=== PATIENT | female | born 1940 | race Caucasian/White ===

== ENCOUNTER 2017-01-02 13:00 | Inpatient (IN) | payer MEDICARE, OTHER ==
[2017-01-09] MEDS ORDERED: Promethazine HCl 25 MG/ML VIAL IM PRN ×2 (08:54→13:03)
[2017-01-09] MEDS ORDERED: Fentanyl 100 MCG/2 ML VIAL SLOW IVP PRN (08:54)
[2017-01-09] MEDS ORDERED: Zolpidem Tartrate 5 MG TAB PO PRN ×2 (08:54→08:57)
[2017-01-09] MEDS ORDERED: Acetaminophen 325 MG TAB PO PRN (08:54)
[2017-01-09] MEDS ORDERED: Ondansetron HCl/PF 4 MG/2 ML Vial IVP PRN ×2 (08:54→13:03)
[2017-01-09] MEDS ORDERED: diphenhydrAMINE 25 MG CAP PO PRN (08:54)
[2017-01-09] MEDS ORDERED: Tranexamic Acid 1,000 MG in Sodium Chloride 0.9% 100 ML IVPB SCH (09:00)
[2017-01-09] MEDS ORDERED: Carvedilol 6.25 MG TAB PO SCH (09:00)
[2017-01-09] MEDS ORDERED: Clindamycin/D5W 900 mg/50 ml Premix Bag ONE (09:40)
[2017-01-09] MEDS ORDERED: Levofloxacin 500 mg/D5W 100 ml Premix Bag ONE (09:40)
[2017-01-09] MEDS ORDERED: Tranexamic Acid 1,000 MG/100 ML BAG ONE ×2 (09:40→13:14)
[2017-01-09] MEDS ORDERED: Fentanyl 100 MCG/2 ML VIAL ONE ×4 (10:03→14:12)
[2017-01-09] MEDS ORDERED: Midazolam HCl 2 mg/2 ml Vial ONE (10:03)
[2017-01-09] MEDS ORDERED: Dexamethasone 4 mg/ml Vial ONE (10:03)
[2017-01-09] MEDS ORDERED: Glycopyrrolate 0.2 MG/ML 5 ML SYRINGE ONE (11:15)
[2017-01-09] MEDS ORDERED: Lidocaine 1% PF 5 ML VIAL ONE (11:15)
[2017-01-09] MEDS ORDERED: Ondansetron HCl/PF 4 MG/2 ML Vial ONE (11:15)
[2017-01-09] MEDS ORDERED: Dexamethasone 20 MG/5 ML VIAL ONE (11:15)
[2017-01-09] MEDS ORDERED: Propofol 200 MG/20 ML VIAL ONE (11:15)
[2017-01-09] MEDS ORDERED: Promethazine HCl 25 MG/ML VIAL SLOW IVP PRN (13:03)
--- NOTE | 2017-01-09 13:21 | OP ---
DATE OF PROCEDURE: 01/09/2017 PREOPERATIVE DIAGNOSIS: End-stage bicompartmental osteoarthritis, left hip. POSTOPERATIVE DIAGNOSIS: End-stage bicompartmental osteoarthritis, left hip. PROCEDURE: Press-fit left total hip arthroplasty. SURGEON: Wilman Walter M.D. RN CLINICAL REVIEW: Kermit Maharaj PA-C. ANESTHESIA: General via endotracheal tube, augmented with a shot fascia iliac block, left side. COMPONENTS USED: [facility] Accolade press fit size 3.5 hip stem with a 36 mm -5 offset me tallic femoral coupled with a size 50 Trident PSL press fit acetabular shell with a 10 degree polyet hylene fixed bearing insert. ESTIMATED BLOOD LOSS: 200 mL. FINDINGS: End-stage severe degenerative bicompartmental disease, bone on bone arthrosis, periarticu lar osteophyte formation, large tear. Serous fusion, hypertrophic synovium and flex contracture of left hip capsule. DRAINS: None. SPECIMENS: None. COMPLICATIONS: None. COUNTS: Correct. INDICATIONS FOR SURGERY: Marilynn is a 76-year-old white female who has had progressive left hip, groi n, and thigh pain for the last 5-7 years. She has failed conservative management and elected to pro ceed with total hip arthroplasty as definitive treatment of her pain. PROCEDURE IN DETAIL: After informed consent was obtained in the preoperative holding area, the jaquelin ent was taken to the operative suite where general anesthesia was induced. The patient was then pos itioned in the lateral decubitus position. The hip was then prepped and draped in usual sterile fas hion. The patient received preoperative antibiotics. Prior to incision, time-out was called and al l members of the surgical team agreed upon site, surgeon, and patient. After this, a longitudinal i ncision was made directly over the trochanter, noted by palpation extending 2 fingerbreadths above a nd below the trochanter. The deeper subcutaneous layer was undermined with Bovie electrocautery. T he iliotibial band was encountered and incised sharply and the plane below this was developed bluntl y. A Charnley retractor was placed to hold this opened. The lateral aspect of the trochanter and t he abductor muscles were encountered and then reflected anteriorly off the trochanter using Bovie el ectrocautery. Once this was completed, the anterior capsule was then encountered and identified and copious capsulotomy was carried out, exposing the femoral neck and head. Dislocation maneuver was t hen performed and an in situ provisional neck cut was then made using the oscillating saw. Attentio n was then turned to acetabular preparation and sequential reaming was carried out up to the appropr iate diameter and a trial was then malleted into place with good firm resistance and no pullout. Th e permanent acetabular shell was then malleted squarely into place, as was the appropriate liner. O nce completed, the wound was copiously irrigated and attention was then turned to femoral preparatio n. Flexion and external rotation was performed of the exposed thigh and femoral elevators were then placed at the proximal aspect of the wound. Canal finder was used to establish the length of the ca nal and sequential reaming was carried out, followed by broaching. Once the appropriate stability w as established with the trial broaches with both flexion, extension and rotational stability, we did trial with neutral and 2 mm offset incremental necks. Once the appropriate size was decided upon, with good stability noted with flexion, extension, internal and external rotation and shuck being ne gative, we removed the femoral trial broach and malletted into place the permanent prosthesis with g ood firm fit, which was also stable to rotation. Again, the hip felt very stable to flexion, extens ion, internal and external rotation. Leg lengths appeared near anatomic clinically and we were quit e happy with prosthesis placement. Copious irrigation was then carried out through the entirety of the wound. Primary closure of the abductors was accomplished with interrupted #2 Vicryl figure-of-e ight stitches and the IT band was then closed with interrupted #2 Vicryl, oversewn with a #2 running barbed Quill stitch. Subcutaneous fascia was closed with running barbed Quill stitch and a subcuti cular Monocryl barbed Quill stitch was used for skin closure and augmented with skin cement. A ster ile dressing was applied. The procedure was terminated without any complication. All counts were co rrect. The patient was awakened in the operative suite and taken to the recovery room in stable con dition.
[2017-01-09] MEDS ORDERED: Bupivacaine HCl 0.5%/Epinephrine 1:200,000/PF 30 ml Vial ONE (14:47)
[2017-01-09] MEDS: Aripiprazole 2 MG TAB PO SCH (14:54)
[2017-01-09] MEDS: Aspirin 325 MG TAB PO SCH ×2 (14:54→21:10)
[2017-01-09] MEDS: Amlodipine 5 MG TAB PO SCH (14:54)
[2017-01-09] MEDS: Lisinopril/Hydrochlorothiazide 20 mg/12.5 mg Tablet PO SCH (14:55)
[2017-01-09] MEDS: hydrALAZINE 25 MG TAB PO SCH ×3 (14:55→21:13)
[2017-01-09] MEDS: Sodium Chloride 0.9% 1,000 ML IV SCH ×2 (14:56→15:56)
--- NOTE | 2017-01-09 14:56 | RAD ---
LEFT HIP: Date: 01-09-17 History: Evaluate hip following total hip arthroplasty. FINDINGS: There is post-operative gas adjacent to the left greater trochanter. There is a left total hip arthr oplasty present demonstrating no evidence for hardware failure. No acute fracture is evident. IMPRESSION: Status post total hip arthroplasty on the left. POS: [facility]
[2017-01-09] MEDS ORDERED: cloNIDine 0.1 MG TAB PO PRN (15:16)
[2017-01-09] MEDS: traMADol HCl 50 MG TAB PO PRN (15:54)
--- NOTE | 2017-01-09 16:32 | CON ---
DATE OF CONSULTATION: 01/09/2017 PRIMARY CARE PHYSICIAN: AMERICO Calle CONSULTING PHYSICIAN: Dr. Wilman Walter. HISTORY OF PRESENTING ILLNESS: Ms. Betancourt is a very pleasant 76-year-old female with past medical his tory of hypertension; chronic kidney disease, stage 3; and dyslipidemia, who underwent left hip tota l arthroplasty today at [facility] for advanced osteoarthritis. She is status post surg familia and internal medicine team has been consulted for medical management. Chart and labs reviewed f rom most recent work done. The patient was seen and examined in the room 3316. At this time, the patient reports some pain in the surgical area. She is about one hour post-surger y. Family is present in the room. No other complaints at this time. She denies any recent illness es. No fever, chills, nausea, vomiting, diarrhea. No hematochezia or melena. No chest pain, short ness of breath, orthopnea, PND, or edema. She denies any dysuria, frequency or urgency. PAST MEDICAL HISTORY: 1. Hypertension. 2. Dyslipidemia. 3. GERD. 4. Chronic kidney disease, stage 3. PAST SURGICAL HISTORY: 1. Back surgery x3. 2. Stimulator implantation. 3. Hysterectomy. ALLERGIES: TORADOL, BUTORPHANOL, ROCEPHIN, and VANCOMYCIN. SOCIAL HISTORY: She is and lives alone. She moves around with the help of a walker. She h as no history of tobacco or alcohol abuse. FAMILY HISTORY: Significant for lung cancer in her brother. CURRENT MEDICATIONS: Listed in the [facility] as follows, lisinopril/hydrochlorothiazide 20/12.5 mg d aily, Cymbalta 1 tablet p.o. daily, Abilify 1 tab p.o. in the morning, Coreg 12.5 mg p.o. b.i.d., as pirin 81 mg daily, Norvasc 5 mg in the morning, Voca as needed, Ambien 10 mg at bedtime as needed, pravastatin 40 mg at night, Protonix 40 mg p.o. b.i.d., hydralazine 50 mg p.o. t.i.d., and vitamin D 3 of 2000 units daily. REVIEW OF SYSTEMS: The following complete review of systems was negative, except for those mentione d in the history and physical: Constitutional: Weight loss or gain, ability to conduct usual activities. Skin: Rash, itching. Eyes: Double vision, pain. ENT/Mouth: Nose bleeding, neck stiffness, pain, tenderness. Cardiovascular: Palpitations, dyspnea on exertion, orthopnea. Respiratory: Shortness of breath, wheezing, cough, hemoptysis, fever, or night sweats. Gastrointestinal: Poor appetite, abdominal pain, heartburn, nausea, vomiting, constipation, or diar malcom. Genitourinary: Urgency, frequency, dysuria, nocturia. Musculoskeletal: Pain, swelling. Neurologic/Psychiatric: Anxiety, depression. Allergy/Immunologic: Skin rash, bleeding tendency. LABORATORY EXAMINATION: PT, PTT, and INR drawn today and are within normal limits. Labs are review ed from 01/02/2017. CBC shows WBCs at 7.7, hemoglobin 11, platelet count of 290, 80% neutrophils. Serum chemistries show sodium 138, potassium 4.5, chloride 108, bicarbonate 16, BUN 33, creatinine 1 .66, calcium 9.0. Her urinalysis on 01/02/2017 showed small leukocyte esterase, 21-50 wbc's, +4 edgardo teria, and +1 yeast. PHYSICAL EXAMINATION: VITAL SIGNS: Include temperature 97.3, pulse of 72, respirations 18, saturating 93% on room air, bl ood pressure 105/85. GENERAL: No acute distress, awake, alert, oriented x3. She is somewhat somnolent as an after effec t of anesthetic and pain medications most likely, but easily woken up. HEENT: Mucous membrane is slightly dry. No oropharyngeal exudate or erythema. Head is normocephal ic, atraumatic. Pupils equal, reactive to light and accommodation. Extraocular movements intact. NECK: Supple without any lymphadenopathy, JVD, or bruit. CHEST: Clear to auscultation without any wheezing, rales, or rhonchi. Rate and rhythm is regular w ithout any murmur, rubs, or gallops. ABDOMEN: Soft, nontender, nondistended with positive bowel sounds. EXTREMITIES: Free of any cyanosis, clubbing, or edema. NEUROLOGIC: Nonfocal. SKIN: Free of any rashes or bruises. Feels warm and dry to touch. VASCULAR: +2 pedal pulses felt bilaterally. PSYCHIATRIC: Normal affect. IMPRESSION AND PLAN: 1. History of hypertension. The patient was last admitted to our facility in 07/2016 with complain ts of hypotension and nearly passing out. At this time, we will be carefully restarting her home me dications with parameters of holding for systolic blood pressure less than 120. 2. Status post left total hip arthroplasty. Deep venous thrombosis prophylaxis and pain control as per the primary team. The patient is on aspirin twice a day. 3. Possible urinary tract infection. The patient has been started on levofloxacin at this time. W e will continue that. Her last urine culture was done in 01/2016, which showed Escherichia coli, wh ich was resistant to ciprofloxacin, Bactrim, and ampicillin. At this time, she is also receiving cl indamycin as the postoperative antibiotics. We will repeat her urinalysis and culture at this time. Given her resistant species in the past, we would recommend changing her from levofloxacin to poss ibly cephalosporin, but unfortunately the patient is allergic to it. The only choice left would be to start her on meropenem at this time. We will add probiotics. 4. History of dyslipidemia. Continue with atorvastatin for now. 5. Chronic kidney disease. It appears to be at baseline. Continue for IV fluids as per orders fro Orthopedics for now. Repeat CBC and BMP in the morning. 6. Add p.r.n. medication orders. DISPOSITION: Thank you for letting us participate in the care of this pleasant patient. Internal medicine team will follow along.
[2017-01-09] MEDS: MEROPENEM 1 GM/50 ML 1 GM in Premix Bag 1 BAG IVPB SCH (17:15)
[2017-01-09] MEDS: Clindamycin/D5W 600 MG in Premix Bag 1 BAG IVPB SCH (17:22)
[2017-01-09] MEDS: HYDROcodone/Acetaminophen 10/325 mg Tablet PO PRN ×2 (17:32→21:36)
[2017-01-09 19:36] LABS: Bilirubin Negative (Negative); Blood, Urine Negative (Negative); Glucose, Urine (Dipstick) 100 mg/dL (Negative); Ketone, Urine Negative (Negative); Nitrite Negative (Negative); Protein, Urine (Dipstick) 100 mg/dL (Neg-Trace); Urobilinogen 0.2 mg/dL (0.2-1.0)
[2017-01-09 19:38] LABS: Bacteria/HPF None Seen HPF (None Seen); Hyaline Casts/LPF 0-3 HYALINE CAST LPF (0-3 Hyaline); RBC/HPF 0-3 HPF (0-3); Squamous Epithelial 0-3 HPF (0-3); WBC/HPF 0-3 HPF (0-3)
[2017-01-09] MEDS: Carvedilol 6.25 MG TAB PO SCH (21:11)
[2017-01-09] MEDS: Atorvastatin Calcium 10 MG TAB PO SCH (21:14)
[2017-01-09] MEDS: Oxybutynin 5 MG TAB PO SCH (21:14)
[2017-01-09] MEDS ORDERED: Vancomycin HCl 1.5 GM in Sodium Chloride 0.9% 250 ML 300 ML IVPB SCH (22:00)
[2017-01-09] MEDS ORDERED: Meropenem 1 GM in Sodium Chloride 0.9% 100 ML IVPB SCH (22:00)
[2017-01-10] MEDS: traMADol HCl 50 MG TAB PO PRN ×2 (00:38→19:51)
[2017-01-10] MEDS: MEROPENEM 1 GM/50 ML 1 GM in Premix Bag 1 BAG IVPB SCH ×3 (00:54→15:32)
[2017-01-10] MEDS: Sodium Chloride 0.9% 1,000 ML IV SCH ×2 (02:38→15:33)
[2017-01-10] MEDS: Clindamycin/D5W 600 MG in Premix Bag 1 BAG IVPB SCH ×2 (02:39→08:54)
[2017-01-10] MEDS: HYDROcodone/Acetaminophen 10/325 mg Tablet PO PRN ×3 (02:46→15:47)
[2017-01-10] MEDS: Fentanyl 100 MCG/2 ML VIAL SLOW IVP PRN ×2 (04:19→22:16)
[2017-01-10 05:17] LABS: #Monocytes 0.7 thou/uL (0.11-0.59); #Neutrophils 9.5 thou/uL (1.40-6.50); %Basophils 0.1 % (0.0-1.0); %Eosinophils 0.3 % (0.0-10.0); %Lymphocytes 9.1 % (21.0-51.0); %Monocytes 5.8 % (0.0-10.0); Hematocrit 29.3 % (36.0-47.0); Mean Platelet Volume 6.3 fL (7.4-10.4); Red Blood Cell (RBC) Count 3.08 mill/uL (4.20-5.40); White Blood Cell (WBC) Count 11.2 thou/uL (4.8-10.8)
[2017-01-10 05:31] LABS: Anion Gap 12 mmol/L (10-20); BUN (Urea Nitrogen) 40 mg/dL (9.8-20.1); Calc. Creatinine Clearance 34 mL/min (70-130); Calcium 8.6 mg/dL (7.8-10.44); Carbon Dioxide 20 mmol/L (23-31); Chloride 106 mmol/L (98-107); Estimated GFR-MDRD 25
--- NOTE | 2017-01-10 07:51 | PDOC.PN ---
- Subjective Encounter Start Date: 01/10/17 Encounter Start Time: 07:49 -: old records requested/rev Patient seen and examined. No new complaints. No overnight events - Objective Resuscitation Status: Resuscitation Status FULL:Full Resuscitation MAR Reviewed: Yes Vital Signs & Weight: Vital Signs (12 hours) Temp Pulse Resp BP BP Pulse Ox 01/10/17 04:15 98.5 F 77 15 104/65 92 L 01/10/17 00:34 98 F 75 16 120/75 92 L 01/09/17 21:13 87 136/78 01/09/17 21:11 136/78 01/09/17 20:18 97.9 F 86 15 136/78 96 Weight Weight 194 lb 0.003 oz I&O: 01/09/17 01/10/17 01/11/17 06:59 06:59 06:59 Intake Total 200 Output Total 700 Balance -500 Result Diagrams: 01/10/17 04:32 01/10/17 04:32 Radiology Reviewed by me: Yes Phys Exam - Physical Examination Constitutional: NAD HEENT: PERRLA, moist MMs, sclera anicteric Neck: no JVD, supple Respiratory: no wheezing, no rales, no rhonchi Cardiovascular: RRR, no significant murmur, no rub Gastrointestinal: soft, non-tender, no distention, positive bowel sounds Musculoskeletal: no edema, pulses present left hip surgical site with dressing Neurological: non-focal, normal sensation Psychiatric: normal affect, A&O x 3 Skin: no rash, normal turgor Dx/Plan (1) Status post left hip replacement Code(s): Z96.642 - PRESENCE OF LEFT ARTIFICIAL HIP JOINT Status: Acute (2) Obesity (BMI 30.0-34.9) Code(s): E66.9 - OBESITY, UNSPECIFIED Status: Chronic (3) Anxiety and depression Code(s): F41.9 - ANXIETY DISORDER, UNSPECIFIED; F32.9 - MAJOR DEPRESSIVE DISORDER, SINGLE EPISODE, UNSPECIFIED Status: Chronic (4) Chronic pain disorder Code(s): G89.4 - CHRONIC PAIN SYNDROME Status: Chronic Comment: (5) Dyslipidemia Code(s): E78.5 - HYPERLIPIDEMIA, UNSPECIFIED Status: Chronic (6) Hypertension Code(s): I10 - ESSENTIAL (PRIMARY) HYPERTENSION Status: Chronic Qualifiers: (7) CKD (chronic kidney disease) stage 4, GFR 15-29 ml/min Code(s): N18.4 - CHRONIC KIDNEY DISEASE, STAGE 4 (SEVERE) Status: Chronic (8) Anemia of renal disease Code(s): D63.1 - ANEMIA IN CHRONIC KIDNEY DISEASE Status: Chronic (9) GERD (gastroesophageal reflux disease) Code(s): K21.9 - GASTRO-ESOPHAGEAL REFLUX DISEASE WITHOUT ESOPHAGITIS Status: Chronic Qualifiers: Esophagitis presence: with esophagitis Qualified Code(s): K21.0 - Gastro- esophageal reflux disease with esophagitis - Plan cont current plan of care, PT/OT, nephrology social worker * continue aspirin for DVT prophylaxis * continue protonix for GI prophylaxis * continue iron * pain controlled with current pain meds * home medication reconciled * medication reviewed as below * symptomatic treatment * PT/OT as per [facility] protocol * code status- Full code... Review of Systems - Review of Systems ENT: negative: Ear Pain, Ear Discharge, Nose Pain, Nose Discharge, Nose Congestion, Mouth Pain, Mouth Swelling, Throat Pain, Throat Swelling, Other Respiratory: negative: Cough, Dry, Shortness of Breath, Hemoptysis, SOB with Excertion, Pleuritic Pain, Sputum, Wheezing Cardiovascular: negative: Chest Pain, Palpitations, Orthopnea, Paroxysmal Noc. Dyspnea, Edema, Light Headedness, Other Gastrointestinal: negative: Nausea, Vomiting, Abdominal Pain, Diarrhea, Constipation, Melena, Hematochezia, Other Genitourinary: negative: Dysuria, Frequency, Incontinence, Hematuria, Retention , Other Musculoskeletal: negative: Neck Pain, Shoulder Pain, Arm Pain, Back Pain, Hand Pain, Leg Pain, Foot Pain, Other - Medications/Allergies Allergies/Adverse Reactions: Allergies Allergy/AdvReac Type Severity Reaction Status Date / Time ketorolac [From Toradol] Allergy Verified 01/02/17 12:39 butorphanol tartrate AdvReac Verified 01/02/17 12:39 [From Stadol] ceftriaxone sodium AdvReac Verified 01/02/17 12:39 [From Rocephin] vancomycin AdvReac Verified 01/02/17 12:39 Medications: Current Medications Acetaminophen (Tylenol) 650 mg PO Q4H PRN PRN Reason: RUSS/ T > 101F; Mild Pain (1-3) Hydrocodone Bitart/Acetaminophen ([place] 10/325) 1 tab PO Q4H PRN PRN Reason: Moderate Pain (4-6) Last Admin: 01/09/17 17:32 Dose: 1 tab Hydrocodone Bitart/Acetaminophen ([place] 10/325) 2 tab PO Q4H PRN PRN Reason: Severe Pain (7-10) Last Admin: 01/10/17 02:46 Dose: 2 tab Amlodipine Bes[facility]) [facility] [place] Last Admin: 01/09/17 14:54 Dose: Not Given Aripiprazole (Abilify) [facility] [place] Last Admin: 01/09/17 14:54 Dose: Not Given Aspirin (Aspirin) 325 mg PO BID [facility] Last Admin: 01/09/17 21:10 Dose: 325 mg Atorvastatin Calcium (Lipitor) 10 mg PO QPM [facility] Last Admin: 01/09/17 21:14 Dose: 10 mg Carvedilol (Coreg) 12.5 mg PO BID [facility] Last Admin: 01/09/17 21:11 Dose: 12.5 mg Cholecalciferol (Vitamin D3) 2,000 units PO DAILY [facility] Last Admin: 01/09/17 14:54 Dose: Not Given Clonidine (Catapres) 0.1 mg PO Q4H PRN PRN Reason: SBP>160 Diphenhydramine HCl (Benadryl) 25 mg PO Q6H PRN PRN Reason: Itching Duloxetine HCl (Cymbalta) [facility] [place] Last Admin: 01/09/17 14:54 Dose: Not Given Fentanyl (Sublimaze) 50 mcg SLOW IVP Q30MIN PRN PRN Reason: Moderate Pain (4-6) Last Admin: 01/10/17 04:19 Dose: 50 mcg Fentanyl (Sublimaze) 100 mcg SLOW IVP Q1H PRN PRN Reason: Severe Pain (7-10) Ferrous Gluconate (Fergon) 324 mg PO BID-[facility] Lisinopril/HCTZ (Prinizide 20-12.5) 1 tab PO QAM [facility] Last Admin: 01/09/17 14:55 Dose: Not Given Hydralazine HCl (Apresoline) 50 mg PO TID [facility] Last Admin: 01/09/17 21:13 Dose: 50 mg Sodium Chloride (Normal Saline 0.9%) 1,000 mls @ 100 mls/hr IV .Q10H [facility] Last Admin: 01/10/17 02:38 Dose: 1,000 mls Levofloxacin 500 mg/ Device 100 mls @ 100 mls/hr IVPB Q24HR [facility] Stop: 01/10/17 23:59 Clindamycin Phosphate/Dextrose (600 mg/ Device) 50 mls @ 100 mls/hr IVPB 0200, 1000,1800 [facility] Stop: 01/10/17 10:29 Last Admin: 01/10/17 02:39 Dose: 50 mls Meropenem 1 gm/ Device 50 mls @ 100 mls/hr IVPB 0800,1600,2359 [facility] Last Admin: 01/10/17 00:54 Dose: 50 mls Iron/Minerals/Multivitamins (Theragran M) 1 tab PO DAILY [facility] Ondansetron HCl (Zofran) 4 mg IVP Q6H PRN PRN Reason: Nausea/Vomiting Oxybutynin Chloride (Ditropan) 5 mg PO BID [facility] Last Admin: 01/09/17 21:14 Dose: 5 mg Pantoprazole Sodium (Protonix) 40 mg PO BID [facility] Last Admin: 01/09/17 21:14 Dose: 40 mg Promethazine HCl (Phenergan) 12.5 mg IM Q4H PRN PRN Reason: Nausea/Vomiting Saccharomyces Boulardii (Florastor) 250 mg PO DAILY [facility] Senna/Docusate Sodium (Senokot S) 2 tab PO BID [facility] Sodium Chloride (Flush - Normal Saline) 10 ml IVF PRN PRN PRN Reason: Saline Flush Tramadol HCl (Ultram) 100 mg PO Q6H PRN PRN Reason: Mild Pain (1-3) Last Admin: 01/10/17 00:38 Dose: 100 mg Zolpidem Tartrate (Ambien) 5 mg PO HSPRN PRN PRN Reason: Insomnia Last Admin: 01/09/17 21:37 Dose: 5 mg
[2017-01-10] MEDS: Lisinopril/Hydrochlorothiazide 20 mg/12.5 mg Tablet PO SCH (08:55)
[2017-01-10] MEDS: hydrALAZINE 25 MG TAB PO SCH ×3 (08:55→22:06)
[2017-01-10] MEDS: Aspirin 325 MG TAB PO SCH ×2 (08:55→22:04)
[2017-01-10] MEDS: Amlodipine 5 MG TAB PO SCH (08:55)
[2017-01-10] MEDS: Multivitamin W/ Minerals 1 TAB PO SCH (08:56)
[2017-01-10] MEDS: Saccharomyces boulardii 250 MG CAP PO SCH (08:56)
[2017-01-10] MEDS: Senokot S 8.6-50 MG TAB PO SCH ×2 (08:56→22:08)
[2017-01-10] MEDS: Oxybutynin 5 MG TAB PO SCH ×2 (08:56→22:07)
[2017-01-10] MEDS: Ferrous Gluconate 324 MG TAB PO SCH ×2 (08:57→18:01)
[2017-01-10] MEDS: Carvedilol 6.25 MG TAB PO SCH ×2 (08:57→22:07)
[2017-01-10] MEDS: Aripiprazole 2 MG TAB PO SCH (08:58)
[2017-01-10] MEDS: Atorvastatin Calcium 10 MG TAB PO SCH (22:07)
[2017-01-11] MEDS: MEROPENEM 1 GM/50 ML 1 GM in Premix Bag 1 BAG IVPB SCH ×3 (00:28→17:57)
[2017-01-11] MEDS: Sodium Chloride 0.9% 1,000 ML IV SCH ×2 (01:24→14:35)
[2017-01-11] MEDS: HYDROcodone/Acetaminophen 10/325 mg Tablet PO PRN ×3 (01:32→17:55)
[2017-01-11 04:25] LABS: Hematocrit 26.7 % (36.0-47.0); Mean Platelet Volume 5.9 fL (7.4-10.4); Red Blood Cell (RBC) Count 2.77 mill/uL (4.20-5.40); White Blood Cell (WBC) Count 10.2 thou/uL (4.8-10.8)
[2017-01-11] MEDS: Ferrous Gluconate 324 MG TAB PO SCH ×2 (09:02→17:51)
[2017-01-11] MEDS: Senokot S 8.6-50 MG TAB PO SCH (09:04)
[2017-01-11] MEDS: Multivitamin W/ Minerals 1 TAB PO SCH (09:05)
[2017-01-11] MEDS: Saccharomyces boulardii 250 MG CAP PO SCH (09:06)
[2017-01-11] MEDS: Lisinopril/Hydrochlorothiazide 20 mg/12.5 mg Tablet PO SCH (09:06)
[2017-01-11] MEDS: Amlodipine 5 MG TAB PO SCH (09:07)
[2017-01-11] MEDS: Aspirin 325 MG TAB PO SCH (09:07)
[2017-01-11] MEDS: Carvedilol 6.25 MG TAB PO SCH (09:10)
[2017-01-11] MEDS: Oxybutynin 5 MG TAB PO SCH (09:12)
[2017-01-11] MEDS: hydrALAZINE 25 MG TAB PO SCH ×2 (09:15→17:51)
[2017-01-11] MEDS: Aripiprazole 2 MG TAB PO SCH (10:04)
--- NOTE | 2017-01-11 11:22 | PDOC.PN ---
- Subjective Encounter Start Date: 01/11/17 Encounter Start Time: 11:18 Ms. Betancourt was seen in follow-up of Hypertension, and chronic kidney disease. She is a bit drowsy this morning, but otherwise does not have any complaints. - Objective Resuscitation Status: Resuscitation Status FULL:Full Resuscitation MAR Reviewed: Yes Vital Signs & Weight: Vital Signs (12 hours) Temp Pulse Resp BP BP Pulse Ox 01/11/17 09:15 90 111/72 01/11/17 09:10 111/72 01/11/17 09:07 90 01/11/17 09:06 90 01/11/17 07:55 99.2 F 90 14 111/72 93 L 01/11/17 05:24 98.7 F 84 18 103/63 92 L 01/11/17 01:05 98.7 F 81 18 107/69 93 L Weight Admit Weight 194 lb Weight 194 lb I&O: 01/10/17 01/11/17 01/12/17 06:59 06:59 06:59 Intake Total 200 Output Total 700 600 300 Balance -500 -600 -300 Result Diagrams: 01/11/17 04:15 01/10/17 04:32 Phys Exam - Physical Examination HEENT: PERRLA Respiratory: no wheezing, no rales, no rhonchi, clear to auscultation bilateral Cardiovascular: RRR, no significant murmur, no rub Gastrointestinal: soft, non-tender, positive bowel sounds Musculoskeletal: no edema Dx/Plan (1) Hypertension Code(s): I10 - ESSENTIAL (PRIMARY) HYPERTENSION Status: Chronic Qualifiers: (2) Status post left hip replacement Code(s): Z96.642 - PRESENCE OF LEFT ARTIFICIAL HIP JOINT Status: Acute (3) CKD (chronic kidney disease) stage 4, GFR 15-29 ml/min Code(s): N18.4 - CHRONIC KIDNEY DISEASE, STAGE 4 (SEVERE) Status: Chronic (4) GERD (gastroesophageal reflux disease) Code(s): K21.9 - GASTRO-ESOPHAGEAL REFLUX DISEASE WITHOUT ESOPHAGITIS Status: Chronic Qualifiers: Esophagitis presence: with esophagitis Qualified Code(s): K21.0 - Gastro- esophageal reflux disease with esophagitis (5) Obesity (BMI 30.0-34.9) Code(s): E66.9 - OBESITY, UNSPECIFIED Status: Chronic - Plan * HTN- blood pressure has been on the lower side, and her blood pressure medications were held this morning. Will continue to hold * Hyperkalemia- She tends to run on the higher side, even on past admissions, hopefully by holding Lisinopril this will help * Chronic kidney disease- she is at her baseline level of creatinine * .
[2017-01-11 20:24] VITALS: BMI 31.1
[2017-01-11 20:32] VITALS: BP 116/73; TEMP 98.7
--- NOTE | 2017-01-12 06:13 | DIS ---
DATE OF ADMISSION: 01/09/2017 PRIMARY CARE PHYSICIAN: 01/11/2017 DISCHARGE DISPOSITION: Inpatient rehabilitation. DISCHARGE DIAGNOSES: 1. Status post left hip arthroplasty. 2. Hypertension. 3. Chronic kidney disease stage 3. 4. Hyperkalemia. 5. Hyperlipidemia. 6. Probable volume depletion. DISCHARGE MEDICATIONS: Please note that the patient's lisinopril/hydrochlorothiazide is currently on hold. This is due to elevated potassium level as well as low blood pressure that she experienced du ring her hospital stay. It is to be restarted after a BMP has been ordered and will be restarted at the discretion of the attending physician. Other medications include Pravastatin 40 mg at bedtime, pantoprazole 40 mg twice a day, oxybutynin 5 mg twice a day, [place] 10/325 one half tablet as needed, Cymbalta 60 mg daily, hydralazine 50 mg 3 maribell es a day, vitamin D3, cholecalciferol 2000 units daily, Coreg 12.5 mg twice a day, aspirin 81 mg douglas y, Aripiprazole 1 tablet daily, and amlodipine 5 mg daily. CODE STATUS: Full code. ALLERGIES: TORADOL, BUTORPHANOL, CEFTRIAXONE and VANCOMYCIN. HOSPITAL COURSE: Ms. Betancourt is a pleasant 76-year-old female who was admitted for an elective left tot al hip replacement. The Hospitalist Service was consulted for the management of hypertension as well as chronic kidney disease. The patient had a fairly uneventful postoperative course; however, she d id experience some hypotension postoperatively. This required her antihypertensive medications to be held. Her blood pressure had been recorded as low as 90 systolic. She also was noted to have stabl e chronic kidney disease. Her creatinine of 1.94 with very close to her baseline; however, her potas sium was slightly elevated. Given these indices we will go ahead and hold her lisinopril/hydrochloro thiazide which was also on hold due to her low blood pressure. Once she is in rehab her BMP should b e checked in about 2 days. Continue to hold the lisinopril during this time and then restart after t he BMP results are available to the attending physician and then he can restart the lisinopril/hydroc hlorothiazide if it is felt indicated. Amlodipine will also be held for systolic blood pressure less than 110. At the time of discharge she was stable with no additional complaints.
== END 2017-01-11 19:24 | DRG 470 ==
LOC: SJJU 01-09 08:06
PROVIDERS: ADMIT Orthopaedic Surgery; ATTEND Orthopaedic Surgery
PROC: 0SRB02A Replacement of Left Hip Joint with Metal on Polyethylene Synthetic Substitute, Uncemented, Open Approach (ICD-10-PCS; principal; 2017-01-09)
PROC: 3E0T3BZ Introduction of Anesthetic Agent into Peripheral Nerves and Plexi, Percutaneous Approach (ICD-10-PCS; 2017-01-09)
DX: M16.12 Unilateral primary osteoarthritis, left hip (principal); E87.5 Hyperkalemia; N39.0 Urinary tract infection, site not specified; M87.052 Idiopathic aseptic necrosis of left femur; N18.3 Chronic kidney disease, stage 3 (moderate); E78.5 Hyperlipidemia, unspecified; I12.9 Hypertensive chronic kidney disease with stage 1 through stage 4 chronic kidney disease, or unspecified chronic kidney disease; I95.81 Postprocedural hypotension; K21.9 Gastro-esophageal reflux disease without esophagitis; E66.9 Obesity, unspecified; Z68.30 Body mass index [BMI] 30.0-30.9, adult; F41.9 Anxiety disorder, unspecified; F32.9 Major depressive disorder, single episode, unspecified; G89.4 Chronic pain syndrome; D63.1 Anemia in chronic kidney disease
CPT/HCPCS: 36415; 80048; 81003; 81015; 85027; 85610; 85730; 87086; C1776; G8978-GP-CM; G8979-GP-CI; G8987-GO-CJ; J0670; J1100; J1956; J2001; J2250; J2405; J2704; J3010; J3490

== ENCOUNTER 2017-08-22 10:10 | Outpatient (CLI) | payer MEDICARE, OTHER | END 2017-08-22 10:11 | disposition home or self-care (01) | LOC: BICCT 10:10 | PROVIDERS: ATTEND Internal Medicine Nephrology | DX: N28.89 Other specified disorders of kidney and ureter (principal); E27.9 Disorder of adrenal gland, unspecified; R91.8 Other nonspecific abnormal finding of lung field; N28.1 Cyst of kidney, acquired; N26.1 Atrophy of kidney (terminal); I70.90 Unspecified atherosclerosis; K44.9 Diaphragmatic hernia without obstruction or gangrene | CPT/HCPCS: 71250; 74150 ==

== ENCOUNTER 2017-09-14 12:17 | Emergency (ER) | payer MEDICARE, OTHER ==
[2017-09-14] MEDS ORDERED: Lidocaine 1% w/Epinephrine 1:100K 20 ML VIAL ONE (12:35)
[2017-09-14] MEDS ORDERED: Adacel (T-DAP) 0.5 ML VIAL ONE (12:35)
--- NOTE | 2017-09-14 13:06 | RAD ---
THREE VIEWS OF THE LEFT FORELEG: HISTORY: Left leg pain and laceration status post fall from bed 2-3 hours prior to arrival. FINDINGS: There is a laceration involving the anterior aspect of the mid left foreleg without evidence of radio paque debris. No acute fracture is evident. There is an intraarticular body measuring 1.8 cm overly ing the posterolateral aspect of the left knee joint. IMPRESSION: Soft tissue laceration of the anterior left foreleg. No acute fracture demonstrated. POS: [facility]
[2017-09-14] MEDS ORDERED: Bacitracin Zinc 1 Packet ONE ×2 (13:28→13:29)
== END 2017-09-14 13:54 | disposition home or self-care (01) ==
LOC: SCSER 12:17
DX: S81.812A Laceration without foreign body, left lower leg, initial encounter (principal); E78.5 Hyperlipidemia, unspecified; I10 Essential (primary) hypertension; F32.9 Major depressive disorder, single episode, unspecified; Z79.82 Long term (current) use of aspirin; Z79.899 Other long term (current) drug therapy; W06.XXXA Fall from bed, initial encounter
CPT/HCPCS: 12004; 90471; 90715; J2001

== ENCOUNTER 2018-02-27 09:53 | Outpatient (CLI) | payer MEDICARE, OTHER ==
--- NOTE | 2018-02-27 11:39 | ULT ---
RENAL ULTRASOUND: History: N18.3, hypertension. Evaluate for renal artery stenosis. Technique: Multiple longitudinal and transverse images of the kidneys obtained using a multihertz cur vilinear transducer. Real-time, color flow, and spectral waveform doppler analysis used to evaluate t he kidneys. FINDINGS: Both kidneys are atrophied and hyperechoic. Right kidney measures 8.2 and left kidney 9.4 cm from kym e to pole. Multiple bilateral renal cysts are seen. The largest in the right kidney measures 2.9 x 2.7 x 2.6 cm while the largest on the left measures 1.9 x 1.7 x 1.9 cm. Aortic flow velocities maximum 57 cm/sec. Right renal artery measures 37 cm/sec and left renal artery 50 cm/sec. This gives a right arterial aortic ratio of 0.64 in the right renal artery and 0.88 in th e left renal artery. Findings may represent left renal artery stenosis. IMPRESSION: Atrophy of right kidney and findings concerning for left renal artery stenosis. No evidence of hydron ephrosis seen. POS: [facility]
== END 2018-02-27 09:54 | disposition home or self-care (01) ==
LOC: BICULT 09:53
PROVIDERS: ATTEND Internal Medicine Nephrology
DX: N18.3 Chronic kidney disease, stage 3 (moderate) (principal); N26.1 Atrophy of kidney (terminal)
CPT/HCPCS: 36415; 76700; 76770; 80069

== ENCOUNTER 2018-03-25 16:24 | Outpatient (CLI) | payer MEDICARE, OTHER ==
--- NOTE | 2018-03-25 18:12 | RAD ---
RIGHT SHOULDER THREE VIEWS: INDICATIONS: Pain. COMPARISON: None. FINDINGS: There is enthesopathic change of the greater and less tuberosity. No definite acute fracture or subl uxation is grossly evident. There is mild osteoarthritic change suggested involving the glenohumeral joint. The visualized right lung is clear. IMPRESSION: 1. Mild glenohumeral osteoarthrosis. 2. Mild enthesopathic change of the tuberosities of the right proximal humerus. 3. No definite acute fracture or subluxation. POS: [facility]
== END 2018-03-25 16:25 | disposition home or self-care (01) ==
LOC: RAD-FRANK 16:24
PROVIDERS: ATTEND Nurse Practitioner Family
DX: M25.511 Pain in right shoulder (principal); M19.011 Primary osteoarthritis, right shoulder

== ENCOUNTER 2018-07-02 16:11 | Emergency (ER) | payer MEDICARE, OTHER ==
--- NOTE | 2018-07-02 19:03 | CT ---
CT HEAD NONCONTRAST: 07/02/18 HISTORY: Altered mental status. Vision abnormalities. FINDINGS: There is no evidence of acute intracranial hemorrhage or infarct. Mild chronic ischemic small vessel disease throughout the periventricular white matter. Along the lateral wall of the right posterior fossa, an oval focus of dystrophic calcification is 1.6 cm length x 1.1 cm depth. IMPRESSION: Small mass-like cluster of dystrophic calcification along the lateral aspect of the right posterior f abby. While this could be related to the dural sinus, an underlying mass must be considered. It is no t clear if it is intra-axial or extra-axial. It does not have an aggressive appearance. For further evaluation, please consider nonemergent MRI br ain, with and without gadolinium contrast, for better characterization. POS: [facility]
[2018-07-02 19:10] LABS: #Basophils 0.1 thou/uL (0.0-0.2); #Eosinphils 0.2 thou/uL (0.0-0.7); #Lymphocytes 2.5 thou/uL (1.20-3.40); #Monocytes 0.6 thou/uL (0.11-0.59); #Neutrophils 3.7 thou/uL (1.40-6.50); %Eosinophils 3.5 % (0.0-10.0); %Lymphocytes 35.7 % (21.0-51.0); %Monocytes 8.1 % (0.0-10.0); %Neutrophils 51.8 % (42.0-75.0); Hemoglobin 10.4 g/dL (12.0-16.0); Mean Corpuscular HGB CONC 31.8 g/dL (32.0-36.0); Mean Corpuscular Hemoglobin 30.3 pg (27.0-31.0); Mean Corpuscular Volume 95.2 fL (78.0-98.0); Mean Platelet Volume 6.6 fL (7.4-10.4); Platelet Count 293 thou/uL (130-400); RBC Distribution Width 12.6 % (11.5-14.5); Red Blood Cell (RBC) Count 3.42 mill/uL (4.20-5.40); White Blood Cell (WBC) Count 7.1 thou/uL (4.8-10.8)
[2018-07-02 19:31] LABS: Bilirubin Negative (Negative); Blood, Urine Trace (Negative); Clarity CLOUDY (Clear); Glucose, Urine (Dipstick) Negative (Negative); Leukocyte Moderate (Negative); Nitrite Negative (Negative); Protein, Urine (Dipstick) 100 mg/dL (Neg-Trace); Urobilinogen 0.2 mg/dL (0.2-1.0); pH, Urine 5.5 (5.0-9.0)
[2018-07-02 19:32] LABS: ALT (SGPT) 9 U/L (8-55); AST (SGOT) 14 U/L (5-34); Albumin 3.8 g/dL (3.4-4.8); Alkaline Phosphatase 80 U/L (40-150); Anion Gap 13 mmol/L (10-20); BUN (Urea Nitrogen) 50 mg/dL (9.8-20.1); Bilirubin, Total 0.2 mg/dL (0.2-1.2); Calc. Creatinine Clearance 0 mL/min (70-130); Carbon Dioxide 21 mmol/L (23-31); Chloride 111 mmol/L (98-107); Estimated GFR-MDRD 21; Globulin 2.9 g/dL (2.4-3.5); Glucose 90 mg/dL (83-110); Potassium 5.5 mmol/L (3.5-5.1); Protein, Total 6.7 g/dL (6.0-8.3); Sodium 139 mmol/L (136-145)
[2018-07-02 19:33] LABS: Bacteria/HPF 3+ HPF (None Seen); Hyaline Casts/LPF 0-3 HYALINE CAST LPF (0-3 Hyaline); Pathc Cast-AUWi Flag 0.13 (0-2.49); RBC/HPF 0-3 HPF (0-3); Squamous Epithelial None Seen HPF (0-3)
[2018-07-02] MEDS ORDERED: Nitrofurantoin Monohyd/M-Cryst 100 MG CAP PO SCH (21:00)
--- NOTE | 2018-07-06 16:48 | EKG ---
Test Reason : Blood Pressure : / mmHG Vent. Rate : 058 BPM Atrial Rate : 058 BPM P-R Int : 192 ms QRS Dur : 132 ms QT Int : 484 ms P-R-T Axes : 066 010 067 degrees QTc Int : 475 ms Sinus bradycardia Right bundle branch block Inferior infarct , age undetermined Cannot rule out Anterior infarct , age undetermined Abnormal ECG Confirmed by NATHANIEL ALEXIS ([id number]), communications editor CLEMENTE MCFARLAND ([id number]) on 07/06/2018 4:47:08 PM Referred By: Confirmed By:NATHANIEL ALEXIS
== END 2018-07-02 21:33 | disposition home or self-care (01) ==
LOC: ERS 16:11
DX: N39.0 Urinary tract infection, site not specified (principal); I10 Essential (primary) hypertension; Z79.899 Other long term (current) drug therapy
CPT/HCPCS: 70450; 80053; 81003; 81015; 84484; 85025; 87077; 87086; 87186; 93005; J1956

== ENCOUNTER 2019-07-29 14:14 | Outpatient (CLI) | payer MEDICARE, OTHER ==
--- NOTE | 2019-07-29 14:44 | RAD ---
EXAM: CHEST ONE VIEW HISTORY: Generalized weakness COMPARISON: 01/02/2017 FINDINGS: Cardiac silhouette is magnified by projection and stable in size. Pulmonary vasculature is within nor mal limits. The lungs are clear. Postoperative changes related to anterior cervical fusion lower cervical spine are again seen. Degenerative changes are again seen in the thoracic spine. IMPRESSION: No acute cardiopulmonary process.
== END 2019-07-29 14:15 | disposition home or self-care (01) ==
LOC: RAD-FRANK 14:14
PROVIDERS: ATTEND Nurse Practitioner Family
DX: R53.1 Weakness (principal)
CPT/HCPCS: 71045; 71046

== ENCOUNTER 2019-09-11 19:47 | Emergency (ER) | payer MEDICARE, OTHER ==
[2019-09-11 20:38] LABS: #Eosinphils 0.1 thou/uL (0.0-0.7); #Lymphocytes 1.4 thou/uL (1.20-3.40); #Monocytes 0.6 thou/uL (0.11-0.59); #Neutrophils 4.5 thou/uL (1.40-6.50); %Basophils 0.2 % (0.0-1.0); %Lymphocytes 21.4 % (21.0-51.0); %Monocytes 9.1 % (0.0-10.0); %Neutrophils 68.3 % (42.0-75.0); Hemoglobin 9.9 g/dL (12.0-16.0); Mean Corpuscular HGB CONC 32.5 g/dL (32.0-36.0); Mean Corpuscular Hemoglobin 32.1 pg (27.0-31.0); Mean Corpuscular Volume 98.8 fL (78.0-98.0); Mean Platelet Volume 6.6 fL (7.4-10.4); Platelet Count 291 thou/uL (130-400); RBC Distribution Width 11.6 % (11.5-14.5); Red Blood Cell (RBC) Count 3.08 mill/uL (4.20-5.40); White Blood Cell (WBC) Count 6.5 thou/uL (4.8-10.8)
[2019-09-11] MEDS ORDERED: diphenhydrAMINE 50 MG/ML VIAL ONE (20:44)
[2019-09-11] MEDS ORDERED: Ondansetron PF 4 MG/2 ML Vial ONE (20:44)
[2019-09-11] MEDS ORDERED: Metoclopramide HCl 10 MG/2 ML VIAL ONE (20:44)
[2019-09-11 21:03] LABS: ALT (SGPT) 9 U/L (8-55); AST (SGOT) 19 U/L (5-34); Albumin 3.3 g/dL (3.4-4.8); Alkaline Phosphatase 55 U/L (40-110); Anion Gap 15 mmol/L (10-20); BUN (Urea Nitrogen) 35 mg/dL (9.8-20.1); Bilirubin, Total 0.3 mg/dL (0.2-1.2); CK (CPK) 80 U/L (29-168); Calc. Creatinine Clearance 0 mL/min (70-130); Calcium 8.1 mg/dL (7.8-10.44); Carbon Dioxide 15 mmol/L (23-31); Chloride 113 mmol/L (98-107); Estimated GFR-MDRD 15; Globulin 2.1 g/dL (2.4-3.5); Glucose 101 mg/dL (83-110); Potassium 5.2 mmol/L (3.5-5.1); Protein, Total 5.4 g/dL (6.0-8.3); Sodium 138 mmol/L (136-145)
[2019-09-11 21:21] LABS: CKMB 2.1 ng/mL (0-6.6)
--- NOTE | 2019-09-11 21:32 | RAD ---
AP CHEST: 09/11/19 HISTORY: Dyspnea. COMPARISON: 06/27/16. Cardiomegaly again noted. Lungs show no evidence of infiltrate or vascular congestion. No edema or si gnificant effusion. No interval change noted. IMPRESSION: Cardiomegaly. No acute lung process or significant change. POS: [facility]
[2019-09-11 22:53] LABS: Bacteria/HPF 4+ HPF (None Seen); Bilirubin Negative (Negative); Blood, Urine Negative (Negative); Clarity Turbid (Clear); Glucose, Urine (Dipstick) Normal (Negative); Ketone, Urine Negative (Negative); Leukocyte 250 Leu/uL (Negative); Nitrite Negative (Negative); Protein, Urine (Dipstick) 300 mg/dL (Neg-Trace); RBC/HPF 0-3 HPF (0-3); Specific Gravity, Urine 1.015 (1.002-1.036); Squamous Epithelial None Seen HPF (0-3); Urobilinogen Normal mg/dL (Less than 2); WBC/HPF Greater than 50 HPF (0-3)
--- NOTE | 2019-09-11 23:01 | CT ---
CT HEAD WITHOUT CONTRAST: Date: 09/11/2019 INDICATION: Headache. Comparison made to head CT from 07/02/2018. That exam described an area of stippled calcifications pe ripheral right cerebellum which was indeterminate. A MRI was recommended from that study. There is no indication that MRI was performed. FINDINGS: The calcifications along the dural margin of the right cerebellum again seen. There has been no signi ficant interval change. This would indicate a benign process. There is mild cortical volume loss. There are mild to moderate chronic ischemic white matter changes which appear stable. There is no evidence of mass or edema. There is no evidence of hemorrhage. Sinuses and mastoids are c lear. IMPRESSION: No acute process. The previously questioned calcifications along the dural surface of the right cereb ellum appear stable. There are chronic ischemic changes which appear stable. POS: [facility]
== END 2019-09-11 23:24 | disposition home or self-care (01) ==
LOC: ERS 19:47
DX: N39.0 Urinary tract infection, site not specified (principal); E86.0 Dehydration
CPT/HCPCS: 36415; 51701; 70450; 71045; 80053; 81003; 81015; 82550; 82553; 84484; 85025; 87077; 87086; 87186; 93005; 96365; 96366; 96375; J1200; J2405; J2765

== ENCOUNTER 2019-09-18 08:38 | Inpatient (IN) | payer MEDICARE, OTHER ==
[2019-09-18] MEDS ORDERED: Acetaminophen 500 MG TAB ONE (09:03)
[2019-09-18 09:16] LABS: #Eosinphils 0.1 thou/uL (0.0-0.7); #Lymphocytes 1.4 thou/uL (1.20-3.40); #Monocytes 0.8 thou/uL (0.11-0.59); #Neutrophils 4.3 thou/uL (1.40-6.50); %Basophils 0.5 % (0.0-1.0); %Eosinophils 1.7 % (0.0-10.0); %Lymphocytes 20.6 % (21.0-51.0); %Monocytes 12.1 % (0.0-10.0); %Neutrophils 65.1 % (42.0-75.0); Hemoglobin 9.1 g/dL (12.0-16.0); Mean Corpuscular HGB CONC 31.8 g/dL (32.0-36.0); Mean Corpuscular Hemoglobin 30.7 pg (27.0-31.0); Mean Corpuscular Volume 96.7 fL (78.0-98.0); Mean Platelet Volume 6.3 fL (7.4-10.4); Platelet Count 290 thou/uL (130-400); RBC Distribution Width 11.7 % (11.5-14.5); Red Blood Cell (RBC) Count 2.96 mill/uL (4.20-5.40); White Blood Cell (WBC) Count 6.6 thou/uL (4.8-10.8)
--- NOTE | 2019-09-18 09:19 | RAD ---
XR Chest 1 View Portable HISTORY: Weakness COMPARISON: 09/11/2019 FINDINGS: Cardiomegaly is again seen. No lobar consolidation, pneumothoraces, cyn pulmonary edema l arge effusions are seen. There are postop changes in the lower cervical spine
[2019-09-18 09:45] LABS: ALT (SGPT) 7 U/L (8-55); AST (SGOT) 16 U/L (5-34); Albumin 3.2 g/dL (3.4-4.8); Alkaline Phosphatase 59 U/L (40-110); Anion Gap 12 mmol/L (10-20); BUN (Urea Nitrogen) 25 mg/dL (9.8-20.1); Bilirubin, Total 0.3 mg/dL (0.2-1.2); CK (CPK) 73 U/L (29-168); Calc. Creatinine Clearance 0 mL/min (70-130); Calcium 8.1 mg/dL (7.8-10.44); Carbon Dioxide 18 mmol/L (23-31); Chloride 105 mmol/L (98-107); Estimated GFR-MDRD 17; Globulin 2.5 g/dL (2.4-3.5); Glucose 89 mg/dL (83-110); Magnesium 2.6 mg/dL (1.6-2.6); Potassium 5.4 mmol/L (3.5-5.1); Protein, Total 5.7 g/dL (6.0-8.3); Sodium 130 mmol/L (136-145)
[2019-09-18 10:33] LABS: Bilirubin Negative (Negative); Blood, Urine Negative (Negative); Clarity Clear (Clear); Glucose, Urine (Dipstick) Normal (Negative); Ketone, Urine Negative (Negative); Leukocyte 75 Leu/uL (Negative); Nitrite Negative (Negative); Protein, Urine (Dipstick) 100 mg/dL (Neg-Trace); RBC/HPF 0-3 HPF (0-3); Specific Gravity, Urine 1.007 (1.002-1.036); Squamous Epithelial 0-3 HPF (0-3); Urobilinogen Normal mg/dL (Less than 2); WBC/HPF 21-50 HPF (0-3)
[2019-09-18 10:36] LABS: Bacteria/HPF Rare-Few HPF (None Seen)
[2019-09-18] MEDS ORDERED: MEROPENEM 1 GM/50 ML 1 GM in Premix Bag 1 BAG IVPB SCH (13:45)
--- NOTE | 2019-09-18 15:02 | PDOC.HHP ---
Hospitalist HPI - History of Present Illness Generalized weakness, lightheadedness, and blurry vision for the past week History of Present Illness: Marilynn Betancourt is a 79 yo female with a PMHx of dyslipidemia, HTN, and anemia of chronic kidney disease that presents to the ED with complaints of lightheadedness and blurry vision, as well as generalized weakness that has been present for the past month. Her weakness primarily in her lower extremities , but also in her upper extremities. She has used a walker for years, but over the last 4-5 days her lower extremity weakness has continued to get worse to the point where she can no longer walk around even with the assistance of her walker. This morning she fell on her buttocks in the bathroom, but did not hit her head or lose consciousness. She had difficulty getting up from her fall. She reports parasthesias/numbness in both lower extremities worst on her big toes that has been there after multiple back surgeries. She reports severe cramping pain in her legs that's worst at night and worsening back pain as well. SHe denies associated fevers, chills, cough, diarrhea. She denies tinnitus, ear fullness, hearing loss, dysphagia, dysarthria. Two weeks ago, she saw Dr. Baez who increased her hydralazine dose from 50 mg TID to 100mg TID. She also states her coreg was discontinued due to a low heart rate and she was taken off pravastatin. Her blood pressure prior to this was 200 systolic, but over the last few days her blood pressure has been 150 systolic. Previously she was experiencing severe headaches and nausea, but now she has been having persistent lightheadedness while ambulating, blurry vision and still has constant nausea not related to eating. She denies palpitations, SOB, abdominal pain, blood in her stools. Last week she presented to the ER with nausea and headache and was found to have a BP Of 170 systolic. She was diagnosed with E coli UTi, and has been taking augmentin and reports her last dose is tonight. She denies urinary frequency/urgency/dysuria. ED Course: She presented with normal vitals except for BP of 170 systolic. She was found to have sodium of 130, potassium 5.4, creatinine of 2.73. Chest X ray is normal. UA was unremakable, however patient was given meropenem based off her Klebsiella UTI on 09/10. The patient was administered IV fluids Hospitalist ROS - Review of Systems Constitutional: reports: weakness, malaise. denies: fever, chills, sweats, other Eyes: reports: vision change (blurry vision for the last month that has gotten worse). denies: pain, conjunctivae inflammation, eyelid inflammation, redness, other ENT: denies: ear pain, ear discharge, nose pain, nose discharge, nose congestion , mouth pain, mouth swelling, throat pain, throat swelling, other Respiratory: reports: shortness of breath (mild). denies: cough, dry, hemoptysis, SOB with excertion, pleuritic pain, sputum, wheezing, other Cardiovascular: reports: light headedness. denies: chest pain, palpitations, orthopnea, paroxysmal noc. dyspnea, edema, other Gastrointestinal: reports: nausea. denies: vomiting, abdominal pain, diarrhea, constipation, melena, hematochezia, other Genitourinary: reports: incontinence. denies: dysuria (she recently had a UTI, but reported no symptoms), frequency, hematuria, retention, other Musculoskeletal: reports: leg pain (bilateral leg pain with edematous skin), other. denies: neck pain, shoulder pain, arm pain, back pain, hand pain, foot pain (the only pain she reported was in her legs, generalized weakness over her entire body that was worse in her LE) Skin: reports: bruising. denies: rash, lesions, manuel, other Neurological: reports: weakness, numbness (medial aspect of both feet and medial 3 toes), change in speech (sometimes she has trouble getting out what she is trying to say). 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 Gastrointestinal: reports: no pertinent history Heme/Onc: reports: Other (anemia of chronic kidney disease, Hb = 9.1) Hepatobiliary: reports: no pertinent history Psych: reports: Anxiety, Depression Musculoskeletal: reports: Chronic low back pain, Osteoarthritis Rheumatologic: reports: no pertinent history Infectious Disease: reports: Other (recent UTI that was treated with augmentin) ENT: reports: no pertinent history Renal/: reports: Chronic renal failure Endocrine: reports: no pertinent history Dermatology: reports: no pertinent history - Past Surgical History Past Surgical History: reports: Appendectomy, Cholecystectomy, Hysterectomy ( partial), Total Hip Replacement (left side), Other (two back surgeries [id number] ) - Family History Family History: reports: cancer (lung cancer brother) - Social History Smoking Status: Never smoker Alcohol: reports: None Drugs: reports: none Living Situation: Alone Activity level: uses cane/walker - Exam General Appearance: awake alert (patient was in obvious distress) Eye: PERRL, anicteric sclera ENT: normocephalic atraumatic, no oropharyngeal lesions, moist mucosa ENT - other findings: significant wax bilateral easr Neck: supple, symmetric, no thyromegaly, no lymphadenopathy, no carotid bruit, JVD Heart: RRR, no murmur, no gallops, no rubs, normal peripheral pulses Respiratory: CTAB, no wheezes, no rales, no ronchi, normal chest expansion, no tachypnea, normal percussion Gastrointestinal: soft, non-tender, non-distended, normal bowel sounds, no palpable masses, no hepatomegaly, no splenomegaly, no bruit, no guarding, no rigidity Extremities: no clubbing, no edema Extremities - other findings: unable to relax left foot from dorsiflexed position Skin: normal turgor Skin - other findings: venous stasis changes in bilateral lower extremities Neurological: cranial nerve grossly intact. negative: facial droop, speech deficit, vision deficit Neurological - other findings: rigidity on right arm/right leg on passive ROm. Dec sens bilateral toes Musculoskeletal: generalized weakness Musculoskeletal - other findings: normal ROM of arms and legs. Tenderness palpations bilatera lshins Psychiatric: normal affect, normal behavior, A&O x 3 Hospitalist Results - Labs Result Diagrams: 09/18/19 09:01 09/18/19 09:01 Lab results: WBC 6.6 thou/uL (4.8-10.8) 09/18/19 09:01 Hgb 9.1 g/dL (12.0-16.0) L 09/18/19 09:01 Hct 28.7 % (36.0-47.0) L 09/18/19 09:01 MCV 96.7 fL (78.0-98.0) 09/18/19 09:01 Plt Count 290 thou/uL (130-400) 09/18/19 09:01 Neutrophils % 65.1 % (42.0-75.0) 09/18/19 09:01 Sodium 130 mmol/L (136-145) L 09/18/19 09:01 Potassium 5.4 mmol/L (3.5-5.1) H 09/18/19 09:01 Chloride 105 mmol/L (98-107) 09/18/19 09:01 Carbon Dioxide 18 mmol/L (23-31) L 09/18/19 09:01 BUN 25 mg/dL (9.8-20.1) H 09/18/19 09:01 Creatinine 2.73 mg/dL (0.6-1.1) H 09/18/19 09:01 Glucose 89 mg/dL (83-110) 09/18/19 09:01 Calcium 8.1 mg/dL (7.8-10.44) 09/18/19 09:01 Total Bilirubin 0.3 mg/dL (0.2-1.2) 09/18/19 09:01 AST 16 U/L (5-34) 09/18/19 09:01 ALT 7 U/L (8-55) L 09/18/19 09:01 Alkaline Phosphatase 59 U/L (40-110) 09/18/19 09:01 Creatine Kinase 73 U/L (29-168) 09/18/19 09:01 Troponin I 0.026 ng/mL (< 0.028) 09/18/19 09:01 Serum Total Protein 5.7 g/dL (6.0-8.3) L 09/18/19 09:01 Albumin 3.2 g/dL (3.4-4.8) L 09/18/19 09:01 Urine Ketones Negative mg/dL (Negative) 09/18/19 10:14 Urine Blood Negative (Negative) 09/18/19 10:14 Urine Nitrite Negative (Negative) 09/18/19 10:14 Ur Leukocyte Esterase 75 Sandra/uL (Negative) A 09/18/19 10:14 Urine RBC 0-3 HPF (0-3) 09/18/19 10:14 Urine WBC 21-50 HPF (0-3) A 09/18/19 10:14 Ur Squamous Epith Cells 0-3 HPF (0-3) 09/18/19 10:14 Urine Bacteria Rare-Few HPF (None Seen) 09/18/19 10:14 - Radiology Interpretation Chest x-ray Status: report reviewed by me Hospitalist H&P A/P - Problem (1) Weakness Code(s): R53.1 - WEAKNESS Status: Acute (2) Anemia of renal disease Code(s): D63.1 - ANEMIA IN CHRONIC KIDNEY DISEASE Status: Chronic (3) CKD (chronic kidney disease) stage 4, GFR 15-29 ml/min Code(s): N18.4 - CHRONIC KIDNEY DISEASE, STAGE 4 (SEVERE) Status: Chronic (4) Hypertension Code(s): I10 - ESSENTIAL (PRIMARY) HYPERTENSION Status: Chronic Qualifiers: (5) Lightheadedness Code(s): R42 - DIZZINESS AND GIDDINESS Status: Acute - Plan Plan: This is a 79 year old female with history of hypertension who presented with worsening weakness after recently increasing her hydralazine two weeks ago, with associated nausea/lightheadedness and blurry vision. She was found to have hyponatremia/hyperkalemia and NICKY and was admitted 1. Weakness and lightheadedness - possibly secondary to orthostatic hypotension versus dehydration/hyperkalemia vs neurologic etiology * check orthostatics * creatinine is increased to 2.73, so will start the patient on fluids * MRI of her lumbar spine to assess for possible anatomic causes of her LE weakness, MRI brain to rule out [employer]ERSON[employer]ELOPMENT M[employer]OR etiology * will consider discussing with Dr Mills regarding recent medication changes * consider neurology consult if weakness doesn't improve with hydration * check CK level/TSH/aldolase 2. NICKY on CKD * start fluids, creatinine 2.73 * trend BMP in the am * * 3. HTN - BP currently 160. - will hold antihypertensives for now 4. BLurry vision - possibly from dehydration - visual acuity was intact, will reassess in am 5. Hyperkalemia - potassium 5.4, will hydrate with fluids and repeat BMP - EKG unremarkable - repeat in the am 6. Anemia - Hb 9, check B12/folate/ TSH DVT prophylaxis: COde status: full code
[2019-09-18] MEDS ORDERED: Sodium Chloride 0.9% 1,000 ML IV SCH (15:30)
[2019-09-18] MEDS ORDERED: Acetaminophen 325 MG TAB PO PRN (15:41)
[2019-09-18 16:58] VITALS: BMI 33.4
[2019-09-18] MEDS ORDERED: Zolpidem Tartrate 5 MG TAB PO PRN (18:26)
[2019-09-18] MEDS: Gabapentin 100 MG CAP PO PRN (19:34)
[2019-09-18] MEDS ORDERED: Morphine 2 MG/ML VIAL SLOW IVP PRN (19:41)
[2019-09-18] MEDS: Carvedilol 6.25 MG TAB PO SCH (19:55)
[2019-09-18] MEDS: Famotidine/PF 20 mg/2ml Vial SLOW IVP SCH (19:55)
[2019-09-18] MEDS: Amoxicillin/Potassium Clav 875 MG TAB PO SCH (19:55)
[2019-09-18] MEDS: Oxybutynin 5 MG TAB PO SCH (19:55)
[2019-09-18] MEDS: Atorvastatin Calcium 10 MG TAB PO SCH (19:55)
[2019-09-18] MEDS: Bisacodyl 5 MG TAB PO PRN (20:45)
[2019-09-18] MEDS: traMADol HCl 50 MG TAB PO PRN (20:45)
[2019-09-19] MEDS: HYDROcodone/Acetaminophen 10/325 mg Tablet PO PRN (00:52)
[2019-09-19 05:37] LABS: #Eosinphils 0.1 thou/uL (0.0-0.7); #Lymphocytes 1.6 thou/uL (1.20-3.40); #Monocytes 0.8 thou/uL (0.11-0.59); #Neutrophils 3.2 thou/uL (1.40-6.50); %Basophils 0.5 % (0.0-1.0); %Eosinophils 2.2 % (0.0-10.0); %Lymphocytes 27.2 % (21.0-51.0); %Monocytes 13.6 % (0.0-10.0); %Neutrophils 56.6 % (42.0-75.0); Hemoglobin 8.8 g/dL (12.0-16.0); Mean Corpuscular Hemoglobin 31.7 pg (27.0-31.0); Mean Corpuscular Volume 99.3 fL (78.0-98.0); Mean Platelet Volume 6.4 fL (7.4-10.4); Platelet Count 238 thou/uL (130-400); RBC Distribution Width 11.9 % (11.5-14.5); Red Blood Cell (RBC) Count 2.76 mill/uL (4.20-5.40); White Blood Cell (WBC) Count 5.7 thou/uL (4.8-10.8)
[2019-09-19 06:00] LABS: Anion Gap 10 mmol/L (10-20); BUN (Urea Nitrogen) 25 mg/dL (9.8-20.1); CK (CPK) 63 U/L (29-168); Calc. Creatinine Clearance 26 mL/min (70-130); Calcium 7.9 mg/dL (7.8-10.44); Carbon Dioxide 20 mmol/L (23-31); Chloride 108 mmol/L (98-107); Estimated GFR-MDRD 18; Glucose 85 mg/dL (83-110); Potassium 5.7 mmol/L (3.5-5.1); Sodium 132 mmol/L (136-145)
[2019-09-19] MEDS ORDERED: hydrALAZINE 20 MG/ML VIAL SLOW IVP PRN (06:53)
[2019-09-19] MEDS ORDERED: Amlodipine 5 MG TAB PO SCH (09:00)
[2019-09-19] MEDS ORDERED: Carvedilol 6.25 MG TAB PO SCH ×2 (09:25→09:45)
[2019-09-19] MEDS: Aripiprazole 2 MG TAB PO SCH (09:45)
[2019-09-19] MEDS: Amoxicillin/Potassium Clav 875 MG TAB PO SCH (09:47)
[2019-09-19] MEDS: Cholecalciferol 1,000 UNITS (25 MCG) TAB PO SCH (09:47)
[2019-09-19] MEDS: Oxybutynin 5 MG TAB PO SCH ×2 (09:47→20:48)
[2019-09-19] MEDS: DULoxetine 60 MG CAP PO SCH ×2 (09:54→10:11)
[2019-09-19] MEDS: Aspirin Chewable 81 MG TAB PO SCH (09:55)
--- NOTE | 2019-09-19 10:44 | RAD ---
EXAM: 2 views of the right femur HISTORY: Leg pain COMPARISON: None FINDINGS: There is no evidence of acute fracture or dislocation. No soft tissue swelling is seen. No degenerative changes are seen in the hip. Vascular calcic lesions are seen. IMPRESSION: No evidence of acute osseous abnormality.
--- NOTE | 2019-09-19 10:45 | RAD ---
EXAM: 2 views of the right tibia/fibula HISTORY: Leg pain after fall COMPARISON: None FINDINGS: There is no evidence of acute fracture or dislocation. No soft tissue swelling is seen. Mil d medial femorotibial joint space narrowing and osteophyte formation is seen in the knee. No degenerative changes seen in the ankle. IMPRESSION: No evidence of acute osseous abnormality.
--- NOTE | 2019-09-19 10:47 | RAD ---
Exam: XR Hip Rt 2-3 View HISTORY: Pain in right hip after a fall. COMPARISON: 04/28/2015 FINDINGS: Osseous detail is limited involving the superior and inferior pubic rami on the right due to techniqu e of the examination overlying bowel. However, no definite fracture or dislocation is seen involving the right hip. Views of the right hip are unchanged compared to prior study. IMPRESSION: No acute osseous abnormality is identified.
--- NOTE | 2019-09-19 10:47 | RAD ---
EXAM: 2 views of the left tibia/fibula HISTORY: Leg pain after fall COMPARISON: None FINDINGS: There is no evidence of acute fracture or dislocation. Mild diffuse soft tissue swelling is seen. Moderate tricompartment minimal degenerative changes are seen in the knee. There appear to be loose intracapsular osseous bodies within the knee joint. Vascular calcifications are seen. IMPRESSION: No evidence of acute osseous abnormality.
--- NOTE | 2019-09-19 10:56 | PDOC.HOSPP ---
- Subjective Encounter Date: 09/19/19 Encounter Time: 09:00 Subjective: Ms Betancourt states that she is doing better today than she was yesterday. She slept well last night once she was given her pain meds. She reports that her dizziness has decreased, but her blurry vision has remained the same. Her weakness has improved She denies any N/V, loss of hearing or vision, headache, palpitations, or slurring speech. She has not yet gotten out of bed to try and walk around or go to the restroom. She was given kayexelate, has not had a bowel movement yet. Fluids stopped running at 3 am - Objective Vital Signs & Weight: Vital Signs (12 hours) Temp Pulse Resp BP BP BP BP 09/19/19 09:47 65 176/86 H 09/19/19 09:46 176/86 H 09/19/19 08:57 97.6 F 65 20 176/86 H 179/82 H 09/19/19 05:08 97.6 F 57 L 17 170/96 H 09/19/19 00:53 97.8 F 61 18 158/78 H Pulse Ox 09/19/19 09:47 09/19/19 09:46 09/19/19 08:57 95 09/19/19 05:08 94 L 09/19/19 00:53 96 Weight Weight 207 lb 3.752 oz I&O: 09/18/19 09/19/19 09/20/19 06:59 06:59 06:59 Intake Total 1260 Balance 1260 Result Diagrams: 09/19/19 05:13 09/19/19 11:44 Radiology Reviewed by me: Yes (No signs of fracture of either lower extremity/ hips) Hospitalist ROS - Review of Systems Constitutional: reports: weakness. denies: fever, chills, sweats, malaise Eyes: reports: vision change (blurry vision is the same as yesterday) Respiratory: denies: cough, dry, shortness of breath, hemoptysis, SOB with excertion, pleuritic pain, sputum, wheezing Cardiovascular: reports: light headedness. denies: chest pain, palpitations, orthopnea, paroxysmal noc. dyspnea, edema Gastrointestinal: denies: nausea, vomiting, abdominal pain, diarrhea, constipation, melena, hematochezia Musculoskeletal: reports: leg pain, foot pain (stiffness that hurts when manipulated) All other systems reviewed; all pertinent +/- noted in HPI/Subj - Medication Medications: Active Medications Generic Name Dose Route Start Last Admin Trade Name Freq PRN Reason Stop Dose Admin Acetaminophen 650 mg 09/18/19 15:41 09/18/19 19:34 Tylenol PO 650 mg Q4H PRN Administration Headache/Fever/Mild Pain (1-3) Hydrocodone Bitart/Acetaminophen 1 tab 09/18/19 21:41 09/19/19 00:52 [place] 10/325 PO 1 tab Q6H PRN Administration Severe Pain (7-10) Amlodipine Besylate 5 mg 09/19/19 09:00 09/19/19 09:47 Norvasc PO 5 mg QAM FLORI Administration Aripiprazole 2 mg 09/19/19 09:00 09/19/19 09:45 Abilify PO 2 mg QAM FLORI Administration Aspirin 81 mg 09/19/19 09:00 09/19/19 09:55 Aspirin Chewable PO 81 mg DAILY FLORI Administration Atorvastatin Calcium 10 mg 09/18/19 21:00 09/18/19 19:55 Lipitor PO 10 mg QPM FLORI Administration Bisacodyl 10 mg 09/18/19 17:53 09/18/19 20:45 Dulcolax PO 10 mg DAILYPRN PRN Administration Constipation Carvedilol 6.25 mg 09/19/19 09:45 09/19/19 09:46 Coreg PO 09/19/19 12:00 6.25 mg NOW FLORI Administration Cholecalciferol 2,000 units 09/19/19 09:00 09/19/19 09:47 Vitamin D3 PO 2,000 units DAILY FLORI Administration Duloxetine HCl 60 mg 09/19/19 09:00 09/19/19 10:11 Cymbalta PO Not Given QAM FLORI Famotidine 20 mg 09/18/19 21:00 09/18/19 19:55 Pepcid SLOW IVP 20 mg QPM FLORI Administration Gabapentin 100 mg 09/18/19 19:04 09/18/19 19:34 Neurontin PO 100 mg TID PRN Administration Pain Oxybutynin Chloride 5 mg 09/18/19 21:00 09/19/19 09:47 Ditropan PO 5 mg BID FLORI Administration Pantoprazole Sodium 40 mg 09/18/19 21:00 09/19/19 09:54 Protonix PO 40 mg BID FLORI Administration Sodium Chloride 10 ml 09/19/19 09:00 09/19/19 09:55 Flush - Normal Saline IVF 10 ml Q12HR FLORI Administration Tramadol HCl 50 mg 09/18/19 19:41 09/18/19 20:45 Ultram PO 50 mg Q6H PRN Administration Severe Pain (7-10) - Exam General Appearance: NAD, awake alert Eye: PERRL, anicteric sclera ENT: normocephalic atraumatic Neck: supple, symmetric, no thyromegaly, no carotid bruit, JVD Heart: RRR, no murmur, no gallops, no rubs, normal peripheral pulses Respiratory: CTAB, no wheezes, no rales, no ronchi, normal chest expansion, no tachypnea, normal percussion Gastrointestinal: soft, non-tender, non-distended, normal bowel sounds, no palpable masses, no hepatomegaly, no splenomegaly, no bruit Extremities: no cyanosis, no clubbing, no edema Skin: normal turgor, no lesions, no rashes Neurological: cranial nerve grossly intact, normal sensation to touch, no new deficit Neurological - other findings: no rigidity in arms or legs today Musculoskeletal: normal tone, normal strength, no muscle wasting Musculoskeletal - other findings: reports pain in her right thigh upon raising leg. Full ROM of both legs Psychiatric: normal affect, normal behavior, A&O x 3 Hosp A/P (1) Weakness Code(s): R53.1 - WEAKNESS Status: Acute (2) Anemia of renal disease Code(s): D63.1 - ANEMIA IN CHRONIC KIDNEY DISEASE Status: Chronic (3) CKD (chronic kidney disease) stage 4, GFR 15-29 ml/min Code(s): N18.4 - CHRONIC KIDNEY DISEASE, STAGE 4 (SEVERE) Status: Chronic (4) Hypertension Code(s): I10 - ESSENTIAL (PRIMARY) HYPERTENSION Status: Chronic Qualifiers: (5) Lightheadedness Code(s): R42 - DIZZINESS AND GIDDINESS Status: Acute - Plan This is a 79 year old female with history of hypertension who presented with worsening weakness after recently increasing her hydralazine two weeks ago, with associated nausea/lightheadedness and blurry vision. She was found to have hyponatremia/hyperkalemia and NICKY and was admitted 1. Weakness and lightheadedness - possibly metabolic from hyperkalemia/ dehydration vs COVID infection #COVID + * orthostatics unable to be done due to weakness standing up * creatinine improved to 2.6 after starting fluids * weakness has significantly improved. PT evaluation pending. COVID PCR positive * - CK level, B12/TSH normal, aldolase pending * 2. NICKY on CKD * creatinine mildly improved to 1.6 * trend BMP in the am 3. Hyponatremia - sodium 132, check serum and urine osmolarity 4. Hyperkalemia - potassium 5.4, given kayexelate. Repeat BMP after bowel movement 5. Blurry vision - visual acuity seems intact. POssibly metabolic 6. HTN - BP currently 170. Dr. Baez has resumed her blood pressure medicines 7. BLurry vision - possibly from dehydration - visual acuity was intact, will reassess in am 8. Macrocytic anemia - Hb 9, B12/folate/TSH normal
[2019-09-19] MEDS: Carvedilol 6.25 MG TAB PO SCH ×2 (11:55→20:48)
[2019-09-19 12:02] LABS: SARS-CoV-2 MS2 Positive; SARS-CoV-2 N Gene Positive; SARS-CoV-2 S Gene Positive; SARS-CoV-2 orf1ab Positive
[2019-09-19 12:03] LABS: SARS-CoV-2 by NAA DETECTED (NotDetected)
[2019-09-19 12:17] LABS: Anion Gap 10 mmol/L (10-20); BUN (Urea Nitrogen) 25 mg/dL (9.8-20.1); Calc. Creatinine Clearance 26 mL/min (70-130); Calcium 7.7 mg/dL (7.8-10.44); Carbon Dioxide 19 mmol/L (23-31); Chloride 108 mmol/L (98-107); Estimated GFR-MDRD 18; Glucose 84 mg/dL (83-110); Potassium 5.4 mmol/L (3.5-5.1); Sodium 132 mmol/L (136-145)
[2019-09-19] MEDS ORDERED: NIFEdipine XL 30 MG TAB PO SCH (14:45)
[2019-09-19] MEDS: hydrALAZINE 25 MG TAB PO SCH ×2 (14:55→20:48)
[2019-09-19] MEDS ORDERED: Polyethylene Glycol 3350 17 GM Packet PO SCH (16:00)
[2019-09-19 16:46] LABS: Anion Gap 11 mmol/L (10-20); BUN (Urea Nitrogen) 24 mg/dL (9.8-20.1); Calc. Creatinine Clearance 27 mL/min (70-130); Calcium 7.9 mg/dL (7.8-10.44); Carbon Dioxide 18 mmol/L (23-31); Chloride 107 mmol/L (98-107); Estimated GFR-MDRD 18; Glucose 91 mg/dL (83-110); Potassium 5.3 mmol/L (3.5-5.1); Sodium 131 mmol/L (136-145)
--- NOTE | 2019-09-19 18:58 | CON ---
DATE OF CONSULTATION: 09/19/2019 REASON FOR CONSULTATION: 1. [id number] hypertension, history of diastolic congestive heart failure, history of hypercholesterolemia, and history of renal insufficiency. 2. Hyperkalemia. 3. Positive for COVID infection. 4. History of edema. HISTORY OF PRESENT ILLNESS: Ms. Betancourt is a 79-year-old woman, who came to the hospital yesterday complaining of lack of energy, just generally not feeling well. No chest pain or pressure. She does felt weak and lightheaded and had blurred vision. The patient states that it is just a lack of energy. We have seen her in the office recently, we increased her hydralazine dose, cut the carvedilol dose due to relatively low heart rate. No chest pain. In the emergency room, it was found that her creatinine is up to 2.7, potassium is 5.4, sodium was 130. Her COVID nasal swab came back positive today. REVIEW OF SYSTEMS: Please see the review of systems documented in the chart by Dr. Agrawal. MEDICATIONS: Prior to admission, she was on; 1. Hydralazine, the dose had been increased to 50 mg three times a day. 2. Lasix 40 mg a day. 3. Losartan 100 mg a day. 4. Carvedilol 6.25 mg twice a day. 5. Gabapentin. PHYSICAL EXAMINATION: Documented in the chart. With current COVID outbreak, desire to reduce contact with COVID patient's and also preserve PPE. I did not repeat the physical examination, but I did review the findings in the chart, which indicated that the patient was mildly short of breath. Otherwise unremarkable. The patient's blood pressure has been very high 180/84 and pulse 59 and 62. LABORATORY DATA: EKG, sinus rhythm with a right bundle-branch block as previously noted. Pertinent laboratory, potassium was 5.4 and creatinine 2.6, it was 2.97 yesterday. LDL cholesterol most recently was 61. Chest x-ray, cardiomegaly. No consolidation. No definite infiltrates. ASSESSMENT: 1. Hypertension difficult to control. 2. Positive for COVID infection. 3. Renal failure stage 3, slightly worsened with a creatinine, slightly higher. 4. Hyperkalemia. PLAN: 1. We will go to Coreg 6.25 mg twice a day. 2. Resume hydralazine 50 mg three times a day. 3. Resume losartan 50 mg a day. She is on 100 at home. 4. Add Procardia XL. 5. Check a basic metabolic and BNP tomorrow. Attempted to call the patient's room, but she is unable to reach a phone. The nurse states the patient is doing adequately well. We will recheck with her tomorrow. Job ID: [id number]
[2019-09-19] MEDS: Famotidine/PF 20 mg/2ml Vial SLOW IVP SCH (20:48)
[2019-09-19] MEDS: Atorvastatin Calcium 10 MG TAB PO SCH (20:48)
[2019-09-19] MEDS: traMADol HCl 50 MG TAB PO PRN (20:48)
[2019-09-19] MEDS: Gabapentin 100 MG CAP PO PRN (21:05)
[2019-09-20] MEDS: Bisacodyl 5 MG TAB PO PRN (02:13)
[2019-09-20] MEDS ORDERED: Senokot 8.6 MG TAB PO PRN (02:31)
[2019-09-20] MEDS: HYDROcodone/Acetaminophen 10/325 mg Tablet PO PRN (03:36)
[2019-09-20 07:29] LABS: Anion Gap 11 mmol/L (10-20); BUN (Urea Nitrogen) 25 mg/dL (9.8-20.1); Calc. Creatinine Clearance 28 mL/min (70-130); Calcium 8.1 mg/dL (7.8-10.44); Carbon Dioxide 18 mmol/L (23-31); Chloride 106 mmol/L (98-107); Estimated GFR-MDRD 19; Glucose 93 mg/dL (83-110); Potassium 4.9 mmol/L (3.5-5.1); Sodium 130 mmol/L (136-145)
[2019-09-20] MEDS: Cholecalciferol 1,000 UNITS (25 MCG) TAB PO SCH (08:49)
[2019-09-20] MEDS: hydrALAZINE 25 MG TAB PO SCH ×3 (08:50→20:25)
[2019-09-20] MEDS: Aripiprazole 2 MG TAB PO SCH (08:50)
[2019-09-20] MEDS: Oxybutynin 5 MG TAB PO SCH ×2 (08:50→20:26)
[2019-09-20] MEDS: NIFEdipine XL 30 MG TAB PO SCH (08:50)
[2019-09-20] MEDS: Aspirin Chewable 81 MG TAB PO SCH (08:50)
[2019-09-20] MEDS: DULoxetine 60 MG CAP PO SCH (08:50)
[2019-09-20] MEDS: Carvedilol 6.25 MG TAB PO SCH ×2 (08:51→20:25)
[2019-09-20] MEDS ORDERED: Losartan 25 MG TAB PO SCH ×2 (09:00)
--- NOTE | 2019-09-20 19:01 | PDOC.HOSPP ---
- Subjective Encounter Date: 09/20/19 Encounter Time: 12:00 Subjective: The patient states she feels better today, but is still weak. She had not gotten out of bed yet at the time I had seen her. Discussed persistent rigidity in legs, possibly early Parkinson's disease? But discussed that weakness may be from COVID infection and electrolyte imbalance She denies nausea, states she has mild dizziness but not as bad - Objective Vital Signs & Weight: Vital Signs (12 hours) Temp Pulse Resp BP Pulse Ox 09/20/19 09:00 97.5 F L 75 16 155/75 H 97 Weight Weight 207 lb 3.752 oz I&O: 09/19/19 09/20/19 09/21/19 06:59 06:59 06:59 Intake Total 1260 1520 Output Total 1200 Balance 1260 320 Result Diagrams: 09/19/19 05:13 09/20/19 06:08 Hospitalist ROS - Review of Systems Constitutional: denies: fever, chills - Medication Medications: Active Medications Generic Name Dose Route Start Last Admin Trade Name Freq PRN Reason Stop Dose Admin Acetaminophen 650 mg 09/18/19 15:41 09/18/19 19:34 Tylenol PO 650 mg Q4H PRN Administration Headache/Fever/Mild Pain (1-3) Hydrocodone Bitart/Acetaminophen 1 tab 09/18/19 21:41 09/20/19 03:36 [place] 10/325 PO 1 tab Q6H PRN Administration Severe Pain (7-10) Aripiprazole 2 mg 09/19/19 09:00 09/20/19 08:50 Abilify PO 2 mg QAM FLORI Administration Aspirin 81 mg 09/19/19 09:00 09/20/19 08:50 Aspirin Chewable PO 81 mg DAILY FLORI Administration Atorvastatin Calcium 10 mg 09/18/19 21:00 09/19/19 20:48 Lipitor PO 10 mg QPM FLORI Administration Bisacodyl 10 mg 09/18/19 17:53 09/20/19 02:13 Dulcolax PO 10 mg DAILYPRN PRN Administration Constipation Carvedilol 6.25 mg 09/19/19 21:00 09/20/19 08:51 Coreg PO 6.25 mg BID FLORI Administration Cholecalciferol 2,000 units 09/19/19 09:00 09/20/19 08:49 Vitamin D3 PO 2,000 units DAILY FLORI Administration Duloxetine HCl 60 mg 09/19/19 09:00 09/20/19 08:50 Cymbalta PO 60 mg QAM FLORI Administration Famotidine 20 mg 09/18/19 21:00 09/19/19 20:48 Pepcid SLOW IVP 20 mg QPM FLORI Administration Gabapentin 100 mg 09/18/19 19:04 09/19/19 21:05 Neurontin PO 100 mg TID PRN Administration Pain Hydralazine HCl 10 mg 09/19/19 06:53 09/19/19 12:08 Apresoline SLOW IVP 10 mg Q4H PRN Administration SBP > 170 Hydralazine HCl 50 mg 09/19/19 15:00 09/20/19 08:50 Apresoline PO 50 mg TID FLORI Administration Nifedipine 30 mg 09/20/19 09:00 09/20/19 08:50 Procardia Xl PO 30 mg DAILY FLOIR Administration Oxybutynin Chloride 5 mg 09/18/19 21:00 09/20/19 08:50 Ditropan PO 5 mg BID FLORI Administration Pantoprazole Sodium 40 mg 09/18/19 21:00 09/20/19 08:50 Protonix PO 40 mg BID FLORI Administration Sodium Chloride 10 ml 09/19/19 09:00 09/20/19 08:52 Flush - Normal Saline IVF 10 ml Q12HR FLORI Administration Tramadol HCl 50 mg 09/18/19 19:41 09/19/19 20:48 Ultram PO 50 mg Q6H PRN Administration Severe Pain (7-10) - Exam General Appearance: NAD, awake alert Eye: PERRL, anicteric sclera ENT: normocephalic atraumatic, no oropharyngeal lesions Neck: no JVD Heart: RRR, no murmur, no gallops, no rubs Respiratory: CTAB, no wheezes, no rales, no ronchi Gastrointestinal: soft, non-tender, non-distended, normal bowel sounds Extremities: no cyanosis, no clubbing, no edema Skin: normal turgor, no lesions, no rashes Neurological: cranial nerve grossly intact, normal sensation to touch, no new deficit Neurological - other findings: 3/5 strength in lower extremities, 5/5 in upper extremities Musculoskeletal - other findings: right arms and bilateral legs noted to be rigid and painful with rotating Hosp A/P (1) Weakness Code(s): R53.1 - WEAKNESS Status: Acute (2) Anemia of renal disease Code(s): D63.1 - ANEMIA IN CHRONIC KIDNEY DISEASE Status: Chronic (3) CKD (chronic kidney disease) stage 4, GFR 15-29 ml/min Code(s): N18.4 - CHRONIC KIDNEY DISEASE, STAGE 4 (SEVERE) Status: Chronic (4) Hypertension Code(s): I10 - ESSENTIAL (PRIMARY) HYPERTENSION Status: Chronic Qualifiers: (5) Lightheadedness Code(s): R42 - DIZZINESS AND GIDDINESS Status: Acute - Plan This is a 79 year old female with history of hypertension who presented with worsening weakness after recently increasing her hydralazine two weeks ago, with associated nausea/lightheadedness and blurry vision. She was found to have hyponatremia/hyperkalemia and NICKY and was admitted 1. Weakness and lightheadedness - possibly metabolic from hyperkalemia/ dehydration vs COVID infection #COVID + * orthostatics unable to be done due to weakness standing up * creatinine improved to 2.6 after starting fluids. Held further fluids due to hypertension * weakness has significantly improved. PT recommended rehab. * - COVID PCR positive, not started on steroids since no respiratory symptoms * CK level, B12/TSH normal, aldolase pending * 2. NICKY on CKD * creatinine mildly improved to 2.45, will continue to monito * trend BMP in the am 3. Hyponatremia - serum osmolarity was normal, urine osmolarity normal but possibly could have been confounded by IV fluid admin - will trial of fluid restriction 1l 4. HTN - BP currently 170. Dr. aBez has resumed her blood pressure medicines. BP is 130-150 5. Hyperkalemia- resolved 6. Blurry vision - resolved 7 Macrocytic anemia - Hb 9, B12/folate/TSH normal Dispo: monitor BMP, if stable, can send to rehab
[2019-09-20] MEDS: Famotidine/PF 20 mg/2ml Vial SLOW IVP SCH (20:25)
[2019-09-20] MEDS: Atorvastatin Calcium 10 MG TAB PO SCH (20:26)
[2019-09-21] MEDS: traMADol HCl 50 MG TAB PO PRN ×2 (01:05→17:25)
[2019-09-21] MEDS: HYDROcodone/Acetaminophen 10/325 mg Tablet PO PRN (03:44)
[2019-09-21] MEDS: Aripiprazole 2 MG TAB PO SCH (08:15)
[2019-09-21] MEDS: Carvedilol 6.25 MG TAB PO SCH ×2 (08:15→21:07)
[2019-09-21] MEDS: Aspirin Chewable 81 MG TAB PO SCH (08:15)
[2019-09-21] MEDS: Oxybutynin 5 MG TAB PO SCH ×2 (08:15→21:07)
[2019-09-21] MEDS: hydrALAZINE 25 MG TAB PO SCH ×3 (08:15→21:07)
[2019-09-21] MEDS: Cholecalciferol 1,000 UNITS (25 MCG) TAB PO SCH (08:15)
[2019-09-21] MEDS: DULoxetine 60 MG CAP PO SCH (08:15)
[2019-09-21] MEDS: NIFEdipine XL 30 MG TAB PO SCH (08:16)
--- NOTE | 2019-09-21 12:07 | PDOC.HOSPP ---
- Subjective Encounter Date: 09/21/19 Encounter Time: 12:05 Subjective: various aches/pains - Objective Vital Signs & Weight: Vital Signs (12 hours) Temp Pulse Resp BP Pulse Ox 09/21/19 09:00 97.4 F L 70 20 155/78 H 94 L 09/21/19 05:00 97.5 F L 76 19 155/78 H 95 09/21/19 01:00 98.6 F 78 19 158/62 H 96 Weight Weight 207 lb I&O: 09/20/19 09/21/19 09/22/19 06:59 06:59 06:59 Intake Total 1520 Output Total 1200 Balance 320 Result Diagrams: 09/19/19 05:13 09/20/19 06:08 Hospitalist ROS - Medication Medications: Active Medications Generic Name Dose Route Start Last Admin Trade Name Freq PRN Reason Stop Dose Admin Acetaminophen 650 mg 09/18/19 15:41 09/18/19 19:34 Tylenol PO 650 mg Q4H PRN Administration Headache/Fever/Mild Pain (1-3) Hydrocodone Bitart/Acetaminophen 1 tab 09/18/19 21:41 09/21/19 03:44 [place] 10/325 PO 1 tab Q6H PRN Administration Severe Pain (7-10) Aripiprazole 2 mg 09/19/19 09:00 09/21/19 08:15 Abilify PO 2 mg QAM FLORI Administration Aspirin 81 mg 09/19/19 09:00 09/21/19 08:15 Aspirin Chewable PO 81 mg DAILY FLORI Administration Atorvastatin Calcium 10 mg 09/18/19 21:00 09/20/19 20:26 Lipitor PO 10 mg QPM FLORI Administration Bisacodyl 10 mg 09/18/19 17:53 09/20/19 02:13 Dulcolax PO 10 mg DAILYPRN PRN Administration Constipation Carvedilol 6.25 mg 09/19/19 21:00 09/21/19 08:15 Coreg PO 6.25 mg BID FLORI Administration Cholecalciferol 2,000 units 09/19/19 09:00 09/21/19 08:15 Vitamin D3 PO 2,000 units DAILY FLORI Administration Duloxetine HCl 60 mg 09/19/19 09:00 09/21/19 08:15 Cymbalta PO 60 mg QAM FLORI Administration Famotidine 20 mg 09/18/19 21:00 09/20/19 20:25 Pepcid SLOW IVP 20 mg QPM FLORI Administration Gabapentin 100 mg 09/18/19 19:04 09/19/19 21:05 Neurontin PO 100 mg TID PRN Administration Pain Hydralazine HCl 10 mg 09/19/19 06:53 09/19/19 12:08 Apresoline SLOW IVP 10 mg Q4H PRN Administration SBP > 170 Hydralazine HCl 50 mg 09/19/19 15:00 09/21/19 08:15 Apresoline PO 50 mg TID FLORI Administration Nifedipine 30 mg 09/20/19 09:00 09/21/19 08:16 Procardia Xl PO 30 mg DAILY FLORI Administration Oxybutynin Chloride 5 mg 09/18/19 21:00 09/21/19 08:15 Ditropan PO 5 mg BID FLORI Administration Pantoprazole Sodium 40 mg 09/18/19 21:00 09/21/19 08:15 Protonix PO 40 mg BID FLORI Administration Sodium Chloride 10 ml 09/19/19 09:00 09/21/19 08:16 Flush - Normal Saline IVF 10 ml Q12HR FLORI Administration Tramadol HCl 50 mg 09/18/19 19:41 09/21/19 01:05 Ultram PO 50 mg Q6H PRN Administration Severe Pain (7-10) - Exam General Appearance: awake alert Neck: no JVD Heart: RRR, no murmur Respiratory: CTAB Gastrointestinal: soft, normal bowel sounds Extremities: no edema Hosp A/P (1) COVID-19 Code(s): U07.1 - COVID-19 Status: Acute (2) Anemia of renal disease Code(s): D63.1 - ANEMIA IN CHRONIC KIDNEY DISEASE Status: Chronic (3) Back pain Code(s): M54.9 - DORSALGIA, UNSPECIFIED Status: Chronic Qualifiers: Back pain location: back pain in unspecified location Back pain laterality : unspecified (4) CKD (chronic kidney disease) stage 4, GFR 15-29 ml/min Code(s): N18.4 - CHRONIC KIDNEY DISEASE, STAGE 4 (SEVERE) Status: Chronic (5) Chronic pain disorder Code(s): G89.4 - CHRONIC PAIN SYNDROME Status: Chronic (6) Dyslipidemia Code(s): E78.5 - HYPERLIPIDEMIA, UNSPECIFIED Status: Chronic (7) Hypertension Code(s): I10 - ESSENTIAL (PRIMARY) HYPERTENSION Status: Chronic Qualifiers: Hypertension type: essential hypertension - Plan cont current care placement pending
[2019-09-21] MEDS: Famotidine/PF 20 mg/2ml Vial SLOW IVP SCH (21:06)
[2019-09-21] MEDS: Atorvastatin Calcium 10 MG TAB PO SCH (21:07)
[2019-09-22] MEDS: Cholecalciferol 1,000 UNITS (25 MCG) TAB PO SCH (07:47)
[2019-09-22] MEDS: Oxybutynin 5 MG TAB PO SCH (07:47)
[2019-09-22] MEDS: Carvedilol 6.25 MG TAB PO SCH (07:48)
[2019-09-22] MEDS: DULoxetine 60 MG CAP PO SCH (07:48)
[2019-09-22] MEDS: hydrALAZINE 25 MG TAB PO SCH ×2 (07:48→15:47)
[2019-09-22] MEDS: traMADol HCl 50 MG TAB PO PRN (07:48)
[2019-09-22] MEDS: Aspirin Chewable 81 MG TAB PO SCH (07:48)
[2019-09-22] MEDS: Aripiprazole 2 MG TAB PO SCH (07:48)
[2019-09-22] MEDS: NIFEdipine XL 30 MG TAB PO SCH (07:48)
--- NOTE | 2019-09-22 09:46 | PDOC.HOSPP ---
- Subjective Encounter Date: 09/22/19 Encounter Time: 09:35 Subjective: f/u for COVID-19 viral infection awaiting swing bed placement. c/o pain from hips down, hurts to move. Working with PT minimally. - Objective Vital Signs & Weight: Vital Signs (12 hours) Temp Pulse Resp BP Pulse Ox 09/22/19 08:12 97 09/22/19 07:45 98.2 F 65 20 170/72 H 97 09/22/19 04:23 98.3 F 88 19 170/77 H 97 09/22/19 01:00 98.3 F 70 19 162/76 H 96 Weight Weight 207 lb Result Diagrams: 09/19/19 05:13 09/20/19 06:08 Additional Labs: Laboratory Tests 09/18/19 09/18/19 09/19/19 09:01 13:40 05:13 Hgb 9.1 L D-Dimer Sodium 132 L Potassium 5.7 H BUN 25 H Creatinine 2.60 H Vitamin B12 Folate TSH 3rd Generation COVID-19 PCR DETECTED A* 09/19/19 09/19/19 09/19/19 05:13 05:13 05:13 Hgb D-Dimer Sodium Potassium BUN Creatinine Vitamin B12 829 Folate 8.20 TSH 3rd Generation [id number] COVID-19 PCR 09/21/19 12:56 Hgb D-Dimer 1.28 H Sodium Potassium BUN Creatinine Vitamin B12 Folate TSH 3rd Generation COVID-19 PCR Hospitalist ROS - Medication Medications: Active Medications Generic Name Dose Route Start Last Admin Trade Name Freq PRN Reason Stop Dose Admin Acetaminophen 650 mg 09/18/19 15:41 09/18/19 19:34 Tylenol PO 650 mg Q4H PRN Administration Headache/Fever/Mild Pain (1-3) Hydrocodone Bitart/Acetaminophen 1 tab 09/18/19 21:41 09/21/19 03:44 [place] 10/325 PO 1 tab Q6H PRN Administration Severe Pain (7-10) Aripiprazole 2 mg 09/19/19 09:00 09/22/19 07:48 Abilify PO 2 mg QAM FLORI Administration Aspirin 81 mg 09/19/19 09:00 09/22/19 07:48 Aspirin Chewable PO 81 mg DAILY FLORI Administration Atorvastatin Calcium 10 mg 09/18/19 21:00 09/21/19 21:07 Lipitor PO 10 mg QPM FLORI Administration Bisacodyl 10 mg 09/18/19 17:53 09/20/19 02:13 Dulcolax PO 10 mg DAILYPRN PRN Administration Constipation Carvedilol 6.25 mg 09/19/19 21:00 09/22/19 07:48 Coreg PO 6.25 mg BID FLORI Administration Cholecalciferol 2,000 units 09/19/19 09:00 09/22/19 07:47 Vitamin D3 PO 2,000 units DAILY FLORI Administration Duloxetine HCl 60 mg 09/19/19 09:00 09/22/19 07:48 Cymbalta PO 60 mg QAM FLORI Administration Famotidine 20 mg 09/18/19 21:00 09/21/19 21:06 Pepcid SLOW IVP 20 mg QPM FLORI Administration Gabapentin 100 mg 09/18/19 19:04 09/19/19 21:05 Neurontin PO 100 mg TID PRN Administration Pain Hydralazine HCl 10 mg 09/19/19 06:53 09/19/19 12:08 Apresoline SLOW IVP 10 mg Q4H PRN Administration SBP > 170 Hydralazine HCl 50 mg 09/19/19 15:00 09/22/19 07:48 Apresoline PO 50 mg TID FLORI Administration Nifedipine 30 mg 09/20/19 09:00 09/22/19 07:48 Procardia Xl PO 30 mg DAILY FLORI Administration Oxybutynin Chloride 5 mg 09/18/19 21:00 09/22/19 07:47 Ditropan PO 5 mg BID FLORI Administration Pantoprazole Sodium 40 mg 09/18/19 21:00 09/22/19 07:48 Protonix PO 40 mg BID FLORI Administration Sodium Chloride 10 ml 09/19/19 09:00 09/22/19 07:50 Flush - Normal Saline IVF 10 ml Q12HR FLORI Administration Tramadol HCl 50 mg 09/18/19 19:41 09/22/19 07:48 Ultram PO 50 mg Q6H PRN Administration Severe Pain (7-10) - Exam General Appearance: NAD, awake alert Eye: PERRL, anicteric sclera ENT: normocephalic atraumatic, no oropharyngeal lesions Neck: supple, symmetric, no JVD, no thyromegaly, no lymphadenopathy Heart: RRR, no gallops, no rubs, normal peripheral pulses Heart - other findings: S1, S2 Respiratory: CTAB, no wheezes, no rales Respiratory - other findings: occasional rhonchi Gastrointestinal: soft, non-tender, non-distended, normal bowel sounds, no palpable masses Extremities: no cyanosis, no clubbing, no edema Skin: normal turgor, no lesions Neurological: cranial nerve grossly intact, no new deficit Musculoskeletal: normal tone, generalized weakness Psychiatric: normal affect, A&O x 3 Hosp A/P (1) COVID-19 Code(s): U07.1 - COVID-19 Status: Acute Plan: Supportive mgmt, no O2 requirement currently, isolation protocol (2) Weakness Code(s): R53.1 - WEAKNESS Status: Chronic Plan: PT for mobilization, fall risk precautions, Swing bed pending (3) Back pain Code(s): M54.9 - DORSALGIA, UNSPECIFIED Status: Chronic Qualifiers: Back pain location: back pain in unspecified location Back pain laterality : unspecified Plan: Pain control, SSRI, Gabapentin, PT for mobilization (4) CKD (chronic kidney disease) stage 4, GFR 15-29 ml/min Code(s): N18.4 - CHRONIC KIDNEY DISEASE, STAGE 4 (SEVERE) Status: Chronic Plan: Avoid nephrotoxic meds and limit contrast exposure (5) Chronic pain disorder Code(s): G89.4 - CHRONIC PAIN SYNDROME Status: Chronic (6) Hypertension Code(s): I10 - ESSENTIAL (PRIMARY) HYPERTENSION Status: Chronic Qualifiers: Hypertension type: essential hypertension Plan: Labile, continue current BP regimen - Plan PT/OT, social services technician, out of bed/ambulate, DVT proph w/SCDs Stable currently Continue general supportive mgmt Isolation protocol OOB with PT Change Gabapentin 300mg HS Pain control as clinically indicated Await approval for Swing Bed
[2019-09-22] MEDS: HYDROcodone/Acetaminophen 10/325 mg Tablet PO PRN ×2 (09:54→15:59)
[2019-09-22] MEDS: Gabapentin 100 MG CAP PO PRN (09:54)
[2019-09-22 15:48] VITALS: BP 178/83
[2019-09-22 15:59] VITALS: TEMP 98
[2019-09-22] MEDS ORDERED: Gabapentin 300 MG CAP PO SCH (21:00)
[2019-09-22] MEDS ORDERED: Melatonin 3 MG TAB PO SCH (21:00)
[2019-09-23] MEDS ORDERED: Non-Formulary Item 1 EACH (Fluoxetine Hcl [Fluoxetine Hcl] 40 MG) PO SCH (09:00)
[2019-09-23] MEDS ORDERED: Non-Formulary Item 1 EACH (Ferrous Sulfate [Iron] 325 MG) PO SCH (09:00)
[2019-09-23] MEDS ORDERED: Ferrous Sulfate 325 MG TAB PO SCH (09:00)
[2019-09-23] MEDS ORDERED: FLUoxetine HCl 20 MG CAP PO SCH (09:00)
--- NOTE | 2019-09-23 09:04 | DIS ---
DATE OF ADMISSION: 09/21/2019 DATE OF DISCHARGE: 09/22/2019 DISCHARGE DIAGNOSES: 1. COVID-19 PCR positive. 2. Generalized weakness, multifactorial. 3. Chronic back pain. 4. Chronic kidney disease, stage 4. 5. Chronic pain disorder. 6. Hypertension, labile. CONSULTATIONS: Dr. Baez with Cardiology Service. PERTINENT LABORATORY AND X-RAY FINDINGS: Sodium ranged between 130 to 132, potassium ranged between 4.9 to 5.7, creatinine ranged between 2.46 to 2.73. Magnesium level 2.6. BNP 132. CRP 0.88, ferritin 305. Folic acid level 8.20. Vitamin B12 level 829. TSH 1.59. CBC showed hemoglobin ranging between 8.8 to 9.1. D-dimer 1.28. COVID-19 PCR positive on 09/18/2019. Portable chest x-ray dated 09/18/2019, showed no acute infiltrate. Chronic changes noted. Two views of the right hip dated 09/19/2019, showed no acute process. Two views of the left tibia and fibula showed no acute process. Two views of the right tibia and fibula dated 09/19/2019, showed no acute process. Two views of the right femur dated 09/19/2019, negative. HOSPITAL COURSE: The patient was initially admitted after presenting with generalized weakness, dizziness, blurry vision, and lightheadedness. The patient underwent extensive evaluation including multiple imaging modalities showing no acute infiltrate. The patient underwent baseline screening COVID-19 PCR, which was positive at the time of admission. The patient without prominent respiratory symptoms or oxygen requirement at the time of admission. The patient received general supportive management throughout the hospital course including IV fluids and adjustments to her chronic blood pressure regimen including decreased hydralazine dosing. The patient continued on IV fluids with overall improvement in creatinine during the hospital course with additional avoidance of nephrotoxic agents. The patient was also treated for mild hyperkalemia with overall improving potassium levels with IV fluid hydration. The patient was placed on respiratory isolation due to the COVID-19 PCR positivity, however, the patient did not require oxygen during her hospital stay. Due to the patient's overall comorbid conditions, deconditioning, and chronic pain syndrome, the patient was deemed an appropriate candidate for ongoing care at [facility]. The patient has been approved and will transfer on 09/22/2019. I examined the patient at the time of discharge and discussed followup instructions. The patient verbalized understanding and in agreement and ready for discharge on 09/22/2019. DISCHARGE MEDICATIONS: 1. Ferrous sulfate 325 mg p.o. daily. 2. Fluoxetine 40 mg p.o. daily. 3. Gabapentin 300 mg p.o. at bedtime. 4. Lorazepam 1 mg p.o. at bedtime p.r.n. 5. Cozaar 100 mg p.o. daily. 6. Melatonin 3 mg p.o. at bedtime. 7. Nifedipine extended release 30 mg p.o. daily. 8. Trazodone 50 mg p.o. at bedtime. 9. Vitamin D3 2000 units p.o. daily. 10. Hydralazine 50 mg p.o. t.i.d. FOLLOWUP: The patient may follow up with her primary care provider, Lilly Jeffrey, after discharge. CONDITION ON DISCHARGE: Stable. ACTIVITY: Ad-dillan, rolling walker with contact guard assistance with high fall risk precautions. DIET: Heart healthy with 1800 mL per 24-hour fluid restriction. SPECIAL INSTRUCTIONS: Recommend ongoing physical and occupational therapy. CODE STATUS: Full. DISPOSITION: Discharged to [facility] on 09/22/2019. TIME SPENT: Total time preparing and coordinating discharge is 34 minutes. Job ID: [id number]
== END 2019-09-22 18:56 | disposition swing bed (61) | DRG 682 ==
LOC: ERS 08:38 → T4-B 13:22 → OBSVTOIN 09-21 21:13
PROVIDERS: ADMIT Internal Medicine; ATTEND Internal Medicine
PROC: 8E0ZXY6 Isolation (ICD-10-PCS; principal; 2019-09-21)
DX: N17.9 Acute kidney failure, unspecified (principal); U07.1 COVID-19; E87.1 Hypo-osmolality and hyponatremia; I13.0 Hypertensive heart and chronic kidney disease with heart failure and stage 1 through stage 4 chronic kidney disease, or unspecified chronic kidney disease; I50.32 Chronic diastolic (congestive) heart failure; E78.5 Hyperlipidemia, unspecified; N18.4 Chronic kidney disease, stage 4 (severe); D63.1 Anemia in chronic kidney disease; Z96.642 Presence of left artificial hip joint; G89.4 Chronic pain syndrome; E87.5 Hyperkalemia; E78.00 Pure hypercholesterolemia, unspecified; Z79.899 Other long term (current) drug therapy; Z79.82 Long term (current) use of aspirin; Z90.49 Acquired absence of other specified parts of digestive tract; Z90.710 Acquired absence of both cervix and uterus; Z88.1 Allergy status to other antibiotic agents; Z88.8 Allergy status to other drugs, medicaments and biological substances; Z88.5 Allergy status to narcotic agent
CPT/HCPCS: 36415; 36600; 71045; 80048; 80053; 81003; 81015; 82085; 82550; 82607; 82728; 82746; 83735; 83880; 83930; 83935; 84443; 84484; 85025; 86140; 87635; 93005; 96361; 96374; 96375; 96376; G0378; J0360; J2185; S0028; U0003

== ENCOUNTER 2020-03-22 15:35 | Inpatient (IN) | payer MEDICARE, OTHER ==
[2020-03-22 16:07] LABS: #Basophils 0.1 thou/uL (0.0-0.2); #Eosinphils 0.5 thou/uL (0.0-0.7); #Monocytes 0.6 thou/uL (0.11-0.59); #Neutrophils 3.1 thou/uL (1.40-6.50); %Basophils 1.6 % (0.0-1.0); %Eosinophils 8.6 % (0.0-10.0); %Lymphocytes 31.8 % (21.0-51.0); Hemoglobin 11.8 g/dL (12.0-16.0); Mean Corpuscular HGB CONC 32.1 g/dL (32.0-36.0); Mean Corpuscular Hemoglobin 30.3 pg (27.0-31.0); Mean Corpuscular Volume 94.4 fL (78.0-98.0); Mean Platelet Volume 6.5 fL (7.4-10.4); Platelet Count 248 thou/uL (130-400); RBC Distribution Width 14.7 % (11.5-14.5); Red Blood Cell (RBC) Count 3.88 mill/uL (4.20-5.40); White Blood Cell (WBC) Count 6.3 thou/uL (4.8-10.8)
[2020-03-22 16:27] LABS: ALT (SGPT) 7 U/L (8-55); AST (SGOT) 16 U/L (5-34); Albumin 3.3 g/dL (3.4-4.8); Alkaline Phosphatase 72 U/L (40-110); Anion Gap 17 mmol/L (10-20); BUN (Urea Nitrogen) 56 mg/dL (9.8-20.1); Bilirubin, Total 0.2 mg/dL (0.2-1.2); Calc. Creatinine Clearance 0 mL/min (70-130); Calcium 8.7 mg/dL (7.8-10.44); Carbon Dioxide 16 mmol/L (23-31); Chloride 111 mmol/L (98-107); Globulin 3.1 g/dL (2.4-3.5); Glucose 103 mg/dL (83-110); Potassium 4.7 mmol/L (3.5-5.1); Protein, Total 6.4 g/dL (5.8-8.1); Sodium 139 mmol/L (136-145)
[2020-03-22 16:49] LABS: CKMB 2.6 ng/mL (0-6.6)
[2020-03-22] MEDS ORDERED: Labetalol HCl 100 MG/20 ML VIAL ONE (17:46)
[2020-03-22 20:28] LABS: Troponin I 0.039 ng/mL (< 0.028)
[2020-03-22] MEDS ORDERED: Labetalol HCl 100 MG/20 ML VIAL SLOW IVP SCH (22:00)
[2020-03-22] MEDS: Labetalol HCl 100 MG/20 ML VIAL SLOW IVP SCH (23:00)
[2020-03-22] MEDS: Acetaminophen 325 MG TAB PO PRN (23:18)
[2020-03-22] MEDS: traZODone HCl 50 MG TAB PO PRN (23:19)
[2020-03-22] MEDS: Melatonin 3 MG TAB PO PRN (23:19)
[2020-03-22 23:43] LABS: Troponin I 0.034 ng/mL (< 0.028)
[2020-03-23] MEDS ORDERED: Labetalol HCl 100 MG/20 ML VIAL SLOW IVP PRN ×2 (02:16→04:38)
[2020-03-23] MEDS ORDERED: Acetaminophen 325 MG TAB PO PRN (02:16)
[2020-03-23] MEDS ORDERED: Promethazine HCl 12.5 MG in Sodium Chloride 0.9% 50 ML IVPB PRN (02:16)
[2020-03-23] MEDS ORDERED: Ondansetron PF 4 MG/2 ML Vial IVP PRN (02:16)
[2020-03-23] MEDS: Labetalol HCl 100 MG/20 ML VIAL SLOW IVP SCH (04:10)
[2020-03-23 05:04] LABS: #Basophils 0.1 thou/uL (0.0-0.2); #Eosinphils 0.5 thou/uL (0.0-0.7); #Lymphocytes 2.1 thou/uL (1.20-3.40); #Monocytes 0.4 thou/uL (0.11-0.59); #Neutrophils 2.6 thou/uL (1.40-6.50); %Eosinophils 8.7 % (0.0-10.0); %Lymphocytes 36.8 % (21.0-51.0); %Monocytes 7.8 % (0.0-10.0); %Neutrophils 45.7 % (42.0-75.0); Mean Corpuscular HGB CONC 32.2 g/dL (32.0-36.0); Mean Corpuscular Hemoglobin 30.6 pg (27.0-31.0); Mean Corpuscular Volume 95.1 fL (78.0-98.0); Mean Platelet Volume 6.6 fL (7.4-10.4); Platelet Count 241 thou/uL (130-400); RBC Distribution Width 14.5 % (11.5-14.5); Red Blood Cell (RBC) Count 3.58 mill/uL (4.20-5.40); White Blood Cell (WBC) Count 5.6 thou/uL (4.8-10.8)
[2020-03-23 05:37] LABS: Anion Gap 15 mmol/L (10-20); BUN (Urea Nitrogen) 55 mg/dL (9.8-20.1); Calc. Creatinine Clearance 12 mL/min (70-130); Calcium 8.6 mg/dL (7.8-10.44); Carbon Dioxide 15 mmol/L (23-31); Chloride 111 mmol/L (98-107); Glucose 97 mg/dL (83-110); Magnesium 2.5 mg/dL (1.6-2.6); Potassium 4.8 mmol/L (3.5-5.1); Sodium 136 mmol/L (136-145)
[2020-03-23 05:51] LABS: Hep C IgG Ab Non-Reactive (NonReactive)
[2020-03-23 07:19] LABS: SARS-CoV-2 PCR by NAA Not Detected (NotDetected)
--- NOTE | 2020-03-23 08:34 | PDOC.HHP ---
Hospitalist HPI sent by checker loader History of Present Illness: Caseof an 79y/o female with a pmhx of htn, ckd, hld and chronic back pain who comes to hospital sent by neurologist due to worsening renal function. patient states she had some f/u labs done, which showed worsen renal function and her dr sent her to hospital due to renal failure, for possible H/D. she complains of general malaise and general weakness but denies any chest pain palpitation sob fever chills cough or dysuria. patient refers she has noted increased b/l leg swelling for the last couple of weeks Allergies/Adverse Reactions: Allergy/AdvReac Type Severity Reaction Status Date / Time ketorolac [From Toradol] Allergy Unknown Anaphylaxis Verified 03/22/20 23:44 butorphanol tartrate AdvReac Unknown Swelling Verified 03/22/20 23:44 [From Stadol] ceftriaxone sodium AdvReac Unknown Verified 03/22/20 23:44 [From Rocephin] vancomycin AdvReac Verified 03/22/20 23:44 Home Medications: Medication Instructions Recorded Confirmed Type Melatonin 3 mg PO HS PRN 09/19/19 03/22/20 History hydrALAZINE [Apresoline] 50 mg PO TID tab 09/22/19 03/22/20 Rx FLUoxetine HCl [Fluoxetine HCl] 40 mg PO DAILY #30 capsule 11/29/19 03/22/20 Rx Ferrous Sulfate [Iron] 325 mg PO DAILY #90 tablet 11/29/19 03/22/20 Rx Gabapentin 300 mg PO HS #30 capsule 11/29/19 03/22/20 Rx NIFEdipine [Procardia XL] 60 mg PO DAILY #30 tab 11/29/19 03/22/20 Rx Pantoprazole [Protonix] 40 mg PO DAILY #30 tab 11/29/19 03/22/20 Rx cloNIDine [Catapres] 0.1 mg PO BIDPRN PRN #60 tab 11/29/19 03/22/20 Rx Acetaminophen [Tylenol Regular 650 mg PO Q6H PRN 03/22/20 03/22/20 History Strength] Cholecalciferol (Vitamin D3) 2,000 unit PO DAILY 03/22/20 03/22/20 History [Vitamin D3] Furosemide [Lasix] 20 mg PO ASDIR 03/22/20 03/22/20 History Lorazepam [Ativan] 1 mg PO HS PRN 03/22/20 03/22/20 History 21/Iron Fu/Folic Acid 1 tablet PO DAILY 03/22/20 03/22/20 History [ Complete Caplet] traZODone HCl [Trazodone HCl] 50 mg PO HS PRN 03/22/20 03/22/20 History Hospitalist ROS - Review of Systems All other systems reviewed; all pertinent +/- noted in HPI/Subj - Medication Medications: Active Medications Generic Name Dose Route Start Last Admin Trade Name Freq PRN Reason Stop Dose Admin Acetaminophen 650 mg 03/22/20 22:31 03/22/20 23:18 Acetaminophen 325 Mg Tab PO 650 mg Q6H PRN Administration Pain Melatonin 3 mg 03/22/20 22:31 03/22/20 23:19 Melatonin 3 Mg Tab PO 3 mg HS PRN Administration Insomnia Trazodone HCl 50 mg 03/22/20 22:32 03/22/20 23:19 Trazodone Hcl 50 Mg Tab PO 50 mg HS PRN Administration Pain Hospitalist History - Past Medical History Heme/Onc: reports: Other (anemia of chronic kidney disease, Hb = 9.1) Hepatobiliary: reports: no pertinent history Psych: reports: Anxiety, Depression Musculoskeletal: reports: Chronic low back pain, Osteoarthritis Rheumatologic: reports: no pertinent history Renal/: reports: Chronic renal failure Endocrine: reports: no pertinent history Dermatology: reports: no pertinent history - Past Surgical History Past Surgical History: reports: Appendectomy, Cholecystectomy, Hysterectomy (partial), Total Hip Replacement (left side), Other (two back surgeries 2004- 2005) - Social History Alcohol: reports: None Drugs: reports: none Hospitalist Exam Vitals: Vital Signs (12 hours) Temp Pulse Resp BP Pulse Ox 03/23/20 04:11 98.5 F 71 18 172/74 H 96 03/22/20 23:00 66 147/70 H 03/22/20 20:45 97.5 F L 68 18 168/72 H 97 Weight Weight 176 lb 5.917 oz General Appearance: NAD, awake alert Eye: PERRL, anicteric sclera ENT: normocephalic atraumatic, no oropharyngeal lesions, moist mucosa Neck: supple, symmetric, no JVD, no thyromegaly Heart: RRR, no murmur, no gallops, no rubs Respiratory: CTAB, no wheezes, no rales, no ronchi Gastrointestinal: soft, non-tender, non-distended, normal bowel sounds Extremities: no cyanosis, no clubbing, 2+ LE edema Skin: normal turgor, no lesions, no rashes Neurological: cranial nerve grossly intact, normal sensation to touch Musculoskeletal: normal tone, normal strength, no muscle wasting Psychiatric: normal affect, normal behavior, A&O x 3 Hospitalist Results Result Diagrams: 03/23/20 04:08 03/23/20 04:08 Lab results: WBC 5.6 thou/uL (4.8-10.8) 03/23/20 04:08 Hgb 11.0 g/dL (12.0-16.0) L 03/23/20 04:08 Hct 34.0 % (36.0-47.0) L 03/23/20 04:08 MCV 95.1 fL (78.0-98.0) 03/23/20 04:08 Plt Count 241 thou/uL (130-400) 03/23/20 04:08 Neutrophils % 45.7 % (42.0-75.0) 03/23/20 04:08 Sodium 136 mmol/L (136-145) 03/23/20 04:08 Potassium 4.8 mmol/L (3.5-5.1) 03/23/20 04:08 Chloride 111 mmol/L (98-107) H 03/23/20 04:08 Carbon Dioxide 15 mmol/L (23-31) L 03/23/20 04:08 BUN 55 mg/dL (9.8-20.1) H 03/23/20 04:08 Creatinine 4.87 mg/dL (0.6-1.1) H 03/23/20 04:08 Glucose 97 mg/dL (83-110) 03/23/20 04:08 Calcium 8.6 mg/dL (7.8-10.44) 03/23/20 04:08 Total Bilirubin 0.2 mg/dL (0.2-1.2) 03/22/20 15:58 AST 16 U/L (5-34) 03/22/20 15:58 ALT 7 U/L (8-55) L 03/22/20 15:58 Alkaline Phosphatase 72 U/L (40-110) 03/22/20 15:58 CK-MB (CK-2) 2.6 ng/mL (0-6.6) 03/22/20 15:58 Troponin I 0.034 ng/mL (< 0.028) H 03/22/20 23:08 Serum Total Protein 6.4 g/dL (5.8-8.1) 03/22/20 15:58 Albumin 3.3 g/dL (3.4-4.8) L 03/22/20 15:58 Hospitalist H&P A/P - Problem (1) Renal failure (ARF), acute on chronic Code(s): N17.9 - ACUTE KIDNEY FAILURE, UNSPECIFIED; N18.9 - CHRONIC KIDNEY DISEASE, UNSPECIFIED Status: Acute (2) Chronic pain disorder Code(s): G89.4 - CHRONIC PAIN SYNDROME Status: Chronic (3) Dyslipidemia Code(s): E78.5 - HYPERLIPIDEMIA, UNSPECIFIED Status: Acute (4) Hypertension Code(s): I10 - ESSENTIAL (PRIMARY) HYPERTENSION Status: Chronic Qualifiers: Hypertension type: essential hypertension (5) Obesity (BMI 30.0-34.9) Code(s): E66.9 - OBESITY, UNSPECIFIED Status: Chronic (6) Weakness Code(s): R53.1 - WEAKNESS Status: Chronic - Plan Plan: 79y/o female with the stated pmhx who presents with renal failure acute on chronic renal failure - [facility] to [facility] - will require h/d - avoid nephrotoxic medication - gen surg consulted - nephro consulted htn / hld - continue home meds - adjust as necessary
[2020-03-23] MEDS ORDERED: Tuberculin PPD 0.1 ML VIAL I-DERMAL SCH (09:00)
[2020-03-23] MEDS ORDERED: PROPOFOL 200 MG/20 ML VIAL ONE (09:05)
[2020-03-23] MEDS: NIFEdipine XL 60 MG TAB PO SCH (09:46)
[2020-03-23] MEDS: hydrALAZINE 25 MG TAB PO SCH ×3 (09:46→20:28)
[2020-03-23] MEDS: FLUoxetine HCl 20 MG CAP PO SCH (09:46)
[2020-03-23] MEDS: Heparin 5,000 UNITS/ML VIAL SC SCH ×2 (09:47→20:28)
[2020-03-23] MEDS: Famotidine 20 MG TAB PO SCH (09:47)
--- NOTE | 2020-03-23 10:02 | CON ---
DATE OF CONSULTATION: Marilynn Betancourt is a 79-year-old female, who lives alone in [place]. She is ambulatory with a walker. She has longstanding hypertension and chronic kidney disease. I have been asked by Dr. Car Stanton to place dialysis access. White count is 5, hemoglobin 11, potassium 4.8, BUN and creatinine 55 and 4.87, carbon dioxide 15. She is COVID negative, 03/22/2020. ALLERGIES: KETORALAC, BUTORPHANOL, CEFTRIAXONE, VANCOMYCIN. SOCIAL HISTORY: Tobacco, none. Alcohol, none. MEDICATIONS: At home she takes: 1. vitamins. 2. Vitamin D3. 3. Ativan. 4. Tylenol. 5. Ferrous sulfate. 6. Fluoxetine. 7. Furosemide. 8. Melatonin. 9. Gabapentin. 10. Clonidine p.r.n. 11. Protonix daily. 12. Nifedipine. 13. Procardia XL 60 mg a day. 14. Trazodone 50 mg at bedtime. 15. Hydralazine 50 mg t.i.d. PAST SURGICAL HISTORY: Three lumbar surgeries, laparoscopic cholecystectomy, laparoscopic appendectomy many years ago, she had a colonoscopy. Echocardiogram 06/28/2016, normal ejection fraction. No significant valvular disease. July 2015, Dr. Jang performed T10-11 laminectomy, facetectomy, foraminotomy. Dr. Neal Omer on 04/11/2016 performed upper endoscopy, balloon dilatation and biopsy for esophagitis, mild esophageal stricture, 2 cm hiatal hernia. On 05/11/2006, Dr. Jang removed intrathecal opioid pump due to malfunction. On 01/09/2007, FELIPE Hardy, orthopedic team press fit left total hip arthroplasty, Dr. Walter. PAST MEDICAL HISTORY: Hypertension, chronic kidney disease, chronic back pain, sent by her neurologist for worsening renal function. She has an IV in her left hand. REVIEW OF SYSTEMS: Noncontributory. No cardiac history. No MIs. No cardiac evaluation. FAMILY HISTORY: Noncontributory. PHYSICAL EXAMINATION: VITAL SIGNS: Height 5 feet 6 inches, 176 pounds, 28 BMI. Temperature 98.5, pulse 71, blood pressure 172/74. LUNGS: Clear to auscultation. CARDIAC: Regular rate and rhythm without murmur or gallop. ABDOMEN: Soft, nontender. EXTREMITIES: Palpable radial pulses. Mild ankle edema. LABORATORY DATA: COVID negative. Sodium 136, potassium 4.8, chloride 111, carbon dioxide 15, BUN 55, creatinine 4.87. White count 5, hemoglobin 11. ASSESSMENT AND PLAN: 1. Chronic kidney disease with deterioration, now end-stage renal disease, needs dialysis access. We will plan on placement of a cuffed tunneled hemodialysis catheter and central line today, allow for dialysis, and return to the operating room in the near future. This hospitalization apprised of having a fistula. Obtain ultrasound vein mapping both arms to plan future more definitive access. 2. Hypertension. 3. Ambulatory with a walker, chronic back pain. Job ID: [id number]
[2020-03-23] MEDS: Acetaminophen 325 MG TAB PO PRN (10:12)
--- NOTE | 2020-03-23 11:34 | ULT ---
Exam: Vein mapping for dialysis access HISTORY: End-stage renal disease. TECHNIQUE: Multiplanar grayscale and color Doppler images were obtained in a bilateral upper extremit y venous ultrasound. Spectral analysis of the Doppler waveforms of the vessels were performed. FINDINGS: The bilateral internal jugular, subclavian, and axillary veins are patent without evidence of thrombus. Right brachial artery 4.8 mm Right radial artery 2.2 mm Right ulnar artery 1.6 mm Left brachial artery 4.2 mm Left radial artery 2.5 mm Left ulnar artery 2.2 mm RIGHT CEPHALIC VEIN in millimeters 1.6 -- Shoulder 1.6 -- Upper arm 1.6 -- Mid upper arm 1.2-- Just proximal to the elbow 1.1 -- Just distal to the elbow 1.1 -- Forearm 0.9 -- Wrist RIGHT BASILIC VEIN in millimeters 4.6 -- Shoulder 4.8 -- Upper arm 4.1 -- Mid upper arm 3.7 -- Just proximal to the elbow 1.4 -- Just distal to the elbow 1.0 -- Forearm 0.4 -- Wrist LEFT CEPHALIC VEIN in millimeters 1.6 -- Shoulder 2.0 -- Upper arm 2.2 -- Mid upper arm 2.3 -- Just proximal to the elbow 1.2 -- Just distal to the elbow 0.8 -- Forearm 0.8 -- Wrist LEFT BASILIC VEIN in millimeters 6.2 -- Shoulder 4.9 -- Upper arm 4.8 -- Mid upper arm 3.9 -- Just proximal to the elbow 2.8 -- Just distal to the elbow 2.9 -- Forearm 2.8 -- Wrist IMPRESSION: Vein mapping for dialysis access as above
--- NOTE | 2020-03-23 12:16 | EKG ---
Test Reason : Blood Pressure : / mmHG Vent. Rate : 071 BPM Atrial Rate : 071 BPM P-R Int : 190 ms QRS Dur : 150 ms QT Int : 458 ms P-R-T Axes : 000 001 075 degrees QTc Int : 497 ms Normal sinus rhythm Right bundle branch block Inferior infarct possibly acute Cannot rule out Anterior infarct (cited on or before 18-SEP-2019) Abnormal ECG When compared with ECG of 18-SEP-2019 08:46, No significant change was found Confirmed by DR. Pamela DRUMMOND ([id number]) on 03/23/2020 12:15:55 PM Referred By: NI Confirmed By:DR. Pamela DRUMMOND
[2020-03-23] MEDS ORDERED: XYLOCAINE 2%-EPI 1:100,000 20 ML VIAL ONE (15:40)
[2020-03-23] MEDS ORDERED: Bupivacaine PF 0.5% 30 ML VIAL ONE (15:40)
[2020-03-23] MEDS ORDERED: Sodium Chloride 0.9% 20 ML ONE (15:40)
[2020-03-23] MEDS ORDERED: Heparin 10,000 UNITS/ 10 ML VIAL ONE (15:40)
[2020-03-23] MEDS ORDERED: Levofloxacin 500 mg/D5W 100 ml Premix Bag ONE (15:55)
[2020-03-23] MEDS ORDERED: Midazolam HCl 2 mg/2 ml Vial ONE (16:02)
[2020-03-23] MEDS ORDERED: Fentanyl 100 MCG/2 ML VIAL ONE (16:02)
[2020-03-23] MEDS ORDERED: Promethazine HCl 25 MG/ML VIAL SLOW IVP PRN (17:33)
[2020-03-23] MEDS ORDERED: Ondansetron HCl/PF 4 MG/2 ML Vial IVP PRN (17:33)
[2020-03-23] MEDS ORDERED: Promethazine HCl 25 MG/ML VIAL IM PRN (17:33)
--- NOTE | 2020-03-23 17:43 | RAD ---
PORTABLE CHEST: 03/23/20 HISTORY: Central line. COMPARISON: 10/13/19. There is a dual lumen central line which has been placed. The line overlies the SVC. A second line vi a the left jugular is also in place and it overlies the SVC as well. The lungs are aerated and clear. No pneumothorax or acute lung process. Mild cardiomegaly. IMPRESSION: No acute finding. POS: AGW
[2020-03-23] MEDS: HYDROcodone/Acetaminophen 5/325 mg Tablet PO PRN (18:13)
[2020-03-23 19:25] LABS: HBSAg Index 0.17 S/CO (0-0.99); Hep B Core Total Ab Non-Reactive (NonReactive); Hep B Core Total Index 0.08 S/CO (0-0.79); Hep B Surf Ag Non-Reactive S/CO (NonReactive); Hep C IgG Ab Non-Reactive (NonReactive); Hep C Index 0.09 S/CO (0-0.79)
[2020-03-23] MEDS: Gabapentin 300 MG CAP PO SCH (20:28)
[2020-03-23] MEDS: Morphine 2 MG/ML VIAL SLOW IVP PRN (20:36)
[2020-03-23] MEDS: Melatonin 3 MG TAB PO PRN (20:36)
--- NOTE | 2020-03-23 23:27 | OP ---
DATE OF PROCEDURE: 03/23/2020 PREOPERATIVE DIAGNOSIS: End-stage renal disease, acidosis, initiating dialysis. POSTOPERATIVE DIAGNOSIS: End-stage renal disease, acidosis, initiating dialysis. PROCEDURE PERFORMED: Right IJ cuffed tunneled hemodialysis catheter, left IJ central line. ANESTHESIA: Intravenous sedation local, 0.5% Marcaine 30 mL mixed with 1% Xylocaine with epinephrine 20 mL. DESCRIPTION OF PROCEDURE: The patient was taken to the operating room where under intravenous sedation, neck and chest were prepared with ChloraPrep and draped in routine fashion. Local anesthetic infiltrated in the skin and subcutaneous tissue about the operative sites. Using an ultrasound guidance, the right and left internal jugular veins were cannulated with trocar catheter. J-wire was threaded. Trocar catheter was removed. Skin incision site enlarged sharply with an 11 blade and stab incision made over the right chest. Seldinger technique used to place triple-lumen catheter on the left and secured with 3-0 nylon suture, and aspirated each port flushed with saline solution. Sterile dressing applied. On the right side, a cuffed tunneled hemodialysis catheter tunneled between the 2 incisions, placing the fabric cuff beneath the skin exit site over the right chest and securing the catheter with interrupted sutures of 3-0 nylon and sterile dressing applied. Small and medium-sized dilators were placed over the J-wire into the superior vena cava and dilator and J-wire were removed. Catheter placed with Peel-Away sheath. Peel-Away sheath removed. Platysma was approximated with 4-0 Monocryl, skin with subdermal 4-0 Monocryl. Trainer glue applied. Fluoroscopic images revealed good line placements. Each port aspirated blood flushed with saline solution and heparinized saline solution. The patient tolerated the procedure well. Job ID: [id number]
[2020-03-24 03:57] LABS: #Basophils 0.1 thou/uL (0.0-0.2); #Eosinphils 0.3 thou/uL (0.0-0.7); #Lymphocytes 1.8 thou/uL (1.20-3.40); #Monocytes 0.4 thou/uL (0.11-0.59); #Neutrophils 3.2 thou/uL (1.40-6.50); %Basophils 1.1 % (0.0-1.0); %Eosinophils 5.5 % (0.0-10.0); %Lymphocytes 31.1 % (21.0-51.0); %Monocytes 7.4 % (0.0-10.0); Hemoglobin 10.2 g/dL (12.0-16.0); Mean Corpuscular HGB CONC 31.6 g/dL (32.0-36.0); Mean Corpuscular Hemoglobin 30.3 pg (27.0-31.0); Mean Corpuscular Volume 95.8 fL (78.0-98.0); Mean Platelet Volume 6.7 fL (7.4-10.4); Platelet Count 231 thou/uL (130-400); RBC Distribution Width 14.7 % (11.5-14.5); Red Blood Cell (RBC) Count 3.38 mill/uL (4.20-5.40); White Blood Cell (WBC) Count 5.8 thou/uL (4.8-10.8)
[2020-03-24] MEDS: hydrALAZINE 20 MG/ML VIAL SLOW IVP PRN (03:59)
[2020-03-24 04:32] LABS: Anion Gap 14 mmol/L (10-20); BUN (Urea Nitrogen) 54 mg/dL (9.8-20.1); Calc. Creatinine Clearance 12 mL/min (70-130); Calcium 8.1 mg/dL (7.8-10.44); Carbon Dioxide 17 mmol/L (23-31); Chloride 111 mmol/L (98-107); Glucose 86 mg/dL (83-110); Magnesium 2.4 mg/dL (1.6-2.6); Potassium 5.3 mmol/L (3.5-5.1); Sodium 137 mmol/L (136-145)
[2020-03-24] MEDS: Morphine 2 MG/ML VIAL SLOW IVP PRN (05:21)
[2020-03-24] MEDS: cloNIDine 0.1 MG TAB PO PRN (05:22)
[2020-03-24] MEDS: NIFEdipine XL 60 MG TAB PO SCH (09:05)
[2020-03-24] MEDS: FLUoxetine HCl 20 MG CAP PO SCH (09:06)
[2020-03-24] MEDS: hydrALAZINE 25 MG TAB PO SCH ×3 (09:06→20:07)
[2020-03-24] MEDS: Famotidine 20 MG TAB PO SCH (09:06)
[2020-03-24] MEDS: Heparin 5,000 UNITS/ML VIAL SC SCH ×2 (09:06→20:07)
--- NOTE | 2020-03-24 11:39 | PDOC.HOSPP ---
- Subjective Encounter Date: 03/24/20 Encounter Time: 11:35 Subjective: patient seen on f/u for acute over chronic kidney disease. patient refers feeling fine denies an fever chills chest pain or sob. does refer some soreness on the cath site that improves with tylenol - Objective Vital Signs & Weight: Vital Signs (12 hours) Temp Pulse Resp BP BP Pulse Ox 03/24/20 11:00 97.8 F 60 12 140/65 96 03/24/20 08:02 97.7 F 71 12 173/76 H 94 L 03/24/20 06:18 68 151/67 H 03/24/20 05:22 192/84 H 03/24/20 03:35 97.9 F 79 18 199/87 H 97 03/24/20 00:00 65 Weight Admit Weight 176 lb 5.917 oz Weight 177 lb 1.6 oz I&O: 03/23/20 03/24/20 03/25/20 06:59 06:59 06:59 Intake Total 1320 Output Total 850 Balance 470 Result Diagrams: 03/24/20 03:32 03/24/20 03:32 Hospitalist ROS - Review of Systems All other systems reviewed; all pertinent +/- noted in HPI/Subj - Medication Medications: Active Medications Generic Name Dose Route Start Last Admin Trade Name Freq PRN Reason Stop Dose Admin Hydrocodone Bitart/Acetaminophen 1 tab 03/23/20 02:16 03/23/20 18:13 Hydrocodone/Acetaminophen 5/325 Mg Tablet PO 1 tab Q4H PRN Administration Moderate Pain (4-6) Clonidine 0.1 mg 03/23/20 02:16 03/24/20 05:22 Clonidine 0.1 Mg Tab PO 0.1 mg BID PRN Administration SBP > 160 use second Famotidine 20 mg 03/23/20 09:00 03/24/20 09:06 Famotidine 20 Mg Tab PO 20 mg QAM FLORI Administration Fluoxetine HCl 40 mg 03/23/20 09:00 03/24/20 09:06 Fluoxetine Hcl 20 Mg Cap PO 40 mg DAILY FLORI Administration Gabapentin 300 mg 03/23/20 21:00 03/23/20 20:28 Gabapentin 300 Mg Cap PO 300 mg HS FLORI Administration Heparin Sodium (Porcine) 5,000 units 03/23/20 09:00 03/24/20 09:06 Heparin 5,000 Units/Ml Vial SC 5,000 units BID FLORI Administration Hydralazine HCl 50 mg 03/23/20 09:00 03/24/20 09:06 Hydralazine 25 Mg Tab PO 50 mg TID FLORI Administration Hydralazine HCl 10 mg 03/23/20 02:16 03/24/20 03:59 Hydralazine 20 Mg/Ml Vial SLOW IVP 10 mg Q6H PRN Administration SBP GREATER THAN 160 Melatonin 3 mg 03/22/20 22:31 03/23/20 20:36 Melatonin 3 Mg Tab PO 3 mg HS PRN Administration Insomnia Morphine Sulfate 2 mg 03/23/20 02:16 03/24/20 05:21 Morphine 2 Mg/Ml Vial SLOW IVP 2 mg Q4H PRN Administration severe pain 4-10 Nifedipine 60 mg 03/23/20 09:00 03/24/20 09:05 Nifedipine Xl 60 Mg Tab PO 60 mg DAILY FLORI Administration Pantoprazole Sodium 40 mg 03/23/20 09:00 03/24/20 09:06 Pantoprazole 40 Mg Tab PO 40 mg DAILY FLORI Administration Sodium Chloride 10 ml 03/22/20 20:41 03/24/20 04:02 Flush - Normal Saline 10 Ml Syringe IVF 10 ml PRN PRN Administration Saline Flush Trazodone HCl 50 mg 03/22/20 22:32 03/22/20 23:19 Trazodone Hcl 50 Mg Tab PO 50 mg HS PRN Administration Pain Hospitalist Exam Vitals: Vital Signs (12 hours) Temp Pulse Resp BP BP Pulse Ox 03/24/20 11:00 97.8 F 60 12 140/65 96 03/24/20 08:02 97.7 F 71 12 173/76 H 94 L 03/24/20 06:18 68 151/67 H 03/24/20 05:22 192/84 H 03/24/20 03:35 97.9 F 79 18 199/87 H 97 03/24/20 00:00 65 Weight Admit Weight 176 lb 5.917 oz Weight 177 lb 1.6 oz General Appearance: NAD, awake alert Eye: PERRL, anicteric sclera ENT: normocephalic atraumatic, no oropharyngeal lesions, moist mucosa Neck: supple, symmetric, no JVD, no thyromegaly Heart: RRR, no murmur, no gallops, no rubs Respiratory: CTAB, no wheezes, no rales Gastrointestinal: soft, non-tender, non-distended Extremities: no cyanosis, no clubbing, no edema Skin: normal turgor, no lesions, no rashes Neurological: cranial nerve grossly intact, normal sensation to touch Musculoskeletal: normal tone, normal strength, no muscle wasting Psychiatric: normal affect, normal behavior, A&O x 3 Hosp A/P (1) Renal failure (ARF), acute on chronic Code(s): N17.9 - ACUTE KIDNEY FAILURE, UNSPECIFIED; N18.9 - CHRONIC KIDNEY DISEASE, UNSPECIFIED Status: Acute (2) Chronic pain disorder Code(s): G89.4 - CHRONIC PAIN SYNDROME Status: Chronic (3) Dyslipidemia Code(s): E78.5 - HYPERLIPIDEMIA, UNSPECIFIED Status: Acute (4) Hypertension Code(s): I10 - ESSENTIAL (PRIMARY) HYPERTENSION Status: Chronic Qualifiers: Hypertension type: essential hypertension Qualified Code(s): I10 - Essential (primary) hypertension (5) Obesity (BMI 30.0-34.9) Code(s): E66.9 - OBESITY, UNSPECIFIED Status: Chronic (6) Weakness Code(s): R53.1 - WEAKNESS Status: Chronic - Plan acute on chronic renal failure - sent by [facility] due to renal failure - h/d schedule for today for the 1st time - gen surg consulted, s/p h/d cath placement on 03/23/2019 - nephro on case - case folder on case for oupt h/d seat htn / hld - continue home meds - adjust as necessary
[2020-03-24] MEDS: Gabapentin 300 MG CAP PO SCH (20:06)
[2020-03-24] MEDS: Melatonin 3 MG TAB PO PRN (20:07)
[2020-03-25 04:26] LABS: #Eosinphils 0.5 thou/uL (0.0-0.7); #Lymphocytes 1.7 thou/uL (1.20-3.40); #Monocytes 0.6 thou/uL (0.11-0.59); #Neutrophils 2.6 thou/uL (1.40-6.50); %Basophils 0.4 % (0.0-1.0); %Eosinophils 8.7 % (0.0-10.0); %Monocytes 10.1 % (0.0-10.0); %Neutrophils 48.8 % (42.0-75.0); Hemoglobin 10.2 g/dL (12.0-16.0); Mean Corpuscular Hemoglobin 29.6 pg (27.0-31.0); Mean Corpuscular Volume 95.4 fL (78.0-98.0); Mean Platelet Volume 6.8 fL (7.4-10.4); Platelet Count 224 thou/uL (130-400); RBC Distribution Width 14.6 % (11.5-14.5); Red Blood Cell (RBC) Count 3.46 mill/uL (4.20-5.40); White Blood Cell (WBC) Count 5.4 thou/uL (4.8-10.8)
[2020-03-25 05:16] LABS: Anion Gap 15 mmol/L (10-20); BUN (Urea Nitrogen) 48 mg/dL (9.8-20.1); Calc. Creatinine Clearance 13 mL/min (70-130); Calcium 8.2 mg/dL (7.8-10.44); Carbon Dioxide 19 mmol/L (23-31); Chloride 107 mmol/L (98-107); Glucose 95 mg/dL (83-110); Magnesium 2.3 mg/dL (1.6-2.6); Potassium 4.9 mmol/L (3.5-5.1); Sodium 136 mmol/L (136-145)
[2020-03-25] MEDS: HYDROcodone/Acetaminophen 5/325 mg Tablet PO PRN ×2 (08:43→13:35)
[2020-03-25] MEDS: NIFEdipine XL 60 MG TAB PO SCH (08:46)
[2020-03-25] MEDS: hydrALAZINE 20 MG/ML VIAL SLOW IVP PRN (08:46)
[2020-03-25] MEDS: FLUoxetine HCl 20 MG CAP PO SCH (08:47)
[2020-03-25] MEDS: Heparin 5,000 UNITS/ML VIAL SC SCH ×2 (08:47→20:40)
[2020-03-25] MEDS: Famotidine 20 MG TAB PO SCH (08:47)
[2020-03-25] MEDS: hydrALAZINE 25 MG TAB PO SCH ×3 (08:47→20:40)
[2020-03-25] MEDS: READ PPD TEST SITE PO SCH ×2 (08:48→17:42)
[2020-03-25] MEDS: Morphine 2 MG/ML VIAL SLOW IVP PRN ×2 (10:15→15:42)
[2020-03-25] MEDS: Lidocaine 5% Patch TD SCH (13:34)
[2020-03-25 14:14] LABS: Hep B Surface AG-Rflx Sendout Negative (Negative); Hepatitis B Core Total Negative (Negative); Hepatitis B Surface AB-Sendout Non Reactive (.)
--- NOTE | 2020-03-25 14:54 | PDOC.HOSPP ---
- Subjective Encounter Date: 03/25/20 Encounter Time: 11:45 Subjective: pt up in bed complains of lower back pain. - Objective Vital Signs & Weight: Vital Signs (12 hours) Temp Pulse Resp BP Pulse Ox 03/25/20 11:31 98 F 71 13 135/59 L 90 L 03/25/20 08:05 98.1 F 84 17 191/81 H 94 L 03/25/20 03:34 97.4 F L 65 17 154/68 H 96 Weight Admit Weight 176 lb 5.917 oz Weight 175 lb I&O: 03/24/20 03/25/20 03/26/20 06:59 06:59 06:59 Intake Total 1320 960 Output Total 850 1175 Balance 470 -215 Result Diagrams: 03/25/20 04:00 03/25/20 04:00 Hospitalist ROS - Review of Systems Cardiovascular: denies: chest pain, palpitations, orthopnea, paroxysmal noc. dyspnea, edema, light headedness, other Gastrointestinal: denies: nausea, vomiting, abdominal pain, diarrhea, constipation, melena, hematochezia, other Genitourinary: denies: dysuria, frequency, incontinence, hematuria, retention, other Musculoskeletal: reports: back pain - Medication Medications: Active Medications Generic Name Dose Route Start Last Admin Trade Name Freq PRN Reason Stop Dose Admin Hydrocodone Bitart/Acetaminophen 1 tab 03/23/20 02:16 03/25/20 13:35 Hydrocodone/Acetaminophen 5/325 Mg Tablet PO 1 tab Q4H PRN Administration Moderate Pain (4-6) Clonidine 0.1 mg 03/23/20 02:16 03/24/20 05:22 Clonidine 0.1 Mg Tab PO 0.1 mg BID PRN Administration SBP > 160 use second Famotidine 20 mg 03/23/20 09:00 03/25/20 08:47 Famotidine 20 Mg Tab PO 20 mg QAM FLORI Administration Fluoxetine HCl 40 mg 03/23/20 09:00 03/25/20 08:47 Fluoxetine Hcl 20 Mg Cap PO 40 mg DAILY FLORI Administration Gabapentin 300 mg 03/23/20 21:00 03/24/20 20:06 Gabapentin 300 Mg Cap PO 300 mg HS FLORI Administration Heparin Sodium (Porcine) 5,000 units 03/23/20 09:00 03/25/20 08:47 Heparin 5,000 Units/Ml Vial SC 5,000 units BID FLORI Administration Hydralazine HCl 50 mg 03/23/20 09:00 03/25/20 08:47 Hydralazine 25 Mg Tab PO 50 mg TID FLORI Administration Hydralazine HCl 10 mg 03/23/20 02:16 03/25/20 08:46 Hydralazine 20 Mg/Ml Vial SLOW IVP 10 mg Q6H PRN Administration SBP GREATER THAN 160 Melatonin 3 mg 03/22/20 22:31 03/24/20 20:07 Melatonin 3 Mg Tab PO 3 mg HS PRN Administration Insomnia Morphine Sulfate 2 mg 03/23/20 02:16 03/24/20 05:21 Morphine 2 Mg/Ml Vial SLOW IVP 2 mg Q4H PRN Administration severe pain 4-10 Nifedipine 60 mg 03/23/20 09:00 03/25/20 08:46 Nifedipine Xl 60 Mg Tab PO 60 mg DAILY FLORI Administration Pantoprazole Sodium 40 mg 03/23/20 09:00 03/25/20 08:47 Pantoprazole 40 Mg Tab PO 40 mg DAILY FLORI Administration Sodium Chloride 10 ml 03/22/20 20:41 03/24/20 04:02 Flush - Normal Saline 10 Ml Syringe IVF 10 ml PRN PRN Administration Saline Flush Trazodone HCl 50 mg 03/22/20 22:32 03/22/20 23:19 Trazodone Hcl 50 Mg Tab PO 50 mg HS PRN Administration Pain Hospitalist Exam Vitals: Vital Signs (12 hours) Temp Pulse Resp BP Pulse Ox 03/25/20 11:31 98 F 71 13 135/59 L 90 L 03/25/20 08:05 98.1 F 84 17 191/81 H 94 L 03/25/20 03:34 97.4 F L 65 17 154/68 H 96 Weight Admit Weight 176 lb 5.917 oz Weight 175 lb Neck: supple Heart: RRR Respiratory: no wheezes, no rales Gastrointestinal: soft, normal bowel sounds Extremities: 2+ LE edema Hosp A/P - Plan (1) Renal failure (ARF), acute on chronic Code(s): N17.9 - ACUTE KIDNEY FAILURE, UNSPECIFIED; N18.9 - CHRONIC KIDNEY DISEASE, UNSPECIFIED Status: Acute (2) Chronic pain disorder Code(s): G89.4 - CHRONIC PAIN SYNDROME Status: Chronic (3) Dyslipidemia Code(s): E78.5 - HYPERLIPIDEMIA, UNSPECIFIED Status: Acute (4) Hypertension Code(s): I10 - ESSENTIAL (PRIMARY) HYPERTENSION Status: Chronic Qualifiers: Hypertension type: essential hypertension Qualified Code(s): I10 - Essent ial (primary) hypertension (5) Obesity (BMI 30.0-34.9) Code(s): E66.9 - OBESITY, UNSPECIFIED Status: Chronic (6) Weakness Code(s): R53.1 - WEAKNESS Status: Chronic - Plan acute on chronic renal failure - sent by [facility] due to renal failure - h/d schedule for today for the 1st time - gen surg consulted, s/p h/d cath placement on 03/23/2019 - nephro on case - case folder on case for oupt h/d seat htn / hld - continue home meds - adjust as necessary will get PT to see her
[2020-03-25] MEDS: Gabapentin 300 MG CAP PO SCH (20:41)
[2020-03-26] MEDS: Transdermal Patch Removal TOP SCH (02:17)
[2020-03-26] MEDS: hydrALAZINE 20 MG/ML VIAL SLOW IVP PRN (05:55)
[2020-03-26] MEDS: hydrALAZINE 25 MG TAB PO SCH ×3 (08:18→20:45)
[2020-03-26] MEDS: NIFEdipine XL 60 MG TAB PO SCH (08:18)
[2020-03-26] MEDS: Famotidine 20 MG TAB PO SCH (08:19)
[2020-03-26] MEDS: Heparin 5,000 UNITS/ML VIAL SC SCH ×2 (08:19→20:46)
[2020-03-26] MEDS: FLUoxetine HCl 20 MG CAP PO SCH (08:19)
[2020-03-26] MEDS: Gabapentin 300 MG CAP PO SCH ×2 (09:09→20:46)
[2020-03-26] MEDS ORDERED: Heparin 10,000 UNITS/ 10 ML VIAL ONE (12:03)
--- NOTE | 2020-03-26 13:35 | PDOC.HOSPP ---
- Subjective Encounter Date: 03/26/20 Encounter Time: 10:30 Subjective: Patient up in bed no complaints. - Objective Vital Signs & Weight: Vital Signs (12 hours) Temp Pulse Pulse Pulse Resp BP BP 03/26/20 11:44 97.7 F 74 16 03/26/20 11:06 74 70 145/70 H 151/70 H 03/26/20 08:25 03/26/20 08:00 98.7 F 103 H 16 03/26/20 05:55 78 03/26/20 03:11 98 F 78 20 BP Pulse Ox Pulse Ox 03/26/20 11:44 145/70 H 95 03/26/20 11:06 95 03/26/20 08:25 96 03/26/20 08:00 192/79 H 96 03/26/20 05:55 03/26/20 03:11 183/77 H 94 L Weight Admit Weight 176 lb 5.917 oz Weight 189 lb I&O: 03/25/20 03/26/20 03/27/20 06:59 06:59 06:59 Intake Total 960 1000 Output Total 1175 700 Balance -215 300 Result Diagrams: 03/25/20 04:00 03/25/20 04:00 Hospitalist ROS - Review of Systems Cardiovascular: denies: chest pain, palpitations, orthopnea, paroxysmal noc. dyspnea, edema, light headedness, other Gastrointestinal: denies: nausea, vomiting, abdominal pain, diarrhea, constipation, melena, hematochezia, other Genitourinary: denies: dysuria, frequency, incontinence, hematuria, retention, other - Medication Medications: Active Medications Generic Name Dose Route Start Last Admin Trade Name Freq PRN Reason Stop Dose Admin Hydrocodone Bitart/Acetaminophen 1 tab 03/23/20 02:16 03/25/20 13:35 Hydrocodone/Acetaminophen 5/325 Mg Tablet PO 1 tab Q4H PRN Administration Moderate Pain (4-6) Clonidine 0.1 mg 03/23/20 02:16 03/24/20 05:22 Clonidine 0.1 Mg Tab PO 0.1 mg BID PRN Administration SBP > 160 use second Famotidine 20 mg 03/23/20 09:00 03/26/20 08:19 Famotidine 20 Mg Tab PO 20 mg QAM FLORI Administration Fluoxetine HCl 40 mg 03/23/20 09:00 03/26/20 08:19 Fluoxetine Hcl 20 Mg Cap PO 40 mg DAILY FLORI Administration Gabapentin 300 mg 03/26/20 09:00 03/26/20 09:09 Gabapentin 300 Mg Cap PO 300 mg BID FLORI Administration Heparin Sodium (Porcine) 5,000 units 03/23/20 09:00 03/26/20 08:19 Heparin 5,000 Units/Ml Vial SC 5,000 units BID FLORI Administration Hydralazine HCl 50 mg 03/23/20 09:00 03/26/20 08:18 Hydralazine 25 Mg Tab PO 50 mg TID FLORI Administration Hydralazine HCl 10 mg 03/23/20 02:16 03/26/20 05:55 Hydralazine 20 Mg/Ml Vial SLOW IVP 10 mg Q6H PRN Administration SBP GREATER THAN 160 Lidocaine 1 patch 03/25/20 13:00 03/25/20 13:34 Lidocaine 5% Patch TD 1 patch 1300 FLORI Administration Melatonin 3 mg 03/22/20 22:31 03/24/20 20:07 Melatonin 3 Mg Tab PO 3 mg HS PRN Administration Insomnia Miscellaneous Medication 1 each 03/26/20 01:00 03/26/20 02:17 Lidocaine Patch Removal 1 Each TOP 1 each 0100 FLORI Administration Morphine Sulfate 2 mg 03/23/20 02:16 03/25/20 15:42 Morphine 2 Mg/Ml Vial SLOW IVP 2 mg Q4H PRN Administration severe pain 4-10 Nifedipine 60 mg 03/23/20 09:00 03/26/20 08:18 Nifedipine Xl 60 Mg Tab PO 60 mg DAILY FLORI Administration Pantoprazole Sodium 40 mg 03/23/20 09:00 03/26/20 08:19 Pantoprazole 40 Mg Tab PO 40 mg DAILY FLORI Administration Sodium Chloride 10 ml 03/22/20 20:41 03/24/20 04:02 Flush - Normal Saline 10 Ml Syringe IVF 10 ml PRN PRN Administration Saline Flush Trazodone HCl 50 mg 03/22/20 22:32 03/22/20 23:19 Trazodone Hcl 50 Mg Tab PO 50 mg HS PRN Administration Pain Hospitalist Exam Vitals: Vital Signs (12 hours) Temp Pulse Pulse Pulse Resp BP BP 03/26/20 11:44 97.7 F 74 16 03/26/20 11:06 74 70 145/70 H 151/70 H 01/29/21 08:25 03/26/20 08:00 98.7 F 103 H 16 03/26/20 05:55 78 03/26/20 03:11 98 F 78 20 BP Pulse Ox Pulse Ox 03/26/20 11:44 145/70 H 95 03/26/20 11:06 95 03/26/20 08:25 96 03/26/20 08:00 192/79 H 96 03/26/20 05:55 03/26/20 03:11 183/77 H 94 L Weight Admit Weight 176 lb 5.917 oz Weight 189 lb Neck: supple Heart: RRR Respiratory: no wheezes, no rales, no ronchi Gastrointestinal: soft, normal bowel sounds Hosp A/P - Plan (1) Renal failure (ARF), acute on chronic Code(s): N17.9 - ACUTE KIDNEY FAILURE, UNSPECIFIED; N18.9 - CHRONIC KIDNEY DISEASE, UNSPECIFIED Status: Acute (2) Chronic pain disorder Code(s): G89.4 - CHRONIC PAIN SYNDROME Status: Chronic (3) Dyslipidemia Code(s): E78.5 - HYPERLIPIDEMIA, UNSPECIFIED Status: Acute (4) Hypertension Code(s): I10 - ESSENTIAL (PRIMARY) HYPERTENSION Status: Chronic Qualifiers: Hypertension type: essential hypertension Qualified Code(s): I10 - Essential (primary) hypertension (5) Obesity (BMI 30.0-34.9) Code(s): E66.9 - OBESITY, UNSPECIFIED Status: Chronic (6) Weakness Code(s): R53.1 - WEAKNESS Status: Chronic - Plan acute on chronic renal failure - sent by [facility] due to renal failure - h/d schedule for today for the 1st time - gen surg consulted, s/p h/d cath placement on 03/23/2019 - nephro on case - casework specialist on case for oupt h/d seat htn / hld - continue home meds - adjust as necessary will get PT to see her 03/26 PT recommended detention versus inpatient. We will put an inpatient consult for rehab. Family and patient updated. We will continue to monitor. Patient's lower back pain has improved. Possible will undergo fistula placement on Sunday.
[2020-03-26] MEDS: HYDROcodone/Acetaminophen 5/325 mg Tablet PO PRN (16:32)
[2020-03-26] MEDS: Lidocaine 5% Patch TD SCH (16:32)
[2020-03-26] MEDS: READ PPD TEST SITE PO SCH (17:30)
[2020-03-26] MEDS: traZODone HCl 50 MG TAB PO PRN (20:48)
[2020-03-27] MEDS: Transdermal Patch Removal TOP SCH (00:10)
[2020-03-27] MEDS: hydrALAZINE 20 MG/ML VIAL SLOW IVP PRN (05:23)
[2020-03-27] MEDS: HYDROcodone/Acetaminophen 5/325 mg Tablet PO PRN (05:42)
[2020-03-27 06:28] LABS: Anion Gap 12 mmol/L (10-20); BUN (Urea Nitrogen) 27 mg/dL (9.8-20.1); Calc. Creatinine Clearance 21 mL/min (70-130); Calcium 8.6 mg/dL (7.8-10.44); Carbon Dioxide 26 mmol/L (23-31); Chloride 104 mmol/L (98-107); Glucose 93 mg/dL (83-110); Potassium 4.3 mmol/L (3.5-5.1); Sodium 138 mmol/L (136-145)
[2020-03-27 08:25] LABS: #Basophils 0.1 thou/uL (0.0-0.2); #Eosinphils 0.4 thou/uL (0.0-0.7); #Monocytes 0.5 thou/uL (0.11-0.59); %Basophils 1.5 % (0.0-1.0); %Eosinophils 8.8 % (0.0-10.0); %Lymphocytes 39.6 % (21.0-51.0); %Monocytes 10.5 % (0.0-10.0); %Neutrophils 39.6 % (42.0-75.0); Hemoglobin 10.3 g/dL (12.0-16.0); Mean Corpuscular HGB CONC 31.3 g/dL (32.0-36.0); Mean Corpuscular Hemoglobin 29.7 pg (27.0-31.0); Mean Corpuscular Volume 94.8 fL (78.0-98.0); Mean Platelet Volume 7.3 fL (7.4-10.4); Platelet Count 211 thou/uL (130-400); RBC Distribution Width 14.6 % (11.5-14.5); Red Blood Cell (RBC) Count 3.48 mill/uL (4.20-5.40); White Blood Cell (WBC) Count 5.1 thou/uL (4.8-10.8)
[2020-03-27] MEDS: Heparin 5,000 UNITS/ML VIAL SC SCH ×2 (08:46→20:57)
[2020-03-27] MEDS: FLUoxetine HCl 20 MG CAP PO SCH (08:46)
[2020-03-27] MEDS: NIFEdipine XL 60 MG TAB PO SCH (08:46)
[2020-03-27] MEDS: Famotidine 20 MG TAB PO SCH (08:46)
[2020-03-27] MEDS: hydrALAZINE 25 MG TAB PO SCH ×3 (08:46→20:55)
[2020-03-27] MEDS: Gabapentin 300 MG CAP PO SCH ×2 (08:47→20:55)
[2020-03-27] MEDS: traMADol HCl 50 MG TAB PO PRN ×3 (08:50→19:52)
[2020-03-27] MEDS ORDERED: Lorazepam 1 MG TAB PO PRN (09:54)
[2020-03-27] MEDS: Lidocaine 5% Patch TD SCH (13:51)
--- NOTE | 2020-03-27 14:09 | PDOC.HOSPP ---
- Subjective Encounter Date: 03/27/20 Encounter Time: 11:45 Subjective: Patient up in bed no complaints. - Objective Vital Signs & Weight: Vital Signs (12 hours) Temp Pulse Resp BP Pulse Ox 03/27/20 08:44 98.1 F 77 16 179/78 H 93 L 03/27/20 05:23 68 03/27/20 04:00 97.6 F 68 17 187/84 H 92 L Weight Admit Weight 176 lb 5.917 oz Weight 186 lb 11.2 oz I&O: 03/26/20 03/27/20 03/28/20 06:59 06:59 06:59 Intake Total 1000 1140 Output Total 700 750 Balance 300 390 Result Diagrams: 03/27/20 05:20 03/27/20 05:20 Hospitalist ROS - Review of Systems Cardiovascular: denies: chest pain, palpitations, orthopnea, paroxysmal noc. dyspnea, edema, light headedness, other Gastrointestinal: denies: nausea, vomiting, abdominal pain, diarrhea, constipation, melena, hematochezia, other Genitourinary: denies: dysuria, frequency, incontinence, hematuria, retention, other - Medication Medications: Active Medications Generic Name Dose Route Start Last Admin Trade Name Freq PRN Reason Stop Dose Admin Hydrocodone Bitart/Acetaminophen 1 tab 03/23/20 02:16 03/27/20 05:42 Hydrocodone/Acetaminophen 5/325 Mg Tablet PO 1 tab Q4H PRN Administration Moderate Pain (4-6) Clonidine 0.1 mg 03/23/20 02:16 03/24/20 05:22 Clonidine 0.1 Mg Tab PO 0.1 mg BID PRN Administration SBP > 160 use second Famotidine 20 mg 03/23/20 09:00 03/27/20 08:46 Famotidine 20 Mg Tab PO 20 mg QAM FLORI Administration Fluoxetine HCl 40 mg 03/23/20 09:00 03/27/20 08:46 Fluoxetine Hcl 20 Mg Cap PO 40 mg DAILY FLORI Administration Gabapentin 300 mg 03/26/20 09:00 03/27/20 08:47 Gabapentin 300 Mg Cap PO 300 mg BID FLORI Administration Heparin Sodium (Porcine) 5,000 units 03/23/20 09:00 03/27/20 08:46 Heparin 5,000 Units/Ml Vial SC 5,000 units BID FLORI Administration Hydralazine HCl 50 mg 03/23/20 09:00 03/27/20 08:46 Hydralazine 25 Mg Tab PO 50 mg TID FLORI Administration Hydralazine HCl 10 mg 03/23/20 02:16 03/27/20 05:23 Hydralazine 20 Mg/Ml Vial SLOW IVP 10 mg Q6H PRN Administration SBP GREATER THAN 160 Lidocaine 1 patch 03/25/20 13:00 03/27/20 13:51 Lidocaine 5% Patch TD 1 patch 1300 FLORI Administration Melatonin 3 mg 03/22/20 22:31 03/24/20 20:07 Melatonin 3 Mg Tab PO 3 mg HS PRN Administration Insomnia Miscellaneous Medication 1 each 03/26/20 01:00 03/27/20 00:10 Lidocaine Patch Removal 1 Each TOP 1 each 0100 FLORI Administration Morphine Sulfate 2 mg 03/23/20 02:16 03/25/20 15:42 Morphine 2 Mg/Ml Vial SLOW IVP 2 mg Q4H PRN Administration severe pain 4-10 Pantoprazole Sodium 40 mg 03/23/20 09:00 03/27/20 08:47 Pantoprazole 40 Mg Tab PO 40 mg DAILY FLORI Administration Sodium Chloride 10 ml 03/22/20 20:41 03/24/20 04:02 Flush - Normal Saline 10 Ml Syringe IVF 10 ml PRN PRN Administration Saline Flush Tramadol HCl 50 mg 03/23/20 16:54 03/27/20 08:50 Tramadol Hcl 50 Mg Tab PO 50 mg Q4H PRN Administration Moderate Pain (4-6) Trazodone HCl 50 mg 03/22/20 22:32 03/26/20 20:48 Trazodone Hcl 50 Mg Tab PO 50 mg HS PRN Administration Pain Hospitalist Exam Vitals: Vital Signs (12 hours) Temp Pulse Resp BP Pulse Ox 03/27/20 08:44 98.1 F 77 16 179/78 H 93 L 03/27/20 05:23 68 03/27/20 04:00 97.6 F 68 17 187/84 H 92 L Weight Admit Weight 176 lb 5.917 oz Weight 186 lb 11.2 oz Neck: supple Heart: no murmur, no rubs Respiratory: no wheezes, no rales, no ronchi Gastrointestinal: soft, non-tender, normal bowel sounds Extremities: 1+ LE edema Hosp A/P - Plan (1) Renal failure (ARF), acute on chronic Code(s): N17.9 - ACUTE KIDNEY FAILURE, UNSPECIFIED; N18.9 - CHRONIC KIDNEY DISEASE, UNSPECIFIED Status: Acute (2) Chronic pain disorder Code(s): G89.4 - CHRONIC PAIN SYNDROME Status: Chronic (3) Dyslipidemia Code(s): E78.5 - HYPERLIPIDEMIA, UNSPECIFIED Status: Acute (4) Hypertension Code(s): I10 - ESSENTIAL (PRIMARY) HYPERTENSION Status: Chronic Qualifiers: Hypertension type: essential hypertension Qualified Code(s): I10 - Essential (primary) hypertension (5) Obesity (BMI 30.0-34.9) Code(s): E66.9 - OBESITY, UNSPECIFIED Status: Chronic (6) Weakness Code(s): R53.1 - WEAKNESS Status: Chronic - Plan acute on chronic renal failure - sent by [facility] due to renal failure - h/d schedule for today for the 1st time - gen surg consulted, s/p h/d cath placement on 03/23/2019 - nephro on case - case managers on case for oupt h/d seat htn / hld - continue home meds - adjust as necessary will get PT to see her 03/26 PT recommended alf versus inpatient. We will put an inpatient consult for rehab. Family and patient updated. We will continue to monitor. Patient's lower back pain has improved. Possible will undergo fistula placement on Sunday. 03/27 patient's labs stable will increase Procardia to 90 mg daily. Waiting for placement. Possible surgery on Sunday
[2020-03-27] MEDS ORDERED: Bisacodyl 5 MG TAB PO SCH (14:45)
[2020-03-28] MEDS: Transdermal Patch Removal TOP SCH (00:35)
[2020-03-28] MEDS: traMADol HCl 50 MG TAB PO PRN ×3 (03:33→22:00)
[2020-03-28] MEDS: Famotidine 20 MG TAB PO SCH (08:57)
[2020-03-28] MEDS: FLUoxetine HCl 20 MG CAP PO SCH (08:58)
[2020-03-28] MEDS: Prenatal Vitamin 1 TAB PO SCH (08:59)
[2020-03-28] MEDS: Cholecalciferol 1,000 UNITS (25 MCG) TAB PO SCH (09:02)
[2020-03-28] MEDS: hydrALAZINE 25 MG TAB PO SCH ×3 (09:03→21:00)
[2020-03-28] MEDS: Ferrous Sulfate 325 MG TAB PO SCH (09:04)
[2020-03-28] MEDS: Gabapentin 300 MG CAP PO SCH ×2 (09:05→21:00)
[2020-03-28] MEDS: NIFEdipine XL 90 MG TAB PO SCH (09:06)
[2020-03-28] MEDS: Heparin 5,000 UNITS/ML VIAL SC SCH ×2 (09:07→21:00)
[2020-03-28] MEDS: Polyethylene Glycol 3350 17 GM Packet PO SCH (09:08)
[2020-03-28] MEDS ORDERED: Bisacodyl 5 MG TAB PO PRN (11:00)
--- NOTE | 2020-03-28 11:12 | PDOC.HOSPP ---
- Subjective Encounter Date: 03/28/20 Encounter Time: 10:30 Subjective: pt up in bed states that she is constipated. - Objective Vital Signs & Weight: Vital Signs (12 hours) Temp Pulse Resp BP BP Pulse Ox 03/28/20 09:06 69 152/70 H 03/28/20 09:03 69 152/70 H 03/28/20 08:00 98.4 F 69 18 152/70 H 96 03/28/20 03:11 97.9 F 71 16 134/62 93 L Weight Admit Weight 176 lb 5.917 oz Weight 184 lb 5 oz I&O: 03/27/20 03/28/20 03/29/20 06:59 06:59 06:59 Intake Total 1140 830 240 Output Total 750 800 Balance 390 30 240 Result Diagrams: 03/27/20 05:20 03/27/20 05:20 Hospitalist ROS - Review of Systems Respiratory: denies: cough, dry, shortness of breath, hemoptysis, SOB with excertion, pleuritic pain, sputum, wheezing, other Cardiovascular: denies: chest pain, palpitations, orthopnea, paroxysmal noc. dyspnea, edema, light headedness, other Gastrointestinal: reports: other (constipated) Genitourinary: denies: dysuria, frequency, incontinence, hematuria, retention, other Musculoskeletal: denies: neck pain, shoulder pain, arm pain, back pain, hand pain, leg pain, foot pain, other - Medication Medications: Active Medications Generic Name Dose Route Start Last Admin Trade Name Freq PRN Reason Stop Dose Admin Hydrocodone Bitart/Acetaminophen 1 tab 03/23/20 02:16 03/27/20 05:42 Hydrocodone/Acetaminophen 5/325 Mg Tablet PO 1 tab Q4H PRN Administration Moderate Pain (4-6) Cholecalciferol 2,000 units 03/28/20 09:00 03/28/20 09:02 Cholecalciferol 1,000 Units (25 Mcg) Tab PO 2,000 units DAILY FLORI Administration Clonidine 0.1 mg 03/23/20 02:16 03/24/20 05:22 Clonidine 0.1 Mg Tab PO 0.1 mg BID PRN Administration SBP > 160 use second Famotidine 20 mg 03/23/20 09:00 03/28/20 08:57 Famotidine 20 Mg Tab PO 20 mg QAM FLORI Administration Ferrous Sulfate 325 mg 03/28/20 08:00 03/28/20 09:04 Ferrous Sulfate 325 Mg Tab PO 325 mg QAM-WM FLORI Administration Fluoxetine HCl 40 mg 03/23/20 09:00 03/28/20 08:58 Fluoxetine Hcl 20 Mg Cap PO 40 mg DAILY FLORI Administration Gabapentin 300 mg 03/26/20 09:00 03/28/20 09:05 Gabapentin 300 Mg Cap PO 300 mg BID FLORI Administration Heparin Sodium (Porcine) 5,000 units 03/23/20 09:00 03/28/20 09:07 Heparin 5,000 Units/Ml Vial SC 5,000 units BID FLORI Administration Hydralazine HCl 50 mg 03/23/20 09:00 03/28/20 09:03 Hydralazine 25 Mg Tab PO 50 mg TID FLORI Administration Hydralazine HCl 10 mg 03/23/20 02:16 03/27/20 05:23 Hydralazine 20 Mg/Ml Vial SLOW IVP 10 mg Q6H PRN Administration SBP GREATER THAN 160 Lidocaine 1 patch 03/25/20 13:00 03/27/20 13:51 Lidocaine 5% Patch TD 1 patch 1300 FLORI Administration Melatonin 3 mg 03/22/20 22:31 03/24/20 20:07 Melatonin 3 Mg Tab PO 3 mg HS PRN Administration Insomnia Miscellaneous Medication 1 each 03/26/20 01:00 03/28/20 00:35 Lidocaine Patch Removal 1 Each TOP 1 each 0100 FLORI Administration Morphine Sulfate 2 mg 03/23/20 02:16 03/25/20 15:42 Morphine 2 Mg/Ml Vial SLOW IVP 2 mg Q4H PRN Administration severe pain 4-10 Nifedipine 90 mg 03/28/20 09:00 03/28/20 09:06 Nifedipine Xl 90 Mg Tab PO 90 mg DAILY FLORI Administration Pantoprazole Sodium 40 mg 03/23/20 09:00 03/28/20 08:58 Pantoprazole 40 Mg Tab PO 40 mg DAILY FLORI Administration Polyethylene Glycol 17 gm 03/28/20 09:00 03/28/20 09:08 Polyethylene Glycol 3350 17 Gm Packet PO 17 gm DAILY FLORI Administration Multivit/Folic Acid/Iron 1 tab 03/28/20 09:00 03/28/20 08:59 Vitamin 1 Tab PO 1 tab DAILY FLORI Administration Sodium Chloride 10 ml 03/22/20 20:41 03/24/20 04:02 Flush - Normal Saline 10 Ml Syringe IVF 10 ml PRN PRN Administration Saline Flush Tramadol HCl 50 mg 03/23/20 16:54 03/28/20 08:59 Tramadol Hcl 50 Mg Tab PO 50 mg Q4H PRN Administration Moderate Pain (4-6) Trazodone HCl 50 mg 03/22/20 22:32 03/26/20 20:48 Trazodone Hcl 50 Mg Tab PO 50 mg HS PRN Administration Pain Hospitalist Exam Vitals: Vital Signs (12 hours) Temp Pulse Resp BP BP Pulse Ox 03/28/20 09:06 69 152/70 H 03/28/20 09:03 69 152/70 H 03/28/20 08:00 98.4 F 69 18 152/70 H 96 03/28/20 03:11 97.9 F 71 16 134/62 93 L Weight Admit Weight 176 lb 5.917 oz Weight 184 lb 5 oz Neck: supple Heart: RRR Respiratory: no wheezes, no rales Gastrointestinal: soft, non-tender, normal bowel sounds Extremities: 1+ LE edema Skin: normal turgor Hosp A/P - Plan (1) Renal failure (ARF), acute on chronic Code(s): N17.9 - ACUTE KIDNEY FAILURE, UNSPECIFIED; N18.9 - CHRONIC KIDNEY DISEASE, UNSPECIFIED Status: Acute (2) Chronic pain disorder Code(s): G89.4 - CHRONIC PAIN SYNDROME Status: Chronic (3) Dyslipidemia Code(s): E78.5 - HYPERLIPIDEMIA, UNSPECIFIED Status: Acute (4) Hypertension Code(s): I10 - ESSENTIAL (PRIMARY) HYPERTENSION Status: Chronic Qualifiers: Hypertension type: essential hypertension Qualified Code(s): I10 - Essential (primary) hypertension (5) Obesity (BMI 30.0-34.9) Code(s): E66.9 - OBESITY, UNSPECIFIED Status: Chronic (6) Weakness Code(s): R53.1 - WEAKNESS Status: Chronic - Plan acute on chronic renal failure - sent by [facility] due to renal failure - h/d schedule for today for the 1st time - gen surg consulted, s/p h/d cath placement on 03/23/2019 - nephro on case - case operator on case for oupt h/d seat htn / hld - continue home meds - adjust as necessary will get PT to see her 03/26 PT recommended assisted versus inpatient. We will put an inpatient consult for rehab. Family and patient updated. We will continue to monitor. Patient's lower back pain has improved. Possible will undergo fistula placement on Sunday. 03/27 patient's labs stable will increase Procardia to 90 mg daily. Waiting for placement. Possible surgery on Tuesday 03/28 will add prn meds for constipation. possible fistula placement on sunday.
[2020-03-28] MEDS: hydrALAZINE 20 MG/ML VIAL SLOW IVP PRN (11:36)
[2020-03-28] MEDS: Lidocaine 5% Patch TD SCH (11:42)
[2020-03-28] MEDS ORDERED: Heparin 10,000 UNITS/ 10 ML VIAL ONE (12:00)
[2020-03-28] MEDS: HYDROcodone/Acetaminophen 5/325 mg Tablet PO PRN (12:55)
[2020-03-28] MEDS: traZODone HCl 50 MG TAB PO PRN (21:00)
[2020-03-28] MEDS: Senokot S 8.6-50 MG TAB PO SCH (21:00)
[2020-03-28] MEDS: Melatonin 3 MG TAB PO PRN (21:00)
[2020-03-29] MEDS: Transdermal Patch Removal TOP SCH (03:00)
[2020-03-29 04:33] LABS: #Basophils 0.1 thou/uL (0.0-0.2); #Eosinphils 0.3 thou/uL (0.0-0.7); #Lymphocytes 2.7 thou/uL (1.20-3.40); #Monocytes 0.7 thou/uL (0.11-0.59); #Neutrophils 2.7 thou/uL (1.40-6.50); %Eosinophils 4.9 % (0.0-10.0); %Lymphocytes 41.4 % (21.0-51.0); %Monocytes 10.2 % (0.0-10.0); %Neutrophils 42.4 % (42.0-75.0); Hemoglobin 10.7 g/dL (12.0-16.0); Mean Corpuscular HGB CONC 31.7 g/dL (32.0-36.0); Mean Corpuscular Hemoglobin 29.9 pg (27.0-31.0); Mean Corpuscular Volume 94.1 fL (78.0-98.0); Mean Platelet Volume 6.8 fL (7.4-10.4); Platelet Count 214 thou/uL (130-400); RBC Distribution Width 14.5 % (11.5-14.5); Red Blood Cell (RBC) Count 3.57 mill/uL (4.20-5.40); White Blood Cell (WBC) Count 6.4 thou/uL (4.8-10.8)
[2020-03-29 04:51] LABS: Anion Gap 12 mmol/L (10-20); BUN (Urea Nitrogen) 17 mg/dL (9.8-20.1); Calc. Creatinine Clearance 25 mL/min (70-130); Calcium 8.3 mg/dL (7.8-10.44); Carbon Dioxide 27 mmol/L (23-31); Chloride 102 mmol/L (98-107); Glucose 87 mg/dL (83-110); Magnesium 2.1 mg/dL (1.6-2.6); Potassium 4.7 mmol/L (3.5-5.1); Sodium 136 mmol/L (136-145)
[2020-03-29] MEDS ORDERED: Levofloxacin 500 mg/D5W 100 ml Premix Bag ONE (09:04)
[2020-03-29] MEDS ORDERED: Glycopyrrolate 0.2 MG/ML 5 ML SYRINGE ONE (09:19)
[2020-03-29] MEDS ORDERED: PROPOFOL 200 MG/20 ML VIAL ONE (09:19)
[2020-03-29] MEDS ORDERED: Bupivacaine HCl 0.5%/Epinephrine 1:200,000/PF 30 ml Vial ONE (09:19)
[2020-03-29] MEDS ORDERED: ePHEDrine 50 MG/ML VIAL ONE (09:19)
[2020-03-29] MEDS: Heparin 5,000 UNITS/ML VIAL SC SCH ×2 (09:27→20:30)
[2020-03-29] MEDS ORDERED: Bupivacaine PF 0.5% 30 ML VIAL ONE (10:00)
[2020-03-29] MEDS ORDERED: Protamine Sulfate 50 MG/5 ML VIAL ONE (10:00)
[2020-03-29] MEDS ORDERED: Heparin 5,000 UNITS/ML VIAL ONE (10:00)
[2020-03-29] MEDS ORDERED: EPINEPHrine 1 MG/ML AMP ONE (10:01)
[2020-03-29] MEDS ORDERED: Lidocaine 2% PF 5 ML VIAL ONE (10:01)
[2020-03-29] MEDS ORDERED: EPINEPHrine 1 MG/10 ML Abboject SYRINGE ONE (10:01)
[2020-03-29] MEDS ORDERED: Propofol 1,000 MG/100 ML VIAL IV ONE (10:17)
[2020-03-29] MEDS ORDERED: Fentanyl 100 MCG/2 ML VIAL ONE (10:17)
[2020-03-29] MEDS: Ferrous Sulfate 325 MG TAB PO SCH (13:25)
[2020-03-29] MEDS: NIFEdipine XL 90 MG TAB PO SCH (13:25)
[2020-03-29] MEDS: Gabapentin 300 MG CAP PO SCH ×2 (13:26→20:30)
[2020-03-29] MEDS: hydrALAZINE 25 MG TAB PO SCH ×3 (13:27→20:30)
[2020-03-29] MEDS: Cholecalciferol 1,000 UNITS (25 MCG) TAB PO SCH (13:27)
[2020-03-29] MEDS: Polyethylene Glycol 3350 17 GM Packet PO SCH (13:28)
[2020-03-29] MEDS: FLUoxetine HCl 20 MG CAP PO SCH (13:28)
[2020-03-29] MEDS: Prenatal Vitamin 1 TAB PO SCH (13:28)
[2020-03-29] MEDS: Senokot S 8.6-50 MG TAB PO SCH ×2 (13:28→20:30)
[2020-03-29] MEDS: Famotidine 20 MG TAB PO SCH (13:29)
--- NOTE | 2020-03-29 14:28 | PDOC.HOSPP ---
- Subjective Encounter Date: 03/29/20 Encounter Time: 11:45 Subjective: pt up in bed no complains - Objective Vital Signs & Weight: Vital Signs (12 hours) Temp Pulse Resp BP Pulse Ox 03/29/20 13:10 97.4 F L 67 18 178/79 H 97 03/29/20 07:02 97.6 F 68 14 146/75 H 97 03/29/20 03:50 98.1 F 74 16 181/74 H 94 L Weight Admit Weight 176 lb 5.917 oz Weight 194 lb 9.6 oz I&O: 03/28/20 03/29/20 03/30/20 06:59 06:59 06:59 Intake Total 830 480 Output Total 800 1825 Balance 30 -1345 Result Diagrams: 03/29/20 04:15 03/29/20 04:15 Hospitalist ROS - Review of Systems Respiratory: denies: cough, dry, shortness of breath, hemoptysis, SOB with excertion, pleuritic pain, sputum, wheezing, other Cardiovascular: denies: chest pain, palpitations, orthopnea, paroxysmal noc. dyspnea, edema, light headedness, other Gastrointestinal: denies: nausea, vomiting, abdominal pain, diarrhea, constipation, melena, hematochezia, other - Medication Medications: Active Medications Generic Name Dose Route Start Last Admin Trade Name Freq PRN Reason Stop Dose Admin Hydrocodone Bitart/Acetaminophen 1 tab 03/23/20 02:16 03/28/20 12:55 Hydrocodone/Acetaminophen 5/325 Mg Tablet PO 1 tab Q4H PRN Administration Moderate Pain (4-6) Bisacodyl 10 mg 03/28/20 11:00 03/28/20 11:35 Bisacodyl 5 Mg Tab PO 10 mg DAILYPRN PRN Administration Constipation Cholecalciferol 2,000 units 03/28/20 09:00 03/29/20 13:27 Cholecalciferol 1,000 Units (25 Mcg) Tab PO 2,000 units DAILY FLORI Administration Clonidine 0.1 mg 03/23/20 02:16 03/24/20 05:22 Clonidine 0.1 Mg Tab PO 0.1 mg BID PRN Administration SBP > 160 use second Famotidine 20 mg 03/23/20 09:00 03/29/20 13:29 Famotidine 20 Mg Tab PO 20 mg QAM FLORI Administration Ferrous Sulfate 325 mg 03/28/20 08:00 03/29/20 13:25 Ferrous Sulfate 325 Mg Tab PO 325 mg QAM-WM FLORI Administration Fluoxetine HCl 40 mg 03/23/20 09:00 03/29/20 13:28 Fluoxetine Hcl 20 Mg Cap PO 40 mg DAILY FLORI Administration Gabapentin 300 mg 03/26/20 09:00 03/29/20 13:26 Gabapentin 300 Mg Cap PO 300 mg BID FLORI Administration Heparin Sodium (Porcine) 5,000 units 03/23/20 09:00 03/29/20 09:27 Heparin 5,000 Units/Ml Vial SC Not Given BID FLORI Hydralazine HCl 50 mg 03/23/20 09:00 03/29/20 13:34 Hydralazine 25 Mg Tab PO Not Given TID FLORI Hydralazine HCl 10 mg 03/23/20 02:16 03/28/20 11:36 Hydralazine 20 Mg/Ml Vial SLOW IVP 10 mg Q6H PRN Administration SBP GREATER THAN 160 Lidocaine 1 patch 03/25/20 13:00 03/28/20 11:42 Lidocaine 5% Patch TD 1 patch 1300 FLORI Administration Melatonin 3 mg 03/22/20 22:31 03/28/20 21:00 Melatonin 3 Mg Tab PO 3 mg HS PRN Administration Insomnia Miscellaneous Medication 1 each 03/26/20 01:00 03/29/20 03:00 Lidocaine Patch Removal 1 Each TOP Not Given 0100 FLORI Morphine Sulfate 2 mg 03/23/20 02:16 03/25/20 15:42 Morphine 2 Mg/Ml Vial SLOW IVP 2 mg Q4H PRN Administration severe pain 4-10 Nifedipine 90 mg 03/28/20 09:00 03/29/20 13:25 Nifedipine Xl 90 Mg Tab PO 90 mg DAILY FLORI Administration Pantoprazole Sodium 40 mg 03/23/20 09:00 03/29/20 13:27 Pantoprazole 40 Mg Tab PO 40 mg DAILY FLORI Administration Polyethylene Glycol 17 gm 03/28/20 09:00 03/29/20 13:28 Polyethylene Glycol 3350 17 Gm Packet PO 17 gm DAILY FLORI Administration Multivit/Folic Acid/Iron 1 tab 03/28/20 09:00 03/29/20 13:28 Vitamin 1 Tab PO 1 tab DAILY FLORI Administration Senna/Docusate Sodium 1 tab 03/28/20 21:00 03/29/20 13:28 Senokot S 8.6-50 Mg Tab PO 1 tab BID FLORI Administration Sodium Chloride 10 ml 03/22/20 20:41 03/24/20 04:02 Flush - Normal Saline 10 Ml Syringe IVF 10 ml PRN PRN Administration Saline Flush Tramadol HCl 50 mg 03/23/20 16:54 03/28/20 22:00 Tramadol Hcl 50 Mg Tab PO 50 mg Q4H PRN Administration Moderate Pain (4-6) Trazodone HCl 50 mg 03/22/20 22:32 03/28/20 21:00 Trazodone Hcl 50 Mg Tab PO 50 mg HS PRN Administration Pain Hospitalist Exam Vitals: Vital Signs (12 hours) Temp Pulse Resp BP Pulse Ox 03/29/20 13:10 97.4 F L 67 18 178/79 H 97 03/29/20 07:02 97.6 F 68 14 146/75 H 97 03/29/20 03:50 98.1 F 74 16 181/74 H 94 L Weight Admit Weight 176 lb 5.917 oz Weight 194 lb 9.6 oz ENT: normocephalic atraumatic Neck: supple Heart: RRR Respiratory: no wheezes, no rales Gastrointestinal: soft, non-distended, normal bowel sounds Extremities: 1+ LE edema Hosp A/P - Plan (1) Renal failure (ARF), acute on chronic Code(s): N17.9 - ACUTE KIDNEY FAILURE, UNSPECIFIED; N18.9 - CHRONIC KIDNEY DISEASE, UNSPECIFIED Status: Acute (2) Chronic pain disorder Code(s): G89.4 - CHRONIC PAIN SYNDROME Status: Chronic (3) Dyslipidemia Code(s): E78.5 - HYPERLIPIDEMIA, UNSPECIFIED Status: Acute (4) Hypertension Code(s): I10 - ESSENTIAL (PRIMARY) HYPERTENSION Status: Chronic Qualifiers: Hypertension type: essential hypertension Qualified Code(s): I10 - Essential (primary) hypertension (5) Obesity (BMI 30.0-34.9) Code(s): E66.9 - OBESITY, UNSPECIFIED Status: Chronic (6) Weakness Code(s): R53.1 - WEAKNESS Status: Chronic - Plan acute on chronic renal failure - [facility] - h/d schedule for today for the 1st time - gen surg consulted, s/p h/d cath placement on 03/23/2019 - nephro on case - nurse case management on case for oupt h/d seat htn / hld - continue home meds - adjust as necessary will get PT to see her 03/26 PT recommended senior care versus inpatient. We will put an inpatient consult for rehab. Family and patient updated. We will continue to monitor. Patient's lower back pain has improved. Possible will undergo fistula placement on Sunday. 03/27 patient's labs stable will increase Procardia to 90 mg daily. Waiting for placement. Possible surgery on Tuesday 03/28 will add prn meds for constipation. possible fistula placement on sunday. 03/29 pt up in bed s/p fistula placement. possible discharge when ok with surgery.
--- NOTE | 2020-03-29 15:30 | OP ---
DATE OF PROCEDURE: 03/29/2020 PREOPERATIVE DIAGNOSES: End-stage renal disease, poor veins by ultrasound vein mapping. POSTOPERATIVE DIAGNOSES: End-stage renal disease, poor veins by ultrasound vein mapping. PROCEDURES PERFORMED: Left arm primary AV fistula, perforating branch antecubital vein, outflow was basilic vein. Note, the patient will need a basilic vein transposition fistula, most likely may be needing a fistulogram prior to may need a prosthetic graft if this does not maintain patency. ANESTHESIA: Regional, TIVA. DESCRIPTION OF PROCEDURE: The patient was taken to the operating room, where under regional anesthesia, left upper extremity was prepared with ChloraPrep and draped in routine fashion. Incision made in the proximal volar forearm longitudinally, carried down through skin and subcutaneous tissue, cephalic vein, antecubital vein, proximal radial artery dissected free. The patient was given 6000 units of heparin intravenously. Perforating branch of the cephalic vein dissected free. Branches were divided between 4-0 silk ties and clips and spatulated over branch points, interrogated with coronary dilators, passing coronary dilators from 2 mm to 4 mm coronary dilator out the basilic vein outflow. Cephalic vein outflow was essentially nonexistent. There was a small collateral vein that was left for future anastomosis if able to transpose. The proximal radial artery was clamped proximally and distally. Longitudinal arteriotomy made sharply for 2.5 cm anastomosis to 3 cm anastomosis between the end perforating branch antecubital vein to the proximal radial artery with continuous suture of 6-0 Prolene. Branches were ligated with 4-0 silk ties and vascular clamps released. There was good Doppler signal in the outflow tract. Good hemostasis noted. Subcutaneous tissue was approximated with 3-0 Monocryl, skin with subdermal 4-0 Monocryl and [place] glue applied. The patient had been given protamine 25 mg intravenously. Job ID: [id number]
[2020-03-29] MEDS: traZODone HCl 50 MG TAB PO PRN (16:22)
[2020-03-29] MEDS: Lidocaine 5% Patch TD SCH (16:29)
[2020-03-29] MEDS: traMADol HCl 50 MG TAB PO PRN (17:55)
[2020-03-29] MEDS: Melatonin 3 MG TAB PO PRN (20:30)
[2020-03-29] MEDS: Acetaminophen 500 MG TAB PO PRN (20:30)
[2020-03-29] MEDS: Morphine 2 MG/ML VIAL SLOW IVP PRN (20:30)
[2020-03-30] MEDS: Transdermal Patch Removal TOP SCH (01:07)
[2020-03-30 06:12] LABS: Bilirubin Negative (Negative); Blood, Urine Negative (Negative); Clarity Clear (Clear); Glucose, Urine (Dipstick) 30 mg/dL (Negative); Ketone, Urine Negative (Negative); Leukocyte 25 Leu/uL (Negative); Nitrite Negative (Negative); Protein, Urine (Dipstick) 200 mg/dL (Neg-Trace); RBC/HPF None Seen HPF (0-3); Specific Gravity, Urine 1.006 (1.002-1.036); Squamous Epithelial 0-3 HPF (0-3); Urobilinogen Normal mg/dL (Less than 2); pH, Urine 7.5 (5.0-9.0)
[2020-03-30 06:13] LABS: Bacteria/HPF 1+ HPF (None Seen)
[2020-03-30 06:14] LABS: Urine Culture Reflex Yes Yes
[2020-03-30] MEDS: traMADol HCl 50 MG TAB PO PRN ×2 (09:29→21:41)
[2020-03-30] MEDS: Acetaminophen 500 MG TAB PO PRN ×2 (09:30→21:40)
[2020-03-30] MEDS ORDERED: Heparin 10,000 UNITS/ 10 ML VIAL ONE (11:59)
[2020-03-30] MEDS: Heparin 5,000 UNITS/ML VIAL SC SCH ×2 (12:29→21:42)
[2020-03-30] MEDS: hydrALAZINE 25 MG TAB PO SCH ×3 (12:30→21:41)
[2020-03-30] MEDS: Cholecalciferol 1,000 UNITS (25 MCG) TAB PO SCH (12:45)
[2020-03-30] MEDS ORDERED: CEFAZOLIN 2 GM in Premix Bag 1 BAG IVPB SCH (12:45)
[2020-03-30] MEDS: Ferrous Sulfate 325 MG TAB PO SCH (12:45)
[2020-03-30] MEDS: Gabapentin 300 MG CAP PO SCH ×2 (12:46→21:41)
[2020-03-30] MEDS: Famotidine 20 MG TAB PO SCH (12:46)
[2020-03-30] MEDS: NIFEdipine XL 90 MG TAB PO SCH (12:47)
[2020-03-30] MEDS: Prenatal Vitamin 1 TAB PO SCH (12:48)
[2020-03-30] MEDS: FLUoxetine HCl 20 MG CAP PO SCH (12:49)
[2020-03-30] MEDS: Senokot S 8.6-50 MG TAB PO SCH ×2 (12:49→21:41)
[2020-03-30] MEDS: Lidocaine 5% Patch TD SCH (12:50)
--- NOTE | 2020-03-30 13:30 | PRG ---
DATE OF SERVICE: 03/30/2020 Marilynn Betancourt yesterday had a left arm fistula. The cephalic vein was occluded. Outflow of the basilic vein seemed to be good, was very large, but this morning, she does not have a thrill or bruit in her left arm. She will need a new access she is here to avoid repeat COVID testing. We would plan the left upper arm graft tomorrow. She understands risks and benefits, consents. Job ID: [id number]
[2020-03-30] MEDS: Polyethylene Glycol 3350 17 GM Packet PO SCH (14:49)
[2020-03-31] MEDS: Transdermal Patch Removal TOP SCH (07:49)
[2020-03-31] MEDS ORDERED: Bupivacaine HCl 0.5%/Epinephrine 1:200,000/PF 30 ml Vial ONE (09:00)
[2020-03-31] MEDS ORDERED: Levofloxacin 500 mg/D5W 100 ml Premix Bag ONE (09:43)
[2020-03-31] MEDS ORDERED: Lidocaine 2% PF 5 ML VIAL ONE (12:42)
[2020-03-31] MEDS ORDERED: Protamine Sulfate 50 MG/5 ML VIAL ONE (12:42)
[2020-03-31] MEDS ORDERED: Bupivacaine PF 0.5% 30 ML VIAL ONE (12:42)
[2020-03-31] MEDS ORDERED: EPINEPHrine 1 MG/ML AMP ONE (12:42)
[2020-03-31] MEDS ORDERED: Heparin 5,000 UNITS/ML VIAL ONE (12:42)
[2020-03-31] MEDS ORDERED: Fentanyl 100 MCG/2 ML VIAL ONE (12:44)
[2020-03-31] MEDS ORDERED: Midazolam HCl 2 mg/2 ml Vial ONE (12:47)
[2020-03-31] MEDS ORDERED: Ketamine 50 MG/ML (10ML VIAL) ONE (12:48)
[2020-03-31] MEDS ORDERED: Propofol 500 MG/50 ML VIAL ONE (12:48)
[2020-03-31] MEDS ORDERED: Promethazine HCl 25 MG/ML VIAL IM PRN (14:56)
[2020-03-31] MEDS ORDERED: Ondansetron HCl/PF 4 MG/2 ML Vial IVP PRN (14:56)
[2020-03-31] MEDS ORDERED: Promethazine HCl 25 MG/ML VIAL SLOW IVP PRN (14:56)
--- NOTE | 2020-03-31 15:07 | OP ---
DATE OF PROCEDURE: 03/31/2020 PREOPERATIVE DIAGNOSES: 1. End-stage renal disease. 2. Thrombosed left arm arteriovenous fistula. 3. Inadequate cephalic vein in left arm. 4. Poor veins by ultrasound vein mapping. POSTOPERATIVE DIAGNOSES: 1. End-stage renal disease. 2. Thrombosed left arm arteriovenous fistula. 3. Inadequate cephalic vein in left arm. 4. Poor veins by ultrasound vein mapping. PROCEDURE PERFORMED: Left upper arm tapered PTFE graft, 4T07. ANESTHESIA: Regional and TIVA and local with 0.5% Marcaine 30 mL, mixed with 1% Xylocaine with epinephrine 20 mL, 10 mL mixture used to supplement the block. INDICATIONS: The patient had attempted fistula placement, had what seemed to be a good basilic vein, but it thrombosed. Plan is for left upper arm graft. DESCRIPTION OF PROCEDURE: The patient was taken to the operating room where under regional anesthesia and intravenous sedation, left upper extremity was prepared with ChloraPrep and draped in routine fashion. Incision was made over the brachial artery above the antecubital fossa on the left axilla, carried down to skin and subcutaneous tissue, dissecting the brachial artery and a large axillary vein respectfully, controlled them with silastic vessel loops. A Mickie Wick tunneler was used to tunnel the tapered graft between the 2 incisions, placing the 4 mm end near the brachial artery. Brachial artery was of good quality. The patient given 6000 units of heparin intravenously. After adequate circulation time, the 4-mm end of the prosthetic graft anastomosed to the brachial artery and the 7 mm end anastomosed to the axillary vein. Stay sutures used to keep the vein open. Silastic [place] loops used for venous control. After completing both anastomosis, vascular clamps were released and there was good flow in the fistula. The artery was of good quality. Good hemostasis noted in each site of the anastomosis. Good flow noted in the axillary vein. Axillary vein was of excellent quality. A 3 cm anastomosis was made to the axillary vein and a 2.5 cm to the brachial artery. Good hemostasis noted. The patient was given protamine by intravenous anesthesia. Subcutaneous tissue was approximated with 3-0 Monocryl, skin with subdermal 4-0 Monocryl, and [place] glue applied. The patient tolerated the procedure well. Job ID: [id number]
[2020-03-31] MEDS: Heparin 5,000 UNITS/ML VIAL SC SCH ×2 (16:15→21:01)
[2020-03-31] MEDS: Gabapentin 300 MG CAP PO SCH ×2 (16:15→21:00)
[2020-03-31] MEDS: hydrALAZINE 25 MG TAB PO SCH ×3 (16:15→21:00)
[2020-03-31] MEDS: Senokot S 8.6-50 MG TAB PO SCH ×2 (16:16→21:01)
[2020-03-31] MEDS: Lidocaine 5% Patch TD SCH (16:16)
[2020-03-31] MEDS: Famotidine 20 MG TAB PO SCH (16:18)
[2020-03-31] MEDS: Ferrous Sulfate 325 MG TAB PO SCH (16:18)
[2020-03-31] MEDS: FLUoxetine HCl 20 MG CAP PO SCH (16:18)
[2020-03-31] MEDS: Prenatal Vitamin 1 TAB PO SCH (16:18)
[2020-03-31] MEDS: Cholecalciferol 1,000 UNITS (25 MCG) TAB PO SCH (16:18)
[2020-03-31] MEDS: NIFEdipine XL 90 MG TAB PO SCH (16:19)
[2020-03-31] MEDS: Polyethylene Glycol 3350 17 GM Packet PO SCH (16:20)
--- NOTE | 2020-03-31 17:13 | PDOC.HOSPP ---
- Subjective Encounter Date: 03/30/20 Encounter Time: 09:45 Subjective: Patient up in bed no complaints. - Objective Vital Signs & Weight: Vital Signs (12 hours) Temp Pulse Resp BP Pulse Ox 03/31/20 15:55 97.6 F 66 17 188/86 H 95 03/31/20 07:10 98.3 F 70 16 178/81 H 94 L Weight Admit Weight 176 lb 5.917 oz Weight 187 lb 9.6 oz I&O: 03/30/20 03/31/20 04/01/20 06:59 06:59 06:59 Intake Total 1120 960 Output Total 1000 0 Balance 120 960 Result Diagrams: 03/29/20 04:15 03/29/20 04:15 Hospitalist ROS - Review of Systems Respiratory: denies: cough, dry, shortness of breath, hemoptysis, SOB with excertion, pleuritic pain, sputum, wheezing, other Cardiovascular: denies: chest pain, palpitations, orthopnea, paroxysmal noc. dyspnea, edema, light headedness, other Gastrointestinal: denies: nausea, vomiting, abdominal pain, diarrhea, constipation, melena, hematochezia, other Genitourinary: denies: dysuria, frequency, incontinence, hematuria, retention, other - Medication Medications: Active Medications Generic Name Dose Route Start Last Admin Trade Name Freq PRN Reason Stop Dose Admin Acetaminophen 1,000 mg 03/23/20 16:54 03/30/20 21:40 Acetaminophen 500 Mg Tab PO 1,000 mg Q6H PRN Administration Moderate to Severe Pain (6-10) Hydrocodone Bitart/Acetaminophen 1 tab 03/23/20 02:16 03/28/20 12:55 Hydrocodone/Acetaminophen 5/325 Mg Tablet PO 1 tab Q4H PRN Administration Moderate Pain (4-6) Bisacodyl 10 mg 03/28/20 11:00 03/28/20 11:35 Bisacodyl 5 Mg Tab PO 10 mg DAILYPRN PRN Administration Constipation Cholecalciferol 2,000 units 03/28/20 09:00 03/31/20 16:18 Cholecalciferol 1,000 Units (25 Mcg) Tab PO 2,000 units DAILY FLORI Administration Clonidine 0.1 mg 03/23/20 02:16 03/24/20 05:22 Clonidine 0.1 Mg Tab PO 0.1 mg BID PRN Administration SBP > 160 use second Famotidine 20 mg 03/23/20 09:00 03/31/20 16:18 Famotidine 20 Mg Tab PO 20 mg QAM FLORI Administration Ferrous Sulfate 325 mg 03/28/20 08:00 03/31/20 16:18 Ferrous Sulfate 325 Mg Tab PO 325 mg QAM-WM FLORI Administration Fluoxetine HCl 40 mg 03/23/20 09:00 03/31/20 16:18 Fluoxetine Hcl 20 Mg Cap PO 40 mg DAILY FLORI Administration Gabapentin 300 mg 03/26/20 09:00 03/31/20 16:15 Gabapentin 300 Mg Cap PO Not Given BID [facility] Heparin Sodium (Porcine) 5,000 units 03/23/20 09:00 03/31/20 16:15 Heparin 5,000 Units/Ml Vial SC Not Given BID [facility] Hydralazine HCl 50 mg 03/23/20 09:00 03/31/20 16:18 Hydralazine 25 Mg Tab PO 50 mg TID FLORI Administration Hydralazine HCl 10 mg 03/23/20 02:16 03/28/20 11:36 Hydralazine 20 Mg/Ml Vial SLOW IVP 10 mg Q6H PRN Administration SBP GREATER THAN 160 Lidocaine 1 patch 03/25/20 13:00 03/31/20 16:16 Lidocaine 5% Patch TD Not Given 1300 [facility] Melatonin 3 mg 03/22/20 22:31 03/29/20 20:30 Melatonin 3 Mg Tab PO 3 mg HS PRN Administration Insomnia Miscellaneous Medication 1 each 03/26/20 01:00 03/31/20 07:49 Lidocaine Patch Removal 1 Each TOP Not Given 0100 [facility] Morphine Sulfate 2 mg 03/23/20 02:16 03/29/20 20:30 Morphine 2 Mg/Ml Vial SLOW IVP 2 mg Q4H PRN Administration severe pain 4-10 Nifedipine 90 mg 03/28/20 09:00 03/31/20 16:19 Nifedipine Xl 90 Mg Tab PO 90 mg DAILY [facility] Administration Pantoprazole Sodium 40 mg 03/23/20 09:00 03/31/20 16:19 Pantoprazole 40 Mg Tab PO 40 mg DAILY FLORI Administration Polyethylene Glycol 17 gm 03/28/20 09:00 03/31/20 16:20 Polyethylene Glycol 3350 17 Gm Packet PO Not Given DAILY [facility] Multivit/Folic Acid/Iron 1 tab 03/28/20 09:00 03/31/20 16:18 Vitamin 1 Tab PO 1 tab DAILY FLORI Administration Senna/Docusate Sodium 1 tab 03/28/20 21:00 03/31/20 16:16 Senokot S 8.6-50 Mg Tab PO Not Given BID FLORI Sodium Chloride 10 ml 03/22/20 20:41 03/24/20 04:02 Flush - Normal Saline 10 Ml Syringe IVF 10 ml PRN PRN Administration Saline Flush Tramadol HCl 50 mg 03/23/20 16:54 03/30/20 21:41 Tramadol Hcl 50 Mg Tab PO 50 mg Q4H PRN Administration Moderate Pain (4-6) Trazodone HCl 50 mg 03/22/20 22:32 03/29/20 16:22 Trazodone Hcl 50 Mg Tab PO 50 mg HS PRN Administration Pain Hospitalist Exam Vitals: Vital Signs (12 hours) Temp Pulse Resp BP Pulse Ox 03/31/20 15:55 97.6 F 66 17 188/86 H 95 03/31/20 07:10 98.3 F 70 16 178/81 H 94 L Weight Admit Weight 176 lb 5.917 oz Weight 187 lb 9.6 oz Neck: supple Heart: RRR, no murmur, no gallops Respiratory: no wheezes, no rales Gastrointestinal: soft, non-tender, normal bowel sounds Extremities: 1+ LE edema Hosp A/P - Plan (1) Renal failure (ARF), acute on chronic Code(s): N17.9 - ACUTE KIDNEY FAILURE, UNSPECIFIED; N18.9 - CHRONIC KIDNEY DISEASE, UNSPECIFIED Status: Acute (2) Chronic pain disorder Code(s): G89.4 - CHRONIC PAIN SYNDROME Status: Chronic (3) Dyslipidemia Code(s): E78.5 - HYPERLIPIDEMIA, UNSPECIFIED Status: Acute (4) Hypertension Code(s): I10 - ESSENTIAL (PRIMARY) HYPERTENSION Status: Chronic Qualifiers: Hypertension type: essential hypertension Qualified Code(s): I10 - Essential (primary) hypertension (5) Obesity (BMI 30.0-34.9) Code(s): E66.9 - OBESITY, UNSPECIFIED Status: Chronic (6) Weakness Code(s): R53.1 - WEAKNESS Status: Chronic - Plan acute on chronic renal failure - sent by [facility] due to renal failure - h/d schedule for today for the 1st time - gen surg consulted, s/p h/d cath placement on 03/23/2019 - nephro on case - 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 We will put an inpatient consult for rehab. Family and patient updated. We will continue to monitor. Patient's lower back pain has improved. Possible will undergo fistula placement on Sunday. 03/27 patient's labs stable will increase Procardia to 90 mg daily. Waiting for placement. Possible surgery on Tuesday 03/28 will add prn meds for constipation. possible fistula placement on sunday. 03/29 pt up in bed s/p fistula placement. possible discharge when ok with surgery. 03/30 patient going for another procedure tomorrow for her fistula. We will continue to monitor we will discharge as soon as okay with surgery.
--- NOTE | 2020-03-31 17:17 | PDOC.HOSPP ---
- Subjective Encounter Date: 03/31/20 Encounter Time: 16:00 Subjective: Patient up in bed underwent a procedure for thrombosed left arm AV fistula. - Objective Vital Signs & Weight: Vital Signs (12 hours) Temp Pulse Resp BP Pulse Ox 03/31/20 15:55 97.6 F 66 17 188/86 H 95 03/31/20 07:10 98.3 F 70 16 178/81 H 94 L Weight Admit Weight 176 lb 5.917 oz Weight 187 lb 9.6 oz I&O: 03/30/20 03/31/20 04/01/20 06:59 06:59 06:59 Intake Total 1120 960 Output Total 1000 0 Balance 120 960 Result Diagrams: 03/29/20 04:15 03/29/20 04:15 Hospitalist ROS - Review of Systems Cardiovascular: denies: chest pain, palpitations, orthopnea, paroxysmal noc. dyspnea, edema, light headedness, other Gastrointestinal: denies: nausea, vomiting, abdominal pain, diarrhea, constipation, melena, hematochezia, other Genitourinary: denies: dysuria, frequency, incontinence, hematuria, retention, other - Medication Medications: Active Medications Generic Name Dose Route Start Last Admin Trade Name Freq PRN Reason Stop Dose Admin Acetaminophen 1,000 mg 03/23/20 16:54 03/30/20 21:40 Acetaminophen 500 Mg Tab PO 1,000 mg Q6H PRN Administration Moderate to Severe Pain (6-10) Hydrocodone Bitart/Acetaminophen 1 tab 03/23/20 02:16 03/28/20 12:55 Hydrocodone/Acetaminophen 5/325 Mg Tablet PO 1 tab Q4H PRN Administration Moderate Pain (4-6) Bisacodyl 10 mg 03/28/20 11:00 03/28/20 11:35 Bisacodyl 5 Mg Tab PO 10 mg DAILYPRN PRN Administration Constipation Cholecalciferol 2,000 units 03/28/20 09:00 03/31/20 16:18 Cholecalciferol 1,000 Units (25 Mcg) Tab PO 2,000 units DAILY FLORI Administration Clonidine 0.1 mg 03/23/20 02:16 03/24/20 05:22 Clonidine 0.1 Mg Tab PO 0.1 mg BID PRN Administration SBP > 160 use second Famotidine 20 mg 03/23/20 09:00 03/31/20 16:18 Famotidine 20 Mg Tab PO 20 mg QAM FLORI Administration Ferrous Sulfate 325 mg 03/28/20 08:00 03/31/20 16:18 Ferrous Sulfate 325 Mg Tab PO 325 mg QAM-WM FLORI Administration Fluoxetine HCl 40 mg 03/23/20 09:00 03/31/20 16:18 Fluoxetine Hcl 20 Mg Cap PO 40 mg DAILY FLORI Administration Gabapentin 300 mg 03/26/20 09:00 03/31/20 16:15 Gabapentin 300 Mg Cap PO Not Given BID FLORI Heparin Sodium (Porcine) 5,000 units 03/23/20 09:00 03/31/20 16:15 Heparin 5,000 Units/Ml Vial SC Not Given BID [facility] Hydralazine HCl 50 mg 03/23/20 09:00 03/31/20 16:18 Hydralazine 25 Mg Tab PO 50 mg TID FLORI Administration Hydralazine HCl 10 mg 03/23/20 02:16 03/28/20 11:36 Hydralazine 20 Mg/Ml Vial SLOW IVP 10 mg Q6H PRN Administration SBP GREATER THAN 160 Lidocaine 1 patch 03/25/20 13:00 03/31/20 16:16 Lidocaine 5% Patch TD Not Given 1300 [facility] Melatonin 3 mg 03/22/20 22:31 03/29/20 20:30 Melatonin 3 Mg Tab PO 3 mg HS PRN Administration Insomnia Miscellaneous Medication 1 each 03/26/20 01:00 03/31/20 07:49 Lidocaine Patch Removal 1 Each TOP Not Given 0100 [facility] Morphine Sulfate 2 mg 03/23/20 02:16 03/29/20 20:30 Morphine 2 Mg/Ml Vial SLOW IVP 2 mg Q4H PRN Administration severe pain 4-10 Nifedipine 90 mg 03/28/20 09:00 03/31/20 16:19 Nifedipine Xl 90 Mg Tab PO 90 mg DAILY FLORI Administration Pantoprazole Sodium 40 mg 03/23/20 09:00 03/31/20 16:19 Pantoprazole 40 Mg Tab PO 40 mg DAILY FLORI Administration Polyethylene Glycol 17 gm 03/28/20 09:00 03/31/20 16:20 Polyethylene Glycol 3350 17 Gm Packet PO Not Given DAILY FLORI Multivit/Folic Acid/Iron 1 tab 03/28/20 09:00 03/31/20 16:18 Vitamin 1 Tab PO 1 tab DAILY FLORI Administration Senna/Docusate Sodium 1 tab 03/28/20 21:00 03/31/20 16:16 Senokot S 8.6-50 Mg Tab PO Not Given BID FLORI Sodium Chloride 10 ml 03/22/20 20:41 03/24/20 04:02 Flush - Normal Saline 10 Ml Syringe IVF 10 ml PRN PRN Administration Saline Flush Tramadol HCl 50 mg 03/23/20 16:54 03/30/20 21:41 Tramadol Hcl 50 Mg Tab PO 50 mg Q4H PRN Administration Moderate Pain (4-6) Trazodone HCl 50 mg 03/22/20 22:32 03/29/20 16:22 Trazodone Hcl 50 Mg Tab PO 50 mg HS PRN Administration Pain Hospitalist Exam Vitals: Vital Signs (12 hours) Temp Pulse Resp BP Pulse Ox 03/31/20 15:55 97.6 F 66 17 188/86 H 95 03/31/20 07:10 98.3 F 70 16 178/81 H 94 L Weight Admit Weight 176 lb 5.917 oz Weight 187 lb 9.6 oz Neck: supple Heart: RRR, no murmur, no gallops Respiratory: no wheezes, no rales Gastrointestinal: soft, non-tender, normal bowel sounds Extremities: 1+ LE edema Extremities - other findings: Left arm bruit felt Hosp A/P - Plan (1) Renal failure (ARF), acute on chronic Code(s): N17.9 - ACUTE KIDNEY FAILURE, UNSPECIFIED; N18.9 - CHRONIC KIDNEY DISEASE, UNSPECIFIED Status: Acute (2) Chronic pain disorder Code(s): G89.4 - CHRONIC PAIN SYNDROME Status: Chronic (3) Dyslipidemia Code(s): E78.5 - HYPERLIPIDEMIA, UNSPECIFIED Status: Acute (4) Hypertension Code(s): I10 - ESSENTIAL (PRIMARY) HYPERTENSION Status: Chronic Qualifiers: Hypertension type: essential hypertension Qualified Code(s): I10 - Essential (primary) hypertension (5) Obesity (BMI 30.0-34.9) Code(s): E66.9 - OBESITY, UNSPECIFIED Status: Chronic (6) Weakness Code(s): R53.1 - WEAKNESS Status: Chronic - Plan acute on chronic renal failure - sent by [facility] due to renal failure - h/d schedule for today for the 1st time - gen surg consulted, s/p h/d cath placement on 03/23/2019 - nephro on case - 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 We will put an inpatient consult for rehab. Family and patient updated. We will continue to monitor. Patient's lower back pain has improved. Possible will undergo fistula placement on Sunday. 03/27 patient's labs stable will increase Procardia to 90 mg daily. Waiting for placement. Possible surgery on Tuesday 03/28 will add prn meds for constipation. possible fistula placement on sunday. 03/29 pt up in bed s/p fistula placement. possible discharge when ok with surgery. 2/2 patient going for another procedure tomorrow for her fistula. We will continue to monitor we will discharge as soon as okay with surgery. 2/3 status post left AV fistula thrombosed this was placed in the basilic vein. Status post left upper arm graft placed in the brachial artery and large axillary vein. We will check labs today and will discharge patient in the a.m.
[2020-03-31] MEDS: HYDROcodone/Acetaminophen 5/325 mg Tablet PO PRN ×2 (18:32→22:37)
[2020-03-31 19:21] LABS: #Basophils 0.1 thou/uL (0.0-0.2); #Eosinphils 0.2 thou/uL (0.0-0.7); #Lymphocytes 1.8 thou/uL (1.20-3.40); %Basophils 0.7 % (0.0-1.0); %Eosinophils 2.8 % (0.0-10.0); %Lymphocytes 22.5 % (21.0-51.0); %Monocytes 12.4 % (0.0-10.0); %Neutrophils 61.6 % (42.0-75.0); Hemoglobin 9.8 g/dL (12.0-16.0); Mean Corpuscular HGB CONC 30.9 g/dL (32.0-36.0); Mean Corpuscular Hemoglobin 29.4 pg (27.0-31.0); Platelet Count 218 thou/uL (130-400); RBC Distribution Width 14.3 % (11.5-14.5); Red Blood Cell (RBC) Count 3.34 mill/uL (4.20-5.40); White Blood Cell (WBC) Count 8.1 thou/uL (4.8-10.8)
[2020-03-31] MEDS: Morphine 2 MG/ML VIAL SLOW IVP PRN (19:37)
[2020-03-31 19:40] LABS: Anion Gap 11 mmol/L (10-20); BUN (Urea Nitrogen) 18 mg/dL (9.8-20.1); Calc. Creatinine Clearance 23 mL/min (70-130); Carbon Dioxide 22 mmol/L (23-31); Chloride 111 mmol/L (98-107); Glucose 116 mg/dL (83-110); Potassium 3.8 mmol/L (3.5-5.1); Sodium 140 mmol/L (136-145)
[2020-03-31] MEDS: traMADol HCl 50 MG TAB PO PRN (19:40)
[2020-03-31] MEDS: Melatonin 3 MG TAB PO PRN (21:00)
[2020-03-31] MEDS: traZODone HCl 50 MG TAB PO PRN (21:00)
[2020-04-01] MEDS: Transdermal Patch Removal TOP SCH (00:46)
[2020-04-01] MEDS: Morphine 2 MG/ML VIAL SLOW IVP PRN ×2 (00:49→21:54)
[2020-04-01] MEDS: traMADol HCl 50 MG TAB PO PRN ×3 (00:50→12:08)
[2020-04-01] MEDS: HYDROcodone/Acetaminophen 5/325 mg Tablet PO PRN ×2 (05:04→12:08)
[2020-04-01] MEDS: FLUoxetine HCl 20 MG CAP PO SCH (08:39)
[2020-04-01] MEDS: Ferrous Sulfate 325 MG TAB PO SCH (08:39)
[2020-04-01] MEDS: Cholecalciferol 1,000 UNITS (25 MCG) TAB PO SCH (08:39)
[2020-04-01] MEDS: Famotidine 20 MG TAB PO SCH (08:39)
[2020-04-01] MEDS: Gabapentin 300 MG CAP PO SCH ×2 (08:40→22:05)
[2020-04-01] MEDS: hydrALAZINE 25 MG TAB PO SCH ×3 (08:40→22:06)
[2020-04-01] MEDS: NIFEdipine XL 90 MG TAB PO SCH (08:40)
[2020-04-01] MEDS: Heparin 5,000 UNITS/ML VIAL SC SCH ×2 (08:40→22:05)
[2020-04-01] MEDS: Polyethylene Glycol 3350 17 GM Packet PO SCH (08:41)
[2020-04-01] MEDS: Prenatal Vitamin 1 TAB PO SCH (08:41)
[2020-04-01] MEDS: Senokot S 8.6-50 MG TAB PO SCH ×2 (08:41→22:05)
--- NOTE | 2020-04-01 09:29 | CON ---
DATE OF CONSULTATION: This is a 79-year-old female with end-stage renal disease, who has undergone a couple of access procedures this week by Dr. Marquez. Kidney disease is probably related to hypertension as she has no history of diabetes mellitus. She is nonsmoker. Past surgical history includes cholecystectomy, appendectomy, hysterectomy, hip replacement, and back surgeries. She initially had a primary AV fistula in the left upper forearm and this did not have a good bruit in it the day afterwards, so Dr. Marquez went back and did a brachial artery to axillary vein graft. She has also had a right internal jugular hemodialysis catheter placed, which is being utilized and plans for dialysis today. Last night, she had rather severe pain that she said began after the vascular access procedure and persist today and she is hesitant to use her left hand due to discomfort. On examination, she has a left jugular central line and a right jugular exiting on the chest dialysis catheter with no obvious carotid bruits. She has a soft systolic murmur on cardiac exam with a regular rate and rhythm. Her abdomen has a healed midline scar, it is nontender. She has palpable pedal pulses bilaterally. She has thin skin on her left arm with minimal bruising and mild swelling, and I am unable to palpate a radial artery. Fingernails appear dusky. Plan at this time would be to perform angiography to evaluate the circulation in her left arm to confirm a steal rather than an obstructive lesion and informed consent has been obtained. Job ID: [id number]
[2020-04-01] MEDS ORDERED: Dexamethasone 20 MG/5 ML VIAL ONE (09:55)
[2020-04-01] MEDS ORDERED: Lidocaine 1% PF 5 ML VIAL ONE (09:55)
[2020-04-01] MEDS ORDERED: Ondansetron PF 4 MG/2 ML Vial ONE (09:55)
[2020-04-01] MEDS ORDERED: PROPOFOL 200 MG/20 ML VIAL ONE (09:55)
[2020-04-01] MEDS ORDERED: PHENYLEPHRINE-NS 100 MCG/ML 10 ML SYRINGE ONE (09:55)
--- NOTE | 2020-04-01 10:33 | PRG ---
DATE OF SERVICE: Ms. Betancourt last night complained of extreme left hand pain with decreased motion. The nurse called me, we prescribed analgesics. This morning, patient stated her pain is somewhat better, but she cannot still move her hand. The patient as recalled underwent 03/29/2020 left arm fistula. She had inflow proximal radial artery, outflow basilic vein only upper arm as her cephalic vein upper arm was fibrosed from previous IV access. The next day, on 03/30/2020, it was noted that her fistula was thrombosed. To avoid repeat COVID swabbing and future necessity of outpatient surgery, she underwent this hospitalization, 03/31/2020, placement of left upper arm tapered dialysis graft. As noted previously, her basilic vein fistula was thought to be thrombosed as there is no thrill or bruit. Re-evaluation this morning reveals that she is unable to move her hand or fingers, although her pain is somewhat improved. She has a very faintly Doppler radial and ulnar pulses that become very prominent with occlusion of her graft. 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 I doubt that she has a functioning basilic vein fistula as it was felt this was thrombosed clinically, but with her ischemia, this is a concern. I think this is unlikely since there was no thrill or bruit. Nonetheless, I have consulted Dr. Luis Armando Bergeron to do an arteriogram urgently. Unfortunately, there are no angiographic suites available for Dr. Bergeron to do this morning and therefore the patient was sent to dialysis. As soon as an angiographic suite becomes available, arterial anatomy will be delineated and we will plan most likely DRIL procedure in left arm for her left hand ischemia secondary to an arterial steal syndrome. This has been discussed with the patient and she agrees. Job ID: [id number]
[2020-04-01] MEDS ORDERED: Heparin 10,000 UNITS/ 10 ML VIAL ONE (11:34)
[2020-04-01] MEDS ORDERED: Iopamidol 370 76% 50 ML VIAL FS ONE (11:36)
[2020-04-01] MEDS: Lidocaine 5% Patch TD SCH (13:16)
[2020-04-01] MEDS ORDERED: hydrALAZINE 20 MG/ML VIAL ONE ×2 (13:31→18:28)
[2020-04-01] MEDS ORDERED: Fentanyl 100 MCG/2 ML VIAL ONE ×4 (13:45→18:32)
[2020-04-01] MEDS ORDERED: Labetalol HCl 100 MG/20 ML VIAL ONE ×2 (15:13→18:04)
[2020-04-01] MEDS ORDERED: EPINEPHrine 1 MG/ML AMP ONE ×2 (15:29→15:30)
[2020-04-01] MEDS ORDERED: Bupivacaine PF 0.5% 30 ML VIAL ONE ×2 (15:29→15:30)
[2020-04-01] MEDS ORDERED: Heparin 5,000 UNITS/ML VIAL ONE (15:29)
[2020-04-01] MEDS ORDERED: Phenylephrine 10 MG/ML VIAL ONE (15:45)
[2020-04-01] MEDS ORDERED: Levofloxacin 500 mg/D5W 100 ml Premix Bag ONE (16:14)
[2020-04-01] MEDS ORDERED: Protamine Sulfate 50 MG/5 ML VIAL ONE (17:52)
[2020-04-01] MEDS ORDERED: Promethazine HCl 25 MG/ML VIAL IM PRN (18:09)
[2020-04-01] MEDS ORDERED: Promethazine HCl 25 MG/ML VIAL SLOW IVP PRN (18:09)
[2020-04-01] MEDS ORDERED: Ondansetron HCl/PF 4 MG/2 ML Vial IVP PRN (18:09)
[2020-04-01] MEDS ORDERED: Labetalol HCl 100 MG/20 ML VIAL SLOW IVP SCH (19:30)
[2020-04-02] MEDS: traMADol HCl 50 MG TAB PO PRN ×3 (00:32→14:54)
[2020-04-02] MEDS: Transdermal Patch Removal TOP SCH (00:32)
[2020-04-02] MEDS: hydrALAZINE 20 MG/ML VIAL SLOW IVP PRN ×2 (00:47→06:04)
--- NOTE | 2020-04-02 00:56 | OP ---
DATE OF PROCEDURE: 04/01/2020 PREOPERATIVE DIAGNOSES: End-stage renal disease, recently status post tapered PTFE dialysis graft, left upper arm, developing arterial steal and ischemic hand. Preoperative arteriogram by Dr. Neal Hastings, occluded distal radial artery, thrombosed fistula from earlier in the week. POSTOPERATIVE DIAGNOSES: End-stage renal disease, recently status post tapered PTFE dialysis graft, left upper arm, developing arterial steal and ischemic hand. Preoperative arteriogram by Dr. Neal Hastings, occluded distal radial artery, thrombosed fistula from earlier in the week. PROCEDURE: DRIL procedure (distal revascularization interval ligation), saphenous vein reversed from the left thigh. ANESTHESIA: General, local 0.25% Marcaine with epinephrine 50 mL. DESCRIPTION OF PROCEDURE: The patient was taken to the operating room, where under general anesthesia, left thigh, groin, and upper extremity prepared with ChloraPrep and draped in routine fashion. Incision was made in the left medial upper arm over the brachial artery. Carried through skin and subcutaneous tissue through the old scar from the previous graft brachial artery anastomosis and distally exposing the brachial artery, proximal and distal to the graft artery anastomosis. Brachial artery dissected free surrounding the silastic vessel loops. Saphenous vein harvested from the left thigh short-segment incision made, carried through skin and subcutaneous tissue. Saphenous vein dissected free and saphenofemoral stump ligated with suture ligature of 2-0 silk and stump distally ligated with 2-0 silk, transected, flushed with heparinized saline solution, placed in saline solution. Good hemostasis obtained with cautery. Subcutaneous tissue was approximated with 3-0 Monocryl, skin with subdermal 4-0 Monocryl, local anesthetic totaling skin and subcutaneous tissue for postop pain control. Attention turned to the arm. Vein distended with heparinized saline solution reversed and vascular clamps placed across the brachial artery. Proximal to the graft artery anastomosis, longitudinal arteriotomy made sharply, elongated with [place] scissors and vein spatulated accordingly and end vein to side brachial artery anastomosis completed with continuous suture of 6-0 Prolene completing anastomosis, gained hemostasis with 6-0 Prolene, releasing vascular control. There was excellent flow in the reverse vein graft. It distended nicely and very large. At this point, the brachial artery was ligated just distal to the graft artery anastomosis, ligated with 2-0 silk tie. Artery clamped distally. Of note, this patient had been given 6000 units of heparin intravenously prior to clamping the artery. Adequate circulation time allowed. End brachial artery spatulated and vein trimmed to length, spatulated, end vein to end brachial artery anastomosis was created with continuous suture of 6-0 Prolene, releasing clamps on a good flow into the hand and graft. Excellent Doppler signal noted in the ulnar artery. Good hemostasis noted. Patient given 25 mg of protamine intravenously. Subcutaneous tissue was approximated with 3-0 Monocryl, skin with subdermal 4-0 Monocryl and Sec[place] glue applied. Job ID: [id number]
[2020-04-02] MEDS: cloNIDine 0.1 MG TAB PO PRN (01:53)
[2020-04-02] MEDS: Morphine 2 MG/ML VIAL SLOW IVP PRN (01:57)
--- NOTE | 2020-04-02 06:59 | OP ---
DATE OF PROCEDURE: 04/01/2020 PREOPERATIVE DIAGNOSIS: Ischemic left hand. PROCEDURE PERFORMED: Left arm angiogram. DESCRIPTION OF PROCEDURE: After prepping and draping, ultrasound-guided puncture of the right common femoral artery was carried out. A wire and 5-Slovenian dilator and sheath were placed. An angled [place] catheter was then advanced over a wire and attempts to cannulate the subclavian artery on the left were unsuccessful due to the lack of torsion control in the tip of the catheter. There appeared to be a lot of play in the iliac system with the catheter, and for this reason, the 5-Slovenian short sheath was exchanged for a Destination 45-cm 5-Slovenian sheath. Following this, the subclavian artery could be cannulated, but the wire would not advance without kicking out the catheter. A VARGAS guide catheter was then utilized and this was able to be advanced down the subclavian into the axillary and then brachial artery, where runoff was obtained. The catheter was then withdrawn and the axillary artery was examined and the catheter was then removed and sheath is to be removed. FINDINGS: The patient had no evidence of disease in the axillary or brachial artery. The fistula was intact and there was no distal flow in the brachial artery except with compression of the AV fistula graft, at which point the distal brachial artery filled, giving rise to the origin of the radial artery, which was then occluded at the site of a previous AV fistula and then a small ulnar artery was patent at least to the distal forearm with the hand not being specifically examined. The patient tolerated the procedure well. FLUORO: 13 minutes. CONTRAST: 20 mL. Job ID: [id number]
[2020-04-02] MEDS: Famotidine 20 MG TAB PO SCH (09:42)
[2020-04-02] MEDS: Ferrous Sulfate 325 MG TAB PO SCH (09:42)
[2020-04-02] MEDS: hydrALAZINE 25 MG TAB PO SCH ×3 (09:46→19:46)
[2020-04-02] MEDS: Prenatal Vitamin 1 TAB PO SCH (09:46)
[2020-04-02] MEDS: NIFEdipine XL 90 MG TAB PO SCH (09:47)
[2020-04-02] MEDS: Gabapentin 300 MG CAP PO SCH ×2 (09:48→19:45)
[2020-04-02] MEDS: Senokot S 8.6-50 MG TAB PO SCH ×2 (09:49→19:45)
[2020-04-02] MEDS: FLUoxetine HCl 20 MG CAP PO SCH (09:50)
[2020-04-02] MEDS: Polyethylene Glycol 3350 17 GM Packet PO SCH (09:53)
[2020-04-02] MEDS: Cholecalciferol 1,000 UNITS (25 MCG) TAB PO SCH (09:53)
[2020-04-02] MEDS: Heparin 5,000 UNITS/ML VIAL SC SCH ×2 (09:53→19:45)
[2020-04-02 11:31] VITALS: BMI 29.9
[2020-04-02 11:56] LABS: Anion Gap 17 mmol/L (10-20); BUN (Urea Nitrogen) 24 mg/dL (9.8-20.1); Calc. Creatinine Clearance 21 mL/min (70-130); Calcium 8.3 mg/dL (7.8-10.44); Carbon Dioxide 23 mmol/L (23-31); Chloride 97 mmol/L (98-107); Glucose 112 mg/dL (83-110); Potassium 4.8 mmol/L (3.5-5.1); Sodium 132 mmol/L (136-145)
[2020-04-02] MEDS: Acetaminophen 500 MG TAB PO PRN (13:13)
[2020-04-02] MEDS: Lidocaine 5% Patch TD SCH (13:14)
--- NOTE | 2020-04-02 17:09 | PRG ---
DATE OF SERVICE: 04/02/2020 SUBJECTIVE: Marilynn Betancourt is doing well today. Her hand pain is much improved. Her mobility, however, is little. She has good capillary refill, warm fingers and hand. She has excellent dopplerable pulses. Surgical wounds look good. The harvest vein site in left thigh looks good. 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 The patient has a degree of residual ischemic neuritis. This will take a period of time for her pain to completely resolve and she will need hand therapy. Nothing more surgically can be done. Her dialysis graft is patent with the DRIL procedure . We would recommend that she can be discharged to rehab. She should follow up with me in 2 to 3 weeks. Job ID: [id number]
[2020-04-02 19:47] VITALS: BP 110/58
[2020-04-02 19:51] VITALS: TEMP 98.7
[2020-04-02] MEDS ORDERED: traMADol HCl 50 MG TAB PO PRN (20:15)
--- NOTE | 2020-04-03 18:39 | EKG ---
Test Reason : Blood Pressure : / mmHG Vent. Rate : 079 BPM Atrial Rate : 079 BPM P-R Int : 196 ms QRS Dur : 138 ms QT Int : 440 ms P-R-T Axes : 062 017 050 degrees QTc Int : 504 ms Normal sinus rhythm Right bundle branch block Inferior infarct , age undetermined Cannot rule out Anterior infarct , age undetermined Abnormal ECG Confirmed by CAMI LEVI ([id number]), editor producer TAMEKA BLOCK ([id number]) on 04/03/2020 6:38:44 PM Referred By: Confirmed By:CAMI LEVI
== END 2020-04-02 20:00 | DRG 674 ==
LOC: ERS 15:35 → 2NO 19:37
PROVIDERS: ADMIT Internal Medicine; ATTEND Internal Medicine
PROC: 0JH63XZ Insertion of Tunneled Vascular Access Device into Chest Subcutaneous Tissue and Fascia, Percutaneous Approach (ICD-10-PCS; principal; 2020-03-23)
PROC: 02HV33Z Insertion of Infusion Device into Superior Vena Cava, Percutaneous Approach (ICD-10-PCS; 2020-03-23)
PROC: B548ZZA Ultrasonography of Superior Vena Cava, Guidance (ICD-10-PCS; 2020-03-23)
PROC: 5A1D70Z Performance of Urinary Filtration, Intermittent, Less than 6 Hours Per Day (ICD-10-PCS; 2020-03-24)
PROC: 031C09F Bypass Left Radial Artery to Lower Arm Vein with Autologous Venous Tissue, Open Approach (ICD-10-PCS; 2020-03-29)
PROC: 05BA0ZZ Excision of Left Brachial Vein, Open Approach (ICD-10-PCS; 2020-03-29)
PROC: 3E033XZ Introduction of Vasopressor into Peripheral Vein, Percutaneous Approach (ICD-10-PCS; 2020-03-29)
PROC: 03WY0JZ Revision of Synthetic Substitute in Upper Artery, Open Approach (ICD-10-PCS; 2020-03-31)
PROC: 06BQ0ZZ Excision of Left Saphenous Vein, Open Approach (ICD-10-PCS; 2020-04-01)
PROC: B31J1ZZ Fluoroscopy of Left Upper Extremity Arteries using Low Osmolar Contrast (ICD-10-PCS; 2020-04-01)
DX: N17.9 Acute kidney failure, unspecified (principal); I12.0 Hypertensive chronic kidney disease with stage 5 chronic kidney disease or end stage renal disease; E87.2 Acidosis; I82.612 Acute embolism and thrombosis of superficial veins of left upper extremity; T82.868A Thrombosis due to vascular prosthetic devices, implants and grafts, initial encounter; T82.898A Other specified complication of vascular prosthetic devices, implants and grafts, initial encounter; I75.012 Atheroembolism of left upper extremity; Z20.822 Contact with and (suspected) exposure to COVID-19; E78.5 Hyperlipidemia, unspecified; G89.4 Chronic pain syndrome; E66.9 Obesity, unspecified; D63.1 Anemia in chronic kidney disease; F41.9 Anxiety disorder, unspecified; F32.9 Major depressive disorder, single episode, unspecified; M19.90 Unspecified osteoarthritis, unspecified site; Z96.642 Presence of left artificial hip joint; N18.6 End stage renal disease; K59.00 Constipation, unspecified; Y83.2 Surgical operation with anastomosis, bypass or graft as the cause of abnormal reaction of the patient, or of later complication, without mention of misadventure at the time of the procedure; I73.9 Peripheral vascular disease, unspecified; Z88.1 Allergy status to other antibiotic agents; Z88.8 Allergy status to other drugs, medicaments and biological substances; Z68.29 Body mass index [BMI] 29.0-29.9, adult; Z79.899 Other long term (current) drug therapy; Z90.49 Acquired absence of other specified parts of digestive tract; Z90.710 Acquired absence of both cervix and uterus
CPT/HCPCS: 36012; 36415; 71045; 75710; 76942; 80048; 80053; 81001; 82553; 83735; 84484; 85025; 86580; 86704; 86705; 86706; 86707; 86708; 86803; 87086; 87340; 87350; 87635; 90935; 93005; 93010; 93306; 93970; 96374; C1751; C1752; G0257; J0171; J0360; J1100; J1644; J1956; J2001; J2250; J2270; J2370; J2405; J2704; J2720; J3010; J3490; L8670; Q9967; S0020; U0003; U0005

== ENCOUNTER 2020-05-07 06:03 | Day surgery (SDC) | payer MEDICARE ==
[2020-05-06 09:34] VITALS: BMI 29.0
[2020-05-07] MEDS ORDERED: Lidocaine 1% (PF) 30 ML VIAL ONE (06:39)
[2020-05-07] MEDS ORDERED: hydrALAZINE 20 MG/ML VIAL ONE (07:40)
[2020-05-07] MEDS ORDERED: cloNIDine 0.1 MG TAB ONE (07:42)
[2020-05-07] MEDS ORDERED: Fentanyl 100 MCG/2 ML VIAL ONE ×3 (08:21→14:14)
[2020-05-07] MEDS ORDERED: Lidocaine 1% PF 5 ML VIAL ONE (09:07)
[2020-05-07] MEDS ORDERED: Ondansetron PF 4 MG/2 ML Vial ONE (09:07)
[2020-05-07] MEDS ORDERED: ePHEDrine 50 MG/ML VIAL ONE (09:07)
[2020-05-07] MEDS ORDERED: PHENYLEPHRINE-NS 100 MCG/ML 10 ML SYRINGE ONE (09:07)
[2020-05-07] MEDS ORDERED: PROPOFOL 200 MG/20 ML VIAL ONE (09:07)
[2020-05-07] MEDS ORDERED: Dexamethasone 20 MG/5 ML VIAL ONE (09:07)
[2020-05-07] MEDS ORDERED: Iopamidol 370 76% 50 ML VIAL FS ONE (10:35)
[2020-05-07] MEDS ORDERED: HYDROmorphone 0.5 MG/0.5 ML SYRINGE ONE (10:55)
[2020-05-07] MEDS ORDERED: Bupivacaine 0.25% HCL 30 ML VIAL ONE (10:58)
[2020-05-07] MEDS ORDERED: Lidocaine 1% w/Epinephrine 1:100K 20 ML VIAL ONE (10:58)
[2020-05-07] MEDS ORDERED: HYDROcodone/Acetaminophen 5/325 mg Tablet ONE (15:23)
[2020-05-07] MEDS ORDERED: Heparin 1,000 UNITS/ML VIAL ONE (15:34)
== END 2020-05-07 16:15 ==
LOC: SDC 06:03
PROVIDERS: ATTEND Thoracic Surgery (Cardiothoracic Vascular Surgery)
DX: I70.228 Atherosclerosis of native arteries of extremities with rest pain, other extremity (principal); I12.9 Hypertensive chronic kidney disease with stage 1 through stage 4 chronic kidney disease, or unspecified chronic kidney disease; N18.9 Chronic kidney disease, unspecified; J42 Unspecified chronic bronchitis; F32.9 Major depressive disorder, single episode, unspecified; M81.0 Age-related osteoporosis without current pathological fracture; Z79.899 Other long term (current) drug therapy; Z88.1 Allergy status to other antibiotic agents; Z88.5 Allergy status to narcotic agent; Z88.6 Allergy status to analgesic agent
CPT/HCPCS: 36216; 36217; 75822; 76942; J0360; J0690; J1100; J1170; J1644; J2001; J2405; J2704; J3010; J3490; Q9967; S0020

== ENCOUNTER 2020-05-24 12:09 | Inpatient (IN) | payer MEDICARE ==
[~2020-05-24 12:09] MED LIST: Heparin 10,000 UNITS/ 10 ML VIAL ONE; Iopamidol-370 76% 500 ML 1 ML ONE
[2020-05-24 14:17] LABS: #Basophils 0.1 thou/uL (0.0-0.2); #Eosinphils 0.2 thou/uL (0.0-0.7); #Lymphocytes 2.1 thou/uL (1.20-3.40); #Monocytes 0.7 thou/uL (0.11-0.59); #Neutrophils 5.4 thou/uL (1.40-6.50); %Basophils 0.8 % (0.0-1.0); %Lymphocytes 25.1 % (21.0-51.0); %Monocytes 8.5 % (0.0-10.0); %Neutrophils 63.6 % (42.0-75.0); Hemoglobin 11.5 g/dL (12.0-16.0); Mean Corpuscular HGB CONC 31.2 g/dL (32.0-36.0); Mean Corpuscular Hemoglobin 31.2 pg (27.0-31.0); Mean Platelet Volume 6.3 fL (7.4-10.4); Platelet Count 249 thou/uL (130-400); Red Blood Cell (RBC) Count 3.68 mill/uL (4.20-5.40); White Blood Cell (WBC) Count 8.5 thou/uL (4.8-10.8)
[2020-05-24 14:39] LABS: ALT (SGPT) 9 U/L (8-55); AST (SGOT) 19 U/L (5-34); Albumin 3.2 g/dL (3.4-4.8); Alkaline Phosphatase 73 U/L (40-110); Anion Gap 16 mmol/L (10-20); BUN (Urea Nitrogen) 50 mg/dL (9.8-20.1); Bilirubin, Total 0.4 mg/dL (0.2-1.2); Calc. Creatinine Clearance 0 mL/min (70-130); Calcium 8.6 mg/dL (7.8-10.44); Carbon Dioxide 25 mmol/L (23-31); Chloride 101 mmol/L (98-107); Globulin 2.6 g/dL (2.4-3.5); Glucose 86 mg/dL (83-110); Potassium 4.8 mmol/L (3.5-5.1); Protein, Total 5.8 g/dL (5.8-8.1); Sodium 137 mmol/L (136-145)
[2020-05-24 15:01] LABS: CKMB 2.8 ng/mL (0-6.6)
[2020-05-24 15:10] LABS: Bacteria/HPF 4+ HPF (None Seen); Bilirubin Negative (Negative); Blood, Urine Trace (Negative); Clarity Extra Turbid (Clear); Glucose, Urine (Dipstick) Normal (Negative); Ketone, Urine Negative (Negative); Leukocyte 500 Leu/uL (Negative); Nitrite Negative (Negative); Protein, Urine (Dipstick) 300 mg/dL (Neg-Trace); RBC/HPF 0-3 HPF (0-3); Specific Gravity, Urine 1.012 (1.002-1.036); Transitional Epithelial 0-3 HPF (None Seen); Urobilinogen Normal mg/dL (Less than 2); WBC/HPF Greater than 50 HPF (0-3); pH, Urine 7.5 (5.0-9.0)
[2020-05-24 15:19] LABS: Amphetamine Not Detected (NotDetected); Barbiturates Screen Not Detected (NotDetected); Benzodiazepine Screen Not Detected (NotDetected); Cocaine Metabolite Screen Not Detected (NotDetected); Medtox Control Line Valid? VALID (VALID); Medtox Reader # READER 4; Methadone Not Detected (NotDetected); Methamphetamine Not Detected (NotDetected); Opiate Screen Detected (NotDetected); Oxycodone Screen Not Detected (NotDetected); Phencyclidine (PCP) Not Detected (NotDetected); THC/Cannabinoid Screen Not Detected (NotDetected); Tricyclic Screen Not Detected (NotDetected)
[2020-05-24] MEDS ORDERED: diphenhydrAMINE 50 MG/ML VIAL ONE (16:58)
[2020-05-24 17:10] LABS: HBSAg Index 0.22 S/CO (0-0.99); Hep B Surf Ag Non-Reactive S/CO (NonReactive)
[2020-05-24] MEDS ORDERED: Aspirin 325 MG TAB ONE (19:31)
[2020-05-24 20:06] LABS: CKMB 2.6 ng/mL (0-6.6)
[2020-05-24] MEDS ORDERED: Acetaminophen 325 MG TAB PO PRN (22:08)
[2020-05-24] MEDS ORDERED: levETIRAcetam in NS 500 MG in Premix Bag 1 BAG IVPB SCH (23:15)
[2020-05-24] MEDS ORDERED: Acetaminophen 500 MG TAB PO SCH (23:15)
[2020-05-25] MEDS ORDERED: DAPTOmycin 500 MG VIAL SLOW IVP SCH (04:15)
[2020-05-25 04:52] LABS: SARS-CoV-2 PCR by NAA Not Detected (NotDetected)
[2020-05-25 04:59] LABS: #Eosinphils 0.1 thou/uL (0.0-0.7); #Lymphocytes 2.6 thou/uL (1.20-3.40); #Monocytes 0.6 thou/uL (0.11-0.59); #Neutrophils 3.1 thou/uL (1.40-6.50); %Basophils 0.4 % (0.0-1.0); %Eosinophils 2.2 % (0.0-10.0); %Lymphocytes 40.1 % (21.0-51.0); %Monocytes 9.7 % (0.0-10.0); %Neutrophils 47.7 % (42.0-75.0); Mean Corpuscular HGB CONC 32.6 g/dL (32.0-36.0); Mean Corpuscular Hemoglobin 32.5 pg (27.0-31.0); Mean Corpuscular Volume 99.4 fL (78.0-98.0); Mean Platelet Volume 6.2 fL (7.4-10.4); Platelet Count 244 thou/uL (130-400); RBC Distribution Width 13.9 % (11.5-14.5); Red Blood Cell (RBC) Count 3.71 mill/uL (4.20-5.40); White Blood Cell (WBC) Count 6.5 thou/uL (4.8-10.8)
[2020-05-25 05:19] LABS: Anion Gap 14 mmol/L (10-20); BUN (Urea Nitrogen) 24 mg/dL (9.8-20.1); Calc. Creatinine Clearance 21 mL/min (70-130); Calcium 8.7 mg/dL (7.8-10.44); Carbon Dioxide 26 mmol/L (23-31); Chloride 103 mmol/L (98-107); Glucose 79 mg/dL (83-110); Potassium 4.5 mmol/L (3.5-5.1); Sodium 138 mmol/L (136-145)
[2020-05-25 05:36] LABS: Bilirubin Negative (Negative); Blood, Urine Negative (Negative); Clarity Turbid (Clear); Glucose, Urine (Dipstick) Normal (Negative); Ketone, Urine Negative (Negative); Leukocyte 500 Leu/uL (Negative); Nitrite Negative (Negative); Protein, Urine (Dipstick) 600 mg/dL (Neg-Trace); RBC/HPF 0-3 HPF (0-3); Specific Gravity, Urine 1.018 (1.002-1.036); Squamous Epithelial 0-3 HPF (0-3); Urobilinogen Normal mg/dL (Less than 2); WBC/HPF 21-50 HPF (0-3)
[2020-05-25 05:37] LABS: Bacteria/HPF 1+ HPF (None Seen)
[2020-05-25 05:38] LABS: Urine Culture Reflex Yes Yes
[2020-05-25] MEDS: Piperacillin/Tazobactam 2.25 GM in Sodium Chloride 0.9% 100 ML IVPB SCH ×3 (06:22→21:44)
[2020-05-25] MEDS: Acetaminophen/Codeine 30-300mg Tablet PO PRN ×3 (07:56→20:01)
[2020-05-25] MEDS: Heparin 5,000 UNITS/ML VIAL SC SCH ×2 (08:00→20:02)
[2020-05-25] MEDS: levETIRAcetam in NS 500 MG in Premix Bag 1 BAG IVPB SCH ×2 (08:02→20:02)
[2020-05-25 10:14] VITALS: BMI 27.7
[2020-05-25] MEDS: HYDROcodone/Acetaminophen 5/325 mg Tablet PO PRN (11:19)
[2020-05-25] MEDS: hydrALAZINE 20 MG/ML VIAL SLOW IVP PRN (13:46)
[2020-05-26] MEDS: Acetaminophen/Codeine 30-300mg Tablet PO PRN ×4 (00:38→22:45)
[2020-05-26] MEDS: Piperacillin/Tazobactam 2.25 GM in Sodium Chloride 0.9% 100 ML IVPB SCH ×3 (06:01→22:00)
[2020-05-26] MEDS: Heparin 5,000 UNITS/ML VIAL SC SCH ×2 (12:11→21:45)
[2020-05-26] MEDS: HYDROcodone/Acetaminophen 5/325 mg Tablet PO PRN (12:11)
[2020-05-26] MEDS: levETIRAcetam in NS 500 MG in Premix Bag 1 BAG IVPB SCH ×2 (12:11→21:31)
[2020-05-26] MEDS ORDERED: Morphine 2 MG/ML VIAL SLOW IVP SCH (14:15)
[2020-05-26] MEDS ORDERED: Heparin 10,000 UNITS/ 10 ML VIAL ONE ×2 (14:18→14:19)
[2020-05-27] MEDS: hydrALAZINE 20 MG/ML VIAL SLOW IVP PRN ×2 (04:15→18:12)
[2020-05-27] MEDS: Acetaminophen/Codeine 30-300mg Tablet PO PRN ×4 (04:26→20:49)
[2020-05-27] MEDS ORDERED: Sterile Water 10 ML VIAL FS PRN ×2 (05:30→06:00)
[2020-05-27] MEDS ORDERED: OLANZapine 10 MG VIAL IM SCH (05:45)
[2020-05-27] MEDS ORDERED: Ziprasidone 20 MG VIAL IM SCH (06:00)
[2020-05-27] MEDS: Piperacillin/Tazobactam 2.25 GM in Sodium Chloride 0.9% 100 ML IVPB SCH ×2 (06:48→15:19)
[2020-05-27] MEDS: Heparin 5,000 UNITS/ML VIAL SC SCH ×2 (09:41→20:52)
[2020-05-27] MEDS: levETIRAcetam in NS 500 MG in Premix Bag 1 BAG IVPB SCH ×2 (09:41→20:50)
[2020-05-27] MEDS ORDERED: Lorazepam 0.5 MG TAB PO SCH (11:30)
[2020-05-27] MEDS ORDERED: Magnevist 469MG/ML 20 ML VIAL ONE (14:07)
[2020-05-27 16:52] LABS: Anion Gap 16 mmol/L (10-20); BUN (Urea Nitrogen) 28 mg/dL (9.8-20.1); Calc. Creatinine Clearance 15 mL/min (70-130); Calcium 9.3 mg/dL (7.8-10.44); Carbon Dioxide 23 mmol/L (23-31); Chloride 106 mmol/L (98-107); Glucose 106 mg/dL (83-110); Potassium 3.8 mmol/L (3.5-5.1); Sodium 141 mmol/L (136-145)
[2020-05-27] MEDS: HYDROcodone/Acetaminophen 5/325 mg Tablet PO PRN (18:16)
[2020-05-27] MEDS: Gabapentin 300 MG CAP PO SCH (20:49)
[2020-05-28] MEDS ORDERED: Ferrous Sulfate 325 MG TAB PO SCH (08:00)
[2020-05-28] MEDS: Acetaminophen/Codeine 30-300mg Tablet PO PRN ×3 (09:06→20:35)
[2020-05-28] MEDS: Heparin 5,000 UNITS/ML VIAL SC SCH ×2 (11:30→20:36)
[2020-05-28] MEDS: levETIRAcetam in NS 500 MG in Premix Bag 1 BAG IVPB SCH ×2 (11:33→20:37)
[2020-05-28] MEDS: Cholecalciferol 1,000 UNITS (25 MCG) TAB PO SCH (11:35)
[2020-05-28] MEDS: Multivitamin W/ Minerals 1 TAB PO SCH (11:35)
[2020-05-28] MEDS: FLUoxetine HCl 20 MG CAP PO SCH (11:35)
[2020-05-28] MEDS: Cefdinir 300 MG CAP PO SCH (11:36)
[2020-05-28] MEDS: HYDROcodone/Acetaminophen 5/325 mg Tablet PO PRN (11:36)
[2020-05-28] MEDS: Gabapentin 300 MG CAP PO SCH ×2 (11:37→20:36)
[2020-05-28] MEDS ORDERED: Heparin 10,000 UNITS/ 10 ML VIAL ONE (13:35)
[2020-05-29] MEDS ORDERED: Senokot 8.6 MG TAB PO PRN (01:38)
[2020-05-29] MEDS: Cefdinir 300 MG CAP PO SCH (09:17)
[2020-05-29] MEDS: FLUoxetine HCl 20 MG CAP PO SCH (09:17)
[2020-05-29] MEDS: Multivitamin W/ Minerals 1 TAB PO SCH ×2 (09:17→09:18)
[2020-05-29] MEDS: Gabapentin 300 MG CAP PO SCH (09:17)
[2020-05-29] MEDS: Cholecalciferol 1,000 UNITS (25 MCG) TAB PO SCH (09:18)
[2020-05-29] MEDS: Heparin 5,000 UNITS/ML VIAL SC SCH (09:25)
[2020-05-29] MEDS: levETIRAcetam in NS 500 MG in Premix Bag 1 BAG IVPB SCH (09:25)
[2020-05-29] MEDS: Acetaminophen/Codeine 30-300mg Tablet PO PRN (09:35)
[2020-05-29] MEDS ORDERED: cloNIDine 0.1 MG TAB PO SCH ×2 (10:15→21:00)
[2020-05-29 11:38] VITALS: BP 154/77; TEMP 98.2
[2020-05-29] MEDS ORDERED: levETIRAcetam 500 MG TAB PO SCH (21:00)
== END 2020-05-29 14:00 | DRG 689 ==
LOC: ERS 12:09 → INTOOBSV 19:06 → 2SE 19:06 → OBSVTOIN 05-26 16:34
PROVIDERS: ADMIT Internal Medicine; ATTEND Internal Medicine
PROC: 5A1D70Z Performance of Urinary Filtration, Intermittent, Less than 6 Hours Per Day (ICD-10-PCS; principal; 2020-05-24)
DX: N39.0 Urinary tract infection, site not specified (principal); N18.6 End stage renal disease; I13.2 Hypertensive heart and chronic kidney disease with heart failure and with stage 5 chronic kidney disease, or end stage renal disease; T82.7XXA Infection and inflammatory reaction due to other cardiac and vascular devices, implants and grafts, initial encounter; I42.9 Cardiomyopathy, unspecified; Z51.5 Encounter for palliative care; F41.9 Anxiety disorder, unspecified; D63.1 Anemia in chronic kidney disease; F03.90 Unspecified dementia, unspecified severity, without behavioral disturbance, psychotic disturbance, mood disturbance, and anxiety; Y84.8 Other medical procedures as the cause of abnormal reaction of the patient, or of later complication, without mention of misadventure at the time of the procedure; E78.5 Hyperlipidemia, unspecified; I50.9 Heart failure, unspecified; G89.29 Other chronic pain; B96.20 Unspecified Escherichia coli [E. coli] as the cause of diseases classified elsewhere; B96.1 Klebsiella pneumoniae [K. pneumoniae] as the cause of diseases classified elsewhere; I65.21 Occlusion and stenosis of right carotid artery; K21.00 Gastro-esophageal reflux disease with esophagitis, without bleeding; E66.9 Obesity, unspecified; F32.9 Major depressive disorder, single episode, unspecified; Z68.27 Body mass index [BMI] 27.0-27.9, adult; Z99.2 Dependence on renal dialysis; Z88.1 Allergy status to other antibiotic agents; Z88.5 Allergy status to narcotic agent; Z88.8 Allergy status to other drugs, medicaments and biological substances; Z79.899 Other long term (current) drug therapy; Z90.49 Acquired absence of other specified parts of digestive tract; Z90.710 Acquired absence of both cervix and uterus; Z86.16 Personal history of COVID-19; D32.0 Benign neoplasm of cerebral meninges
CPT/HCPCS: 36415; 51701; 70450; 70496; 70498; 70553; 80048; 80053; 80306; 81001; 81003; 81015; 82553; 84443; 84484; 85025; 87040; 87077; 87086; 87186; 87340; 87635; 90471; 90732; 90935; 93005; 95712; 95819; 95957; 96365; 96366; 96367; 96372; 96375; 96376; A9579; G0009; G0257; G0378; J0360; J0878; J1200; J1644; J1953; J1956; J2270; J2543; J3490; Q9967; U0003; U0005